=== PATIENT | male | born 1970 | race Two or more races ===

== ENCOUNTER 2022-10-05 17:41 | Emergency (ER) | payer MEDICAID ==
[~2022-10-05] VITALS: Ht 160 cm; Wt 72.2 kg
[2022-10-05 19:37] VITALS: BP 113/72
[2022-10-05] MEDS ORDERED: IBUP800T26 PO (22:41)
[2022-10-05] MEDS ORDERED: PROM1SOL4 PO (22:41)
[2022-10-05] MEDS ORDERED: IBUPROFEN 800 MG TAB PO ONE (22:45)
== END 2022-10-05 22:48 | disposition home or self-care (01) ==
LOC: ER 17:41
DX: U07.1 COVID-19 (principal); E11.9 Type 2 diabetes mellitus without complications; K21.9 Gastro-esophageal reflux disease without esophagitis; E78.5 Hyperlipidemia, unspecified
CPT/HCPCS: 36415; 71046; 87426; 87804

== ENCOUNTER 2022-10-09 20:05 | Emergency (ER) | payer MEDICAID ==
[~2022-10-09] VITALS: Ht 165.1 cm; Wt 80.0 kg
[~2022-10-09 20:05] MED LIST: IBUP800T26 PO; PROM1SOL4 PO
[2022-10-09 22:17] LABS: Basophils # (auto) 0 10 ^3/uL (0-0.2); Basophils % (auto) 0.7 % (0.0-2.0); Eosinophils # (auto) 0.3 10 ^3/uL (0-0.8); Eosinophils % (auto) 6.6 % (0.0-7.0); Hematocrit 44.3 % (41.0-53.0); Hemoglobin 14.9 g/dL (13.5-17.5); Lymphocytes # (auto) 2.3 10 ^3/uL (0.4-5.4); Lymphocytes % (auto) 44.2 % (10.0-50.0); Mean Corpuscular Hemoglobin 33.7 pg (28.0-32.0); Mean Corpuscular Hgb Conc. 33.6 g/dL (32.0-36.0); Mean Corpuscular Volume 100.2 fL (80.0-100.0); Monocytes # (auto) 0.7 10 ^3/uL (0-1.3); Monocytes % (auto) 13.3 % (0.0-12.0); Neutrophils # (auto) 1.8 10 ^3/uL (1.6-8.6); Neutrophils % (auto) 35.2 % (37.0-80.0); Nucleated Red Blood Cells % 0.4 %; Red Blood Cells 4.42 10^6/uL (4.5-5.90); Red Cell Distribution Width 13.8 % (11.8-14.3); White Blood Cell 5.2 10^3/uL (4.4-10.8)
[2022-10-09 22:30] LABS: INR 0.94 (0.9-1.15); Partial Thromboplastin Time 28.8 sec (24.6-33.4)
[2022-10-09 22:33] LABS: Albumin 3.6 g/dL (3.4-5.0); BUN/Creatinine Ratio 18.4 (10.0-20.0); Calcium 8.6 mg/dL (8.5-10.1); Potassium 3.6 mmol/L (3.5-5.1)
[2022-10-09 22:35] LABS: Bilirubin, Total 0.1 mg/dL (0.2-1.0); Total Protein 7.9 g/dL (6.4-8.2)
[2022-10-09] MEDS ORDERED: KETOROLAC TROMETH 60MG/2ML VIAL IM ONE (22:45)
[2022-10-09] MEDS ORDERED: NAP500T PO (22:55)
[2022-10-09 23:21] VITALS: BP 118/74
== END 2022-10-09 23:24 | disposition home or self-care (01) ==
LOC: ER 20:05
DX: U07.1 COVID-19 (principal); E11.9 Type 2 diabetes mellitus without complications; K21.9 Gastro-esophageal reflux disease without esophagitis; E78.5 Hyperlipidemia, unspecified; I20.9 Angina pectoris, unspecified
CPT/HCPCS: 36415; 71045; 80053; 83880; 84484; 85025; 85610; 85730; 87426; 93005; 96372; 99285; J1885

== ENCOUNTER 2023-02-01 16:59 | Emergency (ER) | payer MEDICAID ==
[~2023-02-01] VITALS: Ht 167.6 cm; Wt 70.4 kg
[~2023-02-01 16:59] MED LIST changes: +IBUP-1455 PO; -IBUP800T26 PO; +NAP500T PO
[2023-02-01] MEDS ORDERED: ALBUAER3 IN (19:07)
[2023-02-01] MEDS ORDERED: PRED20TA2 PO (19:07)
[2023-02-01] MEDS ORDERED: AUG875T PO (19:07)
[2023-02-01] MEDS ORDERED: BENZ200C64 PO (19:07)
[2023-02-01] MEDS ORDERED: ALBUTEROL SULF 2.5 MG/0.5ML(0.5%) NEB SOLN NEB ONE (19:15)
[2023-02-01] MEDS ORDERED: DexAMETHasone SOD PHOS 10MG/1ML VIAL INJ IM ONE (19:15)
[2023-02-01] MEDS ORDERED: IPRATROPIUM BROM 0.5 MG/2.5ML INH SOL NEB ONE (19:15)
[2023-02-01 20:26] VITALS: BP 106/81; PULSE 78; RESP 17; TEMP 98.6; O2SAT 96
== END 2023-02-01 20:41 | disposition home or self-care (01) ==
LOC: ER 16:59
DX: J20.9 Acute bronchitis, unspecified (principal); J02.9 Acute pharyngitis, unspecified; E78.5 Hyperlipidemia, unspecified; K21.9 Gastro-esophageal reflux disease without esophagitis; E11.9 Type 2 diabetes mellitus without complications; R06.02 Shortness of breath
CPT/HCPCS: 71045; 94640; 96372; 99283; J1100; J7644

== ENCOUNTER 2023-02-06 01:17 | Emergency (ER) | payer MEDICAID ==
[~2023-02-06] VITALS: Ht 167.6 cm; Wt 160.0 kg
[~2023-02-06 01:17] MED LIST changes: +ALBUAER3 IN; +AUG875T PO; +BENZ200C64 PO
[2023-02-06 02:18] LABS: Basophils # (auto) 0 10 ^3/uL (0-0.2); Basophils % (auto) 0.1 % (0.0-2.0); Eosinophils # (auto) 0 10 ^3/uL (0-0.8); Eosinophils % (auto) 0.2 % (0.0-7.0); Hemoglobin 14.8 g/dL (13.5-17.5); Monocytes # (auto) 0.9 10 ^3/uL (0-1.3); Monocytes % (auto) 8.9 % (0.0-12.0); Neutrophils # (auto) 7.4 10 ^3/uL (1.6-8.6)
[2023-02-06 02:20] LABS: Hematocrit 44.7 % (41.0-53.0); Lymphocytes # (auto) 1.5 10 ^3/uL (0.4-5.4); Lymphocytes % (auto) 15.7 % (10.0-50.0); Mean Corpuscular Hemoglobin 34.1 pg (28.0-32.0); Mean Corpuscular Hgb Conc. 33.1 g/dL (32.0-36.0); Mean Corpuscular Volume 103.2 fL (80.0-100.0); Neutrophils % (auto) 75.1 % (37.0-80.0); Red Blood Cells 4.33 10^6/uL (4.5-5.90); Red Cell Distribution Width 13.7 % (11.8-14.3); White Blood Cell 9.8 10^3/uL (4.4-10.8)
[2023-02-06 03:29] LABS: Alanine Aminotransferase 41 U/L (7-40); Albumin 4.3 g/dL (3.2-4.8); Alkaline Phosphatase 106 U/L (46-116); Anion Gap 9.4 (5-15); Aspartate Aminotransferase 24 U/L (13-40); BUN/Creatinine Ratio 21.7 (10.0-20.0); Blood Urea Nitrogen 20 mg/dL (9-23); Calcium 8.7 mg/dL (8.7-10.4); Carbon Dioxide 18.6 mmol/L (20-30); Chloride 113 mmol/L (98-107); Glucose 123 mg/dL (74-106); Magnesium 2.1 mg/dL (1.6-2.6); Potassium 3.4 mmol/L (3.5-5.1); Sodium 141 mmol/L (136-145)
[2023-02-06 03:30] LABS: Bilirubin, Total 0.4 mg/dL (0.2-1.0); Total Protein 6.9 g/dL (5.7-8.2)
[2023-02-06] MEDS ORDERED: IPRATROPIUM BROM 0.5 MG/2.5ML INH SOL NEB ONE (07:15)
[2023-02-06] MEDS ORDERED: ALBUTEROL SULF 2.5 MG/0.5ML(0.5%) NEB SOLN NEB ONE (07:15)
[2023-02-06] MEDS ORDERED: DexAMETHasone SOD PHOS 10MG/1ML VIAL INJ IV ONE (07:15)
[2023-02-06] MEDS ORDERED: DexAMETHasone SOD PHOS 10MG/1ML VIAL INJ IM ONE (07:45)
[2023-02-06] MEDS ORDERED: PRED10TA PO (07:53)
[2023-02-06 08:39] LABS: Urine Bacteria NONE SEEN /hpf (None Seen); Urine Blood Negative /uL (Negative); Urine Clarity Clear (Clear); Urine Mucus FEW (None Seen); Urine Protein, UAD Negative (Negative); Urine Specific Gravity 1.029 (1.001-1.035); Urine Urobilinogen Normal (Negative); Urine WBC <1 /hpf (0 - 3)
[2023-02-06 08:42] LABS: Urine Color Straw (Yellow)
[2023-02-06 11:50] VITALS: BP 135/81; PULSE 61; RESP 17; TEMP 97.9; O2SAT 81
== END 2023-02-06 11:55 | disposition home or self-care (01) ==
LOC: ER 01:19
DX: J20.9 Acute bronchitis, unspecified (principal); E78.5 Hyperlipidemia, unspecified; K21.9 Gastro-esophageal reflux disease without esophagitis; E11.9 Type 2 diabetes mellitus without complications
CPT/HCPCS: 36415; 71045; 71275; 80053; 81001; 83735; 83880; 84484; 85025; 94640; 96372; 99285; J1100; J7644; Q9967

== ENCOUNTER 2023-03-08 18:10 | Emergency (ER) | payer MEDICAID ==
[~2023-03-08] VITALS: Ht 170.2 cm; Wt 72.8 kg
[~2023-03-08 18:10] MED LIST changes: +PRED10TA PO
[2023-03-08 19:18] LABS: Urine Bacteria NONE SEEN /hpf (None Seen); Urine Blood Negative /uL (Negative); Urine Clarity Clear (Clear); Urine Color Colorless (Yellow); Urine Protein, UAD Negative (Negative); Urine Specific Gravity 1.012 (1.001-1.035); Urine Urobilinogen Normal (Negative); Urine WBC <1 /hpf (0 - 3)
[2023-03-08 20:41] VITALS: BP 104/74; PULSE 80; RESP 18; TEMP 98.6; O2SAT 98
[2023-03-08 22:08] LABS: Basophils # (auto) 0 10 ^3/uL (0-0.2); Basophils % (auto) 0.7 % (0.0-2.0); Eosinophils # (auto) 0.1 10 ^3/uL (0-0.8); Hematocrit 44.4 % (41.0-53.0); Hemoglobin 15.1 g/dL (13.5-17.5); Lymphocytes # (auto) 2.6 10 ^3/uL (0.4-5.4); Mean Corpuscular Hemoglobin 34.8 pg (28.0-32.0); Mean Corpuscular Hgb Conc. 34.1 g/dL (32.0-36.0); Mean Corpuscular Volume 102.1 fL (80.0-100.0); Monocytes # (auto) 0.9 10 ^3/uL (0-1.3); Monocytes % (auto) 11.8 % (0.0-12.0); Neutrophils # (auto) 3.8 10 ^3/uL (1.6-8.6); Neutrophils % (auto) 50.5 % (37.0-80.0); Nucleated Red Blood Cells % 0.1 %; Red Blood Cells 4.35 10^6/uL (4.5-5.90); Red Cell Distribution Width 13.8 % (11.8-14.3); White Blood Cell 7.5 10^3/uL (4.4-10.8)
[2023-03-08 22:21] LABS: Alanine Aminotransferase 32 U/L (7-40); Albumin 4.7 g/dL (3.2-4.8); Alkaline Phosphatase 110 U/L (46-116); Anion Gap 7 (5-15); Aspartate Aminotransferase 29 U/L (13-40); BUN/Creatinine Ratio 13.2 (10.0-20.0); Blood Urea Nitrogen 12 mg/dL (9-23); Calcium 9.1 mg/dL (8.7-10.4); Carbon Dioxide 26 mmol/L (20-30); Chloride 107 mmol/L (98-107); Glucose 98 mg/dL (74-106); Potassium 3.7 mmol/L (3.5-5.1); Sodium 140 mmol/L (136-145)
[2023-03-08 22:22] LABS: Bilirubin, Total 0.4 mg/dL (0.2-1.0); Total Protein 7.4 g/dL (5.7-8.2)
[2023-03-08] MEDS ORDERED: CEPH500T PO (23:34)
[2023-03-08] MEDS ORDERED: AZITTAB PO (23:37)
== END 2023-03-08 23:34 | disposition home or self-care (01) ==
LOC: ER 18:10
DX: N39.0 Urinary tract infection, site not specified (principal); J06.9 Acute upper respiratory infection, unspecified; E11.9 Type 2 diabetes mellitus without complications; K21.9 Gastro-esophageal reflux disease without esophagitis; E78.5 Hyperlipidemia, unspecified; Z79.2 Long term (current) use of antibiotics; Z79.1 Long term (current) use of non-steroidal anti-inflammatories (NSAID); Z79.899 Other long term (current) drug therapy
CPT/HCPCS: 36415; 74176; 80053; 81001; 85025

== ENCOUNTER 2023-04-23 15:34 | Emergency (ER) | payer MEDICAID ==
[~2023-04-23] VITALS: Ht 167.6 cm; Wt 75.5 kg
[~2023-04-23 15:34] MED LIST changes: +AZITTAB PO; +CEPH500T PO
[2023-04-23 16:29] LABS: Basophils # (auto) 0 10 ^3/uL (0-0.2); Basophils % (auto) 0.6 % (0.0-2.0); Eosinophils # (auto) 0.3 10 ^3/uL (0-0.8); Mean Corpuscular Hgb Conc. 34.2 g/dL (32.0-36.0); Nucleated Red Blood Cells % 0.1 %; Red Cell Distribution Width 13.5 % (11.8-14.3)
[2023-04-23 16:30] LABS: Eosinophils % (auto) 3.5 % (0.0-7.0); Hematocrit 43.8 % (41.0-53.0); Lymphocytes # (auto) 2.3 10 ^3/uL (0.4-5.4); Mean Corpuscular Hemoglobin 34.9 pg (28.0-32.0); Mean Corpuscular Volume 102.2 fL (80.0-100.0); Monocytes # (auto) 0.8 10 ^3/uL (0-1.3); Monocytes % (auto) 10.7 % (0.0-12.0); Neutrophils # (auto) 4.4 10 ^3/uL (1.6-8.6); Neutrophils % (auto) 56.2 % (37.0-80.0); Red Blood Cells 4.29 10^6/uL (4.5-5.90); White Blood Cell 7.9 10^3/uL (4.4-10.8)
[2023-04-23 16:45] LABS: Alanine Aminotransferase 30 U/L (7-40); Albumin 4.5 g/dL (3.2-4.8); Alkaline Phosphatase 110 U/L (46-116); Anion Gap 6 (5-15); Aspartate Aminotransferase 27 U/L (13-40); BUN/Creatinine Ratio 12.1 (10.0-20.0); Bilirubin, Total 0.3 mg/dL (0.2-1.0); Blood Urea Nitrogen 11 mg/dL (9-23); Calcium 9.3 mg/dL (8.7-10.4); Carbon Dioxide 25 mmol/L (20-30); Chloride 110 mmol/L (98-107); Glucose 93 mg/dL (74-106); Lipase 49 U/L (12-53); Sodium 141 mmol/L (136-145); Total Protein 6.9 g/dL (5.7-8.2)
[2023-04-23 18:14] VITALS: BP 127/80; PULSE 86; RESP 18; TEMP 98.2; O2SAT 99
[2023-04-23 18:38] LABS: Urine Bacteria FEW /hpf (None Seen); Urine Blood Negative /uL (Negative); Urine Clarity Clear (Clear); Urine Color Yellow (Yellow); Urine Hyaline Cast FEW /lpf (0 - 2); Urine Protein, UAD Negative (Negative); Urine Specific Gravity 1.021 (1.001-1.035); Urine Urobilinogen Normal (Negative); Urine WBC <1 /hpf (0 - 3); Urine pH 5.5 (5.0-8.0)
== END 2023-04-23 18:15 | disposition home or self-care (01) ==
LOC: ER 15:34
DX: R10.84 Generalized abdominal pain (principal); R11.2 Nausea with vomiting, unspecified; R19.7 Diarrhea, unspecified; E11.9 Type 2 diabetes mellitus without complications; K21.9 Gastro-esophageal reflux disease without esophagitis; E78.5 Hyperlipidemia, unspecified; Z79.899 Other long term (current) drug therapy
CPT/HCPCS: 36415; 74176; 80053; 81001; 83690; 83735; 84484; 85025; 93005

== ENCOUNTER 2023-05-10 17:20 | Emergency (ER) | payer MEDICAID ==
[~2023-05-10] VITALS: Ht 170.2 cm; Wt 77.1 kg
[2023-05-10 17:27] VITALS: BP 114/73; RESP 16; O2SAT 97
[2023-05-10 17:37] VITALS: PULSE 89
[2023-05-10 18:44] LABS: Basophils # (auto) 0.1 10 ^3/uL (0-0.2); Basophils % (auto) 0.6 % (0.0-2.0); Eosinophils # (auto) 0.3 10 ^3/uL (0-0.8); Eosinophils % (auto) 2.9 % (0.0-7.0); Hematocrit 42.7 % (41.0-53.0); Hemoglobin 14.5 g/dL (13.5-17.5); Lymphocytes # (auto) 2.9 10 ^3/uL (0.4-5.4); Lymphocytes % (auto) 33.3 % (10.0-50.0); Mean Corpuscular Hemoglobin 34.7 pg (28.0-32.0); Mean Corpuscular Volume 102.2 fL (80.0-100.0); Monocytes # (auto) 0.8 10 ^3/uL (0-1.3); Monocytes % (auto) 9.2 % (0.0-12.0); Neutrophils # (auto) 4.8 10 ^3/uL (1.6-8.6); Nucleated Red Blood Cells % 0.1 %; Red Blood Cells 4.18 10^6/uL (4.5-5.90); Red Cell Distribution Width 13.4 % (11.8-14.3); White Blood Cell 8.8 10^3/uL (4.4-10.8)
[2023-05-10 19:00] LABS: Alanine Aminotransferase 40 U/L (7-40); Albumin 4.4 g/dL (3.2-4.8); Alkaline Phosphatase 111 U/L (46-116); Amylase 59 U/L (30-118); Anion Gap 6 (5-15); Aspartate Aminotransferase 29 U/L (13-40); BUN/Creatinine Ratio 16.7 (10.0-20.0); Blood Urea Nitrogen 16 mg/dL (9-23); Calcium 8.9 mg/dL (8.7-10.4); Carbon Dioxide 26 mmol/L (20-30); Chloride 107 mmol/L (98-107); Glucose 103 mg/dL (74-106); Lipase 44 U/L (12-53); Magnesium 2.1 mg/dL (1.6-2.6); Potassium 4.4 mmol/L (3.5-5.1); Sodium 139 mmol/L (136-145)
[2023-05-10 19:01] LABS: Bilirubin, Total 0.3 mg/dL (0.2-1.0); Total Protein 6.8 g/dL (5.7-8.2)
[2023-05-10] MEDS ORDERED: GOLYTELY 4L KIT PO ONE (19:30)
== END 2023-05-11 00:58 | disposition left against medical advice (07) ==
LOC: ER 17:20
DX: K59.00 Constipation, unspecified (principal); E11.9 Type 2 diabetes mellitus without complications; K21.9 Gastro-esophageal reflux disease without esophagitis; E78.5 Hyperlipidemia, unspecified
CPT/HCPCS: 36415; 74176; 80053; 82150; 83605; 83690; 83735; 84484; 85025; 93005

== ENCOUNTER 2023-12-30 10:34 | Emergency (ER) | payer MEDICAID ==
[~2023-12-30] VITALS: Ht 167.6 cm; Wt 73.5 kg
[2023-12-30 11:15] VITALS: BP 127/75; PULSE 62; RESP 20; TEMP 99; O2SAT 96
[2023-12-30] MEDS: IBUPROFEN 800 MG TAB PO ONE (11:23)
[2023-12-30] MEDS: cefTRIAXone SOD 1,000 MG VL IM ONE (11:26)
[2023-12-30] MEDS ORDERED: CEPH500C PO (11:42)
[2023-12-30] MEDS ORDERED: IBUP-1454 PO (11:42)
== END 2023-12-30 11:55 | disposition home or self-care (01) ==
LOC: ER 10:34
DX: J03.90 Acute tonsillitis, unspecified (principal); I25.2 Old myocardial infarction; E78.5 Hyperlipidemia, unspecified; K21.9 Gastro-esophageal reflux disease without esophagitis; E11.9 Type 2 diabetes mellitus without complications; I25.10 Atherosclerotic heart disease of native coronary artery without angina pectoris; Z79.899 Other long term (current) drug therapy
CPT/HCPCS: 71045; 96372; 99283; J0696

== ENCOUNTER 2024-03-14 16:35 | Inpatient (IN) | payer MEDICAID ==
[~2024-03-14] VITALS: Ht 167.6 cm; Wt 74.1 kg
[~2024-03-14 16:35] MED LIST changes: +CEPH500C PO; +IBUP-1454 PO
[2024-03-14 17:27] LABS: Basophils # (auto) 0 10 ^3/uL (0-0.2); Eosinophils # (auto) 0.2 10 ^3/uL (0-0.8); Hemoglobin 14.8 g/dL (13.5-17.5); Monocytes # (auto) 1.1 10 ^3/uL (0-1.3); Neutrophils # (auto) 5.1 10 ^3/uL (1.6-8.6); White Blood Cell 7.2 10^3/uL (4.4-10.8)
[2024-03-14 17:29] LABS: Basophils % (auto) 0.6 % (0.0-2.0); Eosinophils % (auto) 3.3 % (0.0-7.0); Hematocrit 42.5 % (41.0-53.0); Lymphocytes # (auto) 0.7 10 ^3/uL (0.4-5.4); Lymphocytes % (auto) 10.2 % (10.0-50.0); Mean Corpuscular Hemoglobin 35.7 pg (28.0-32.0); Mean Corpuscular Hgb Conc. 34.9 g/dL (32.0-36.0); Mean Corpuscular Volume 102.3 fL (80.0-100.0); Monocytes % (auto) 15.5 % (0.0-12.0); Neutrophils % (auto) 70.4 % (37.0-80.0); Nucleated Red Blood Cells % 0.2 %; Platelet Count (auto) 215 10^3/uL (140-450); Red Blood Cells 4.15 10^6/uL (4.5-5.90); Red Cell Distribution Width 13.7 % (11.8-14.3)
[2024-03-14 17:41] LABS: Partial Thromboplastin Time 28.1 SEC (24.5-34.5); Prothrombin Time 10.6 sec (9.3-11.8)
[2024-03-14 17:45] LABS: Alanine Aminotransferase 37 U/L (7-40); Albumin 4.4 g/dL (3.2-4.8); Alkaline Phosphatase 125 U/L (46-116); Anion Gap 8 (5-15); Aspartate Aminotransferase 26 U/L (13-40); BUN/Creatinine Ratio 16.9 (10.0-20.0); Bilirubin, Total 0.3 mg/dL (0.2-1.0); Blood Urea Nitrogen 14 mg/dL (9-23); Calcium 9.8 mg/dL (8.7-10.4); Carbon Dioxide 24 mmol/L (20-31); Chloride 109 mmol/L (98-107); Glucose 99 mg/dL (74-106); Potassium 4.2 mmol/L (3.5-5.1); Sodium 141 mmol/L (136-145)
[2024-03-14] MEDS ORDERED: NITROGLYCERIN 0.4 MG SL TAB SL PRN (23:45)
[2024-03-14] MEDS ORDERED: hydrALAZINE HCL 20 MG/ML VL IV PRN (23:45)
[2024-03-15] VITALS (7 sets, daily range): BP systolic 100–115; BP diastolic 72–80; PULSE 95–108; RESP 18–20; TEMP 97.8–98.2; O2SAT 96–99
[2024-03-15 01:44] LABS: COVID19 ANTIGEN SOFIA FIA NEGATIVE (NEGATIVE)
[2024-03-15 01:45] LABS: Rapid Influenza B Negative (Negative)
[2024-03-15 01:47] LABS: Rapid Influenza A Positive (Negative)
[2024-03-15] MEDS: OSELTAMIVIR 75 MG CAP PO ONE (02:34)
[2024-03-15] MEDS ORDERED: LACTATED RINGER'S 1,000 ML IV SCH (06:15)
[2024-03-15] MEDS: cefTRIAXone 1GM/50ML D5W 50 ML IV ONE (06:34)
[2024-03-15] MEDS: SODIUM CHLORIDE 0.9% 500 ML IV ONE (06:34)
[2024-03-15] MEDS: AZITHROMYCIN 500MG/ 250ML 250 ML IV ONE (07:49)
[2024-03-15 09:29] LABS: Hemoglobin 14.6 g/dL (13.5-17.5); White Blood Cell 5.8 10^3/uL (4.4-10.8)
[2024-03-15 09:31] LABS: Mean Corpuscular Hemoglobin 34.9 pg (28.0-32.0); Mean Corpuscular Volume 102.7 fL (80.0-100.0); Platelet Count (auto) 184 10^3/uL (140-450); Red Blood Cells 4.19 10^6/uL (4.5-5.90)
[2024-03-15 09:34] LABS: Basophils % (manual) 0 (0.0-2.0); Blast Cells 0; Metamyelocytes % 0; Myelocytes % 0; Promyelocytes % 0; Reactive Lymphocytes 0
[2024-03-15] MEDS: ACETAMINOPHEN 325 MG TAB PO ONE (09:37)
[2024-03-15 09:39] LABS: Alanine Aminotransferase 35 U/L (7-40); Albumin 4.2 g/dL (3.2-4.8); Alkaline Phosphatase 98 U/L (46-116); Anion Gap 7 (5-15); Aspartate Aminotransferase 22 U/L (13-40); BUN/Creatinine Ratio 9.1 (10.0-20.0); Bilirubin, Total 0.4 mg/dL (0.2-1.0); Blood Urea Nitrogen 8 mg/dL (9-23); Calcium 8.8 mg/dL (8.7-10.4); Carbon Dioxide 25 mmol/L (20-31); Chloride 108 mmol/L (98-107); Glucose 113 mg/dL (74-106); Potassium 3.7 mmol/L (3.5-5.1); Sodium 140 mmol/L (136-145); Total Protein 6.9 g/dL (5.7-8.2)
[2024-03-15 09:54] LABS: Band Neutrophils % (manual) 4; Lymphocytes % (manual) 12 (10.0-50.0)
[2024-03-15 09:55] LABS: Eosinophils % (manual) 2 (0-7); Macrocytosis Slight; Monocytes % (manual) 20 (0-12); Platelet Estimate Adequate
[2024-03-15] MEDS: PANTOPRAZOLE 40 MG/10 ML VIAL INJ IV SCH (10:04)
[2024-03-15] MEDS: OSELTAMIVIR 75 MG CAP PO SCH (10:04)
[2024-03-15 11:08] LABS: Free T3 2.61 pg/mL (2.3-4.2); Free T4 (Free Thyroxine) 0.94 ng/dL (0.89-1.76)
[2024-03-15] MEDS: ERGOCALCIFEROL 50,000 UNIT(1.25MG) CAP PO SCH (13:11)
[2024-03-15 17:14] LABS: Urine Bacteria None Seen /hpf (None Seen); Urine WBC None Seen /hpf (0 - 3)
[2024-03-15 17:23] LABS: Urine Blood Negative /uL (Negative); Urine Clarity Clear (Clear); Urine Color Light-Yellow (Yellow); Urine Mucus FEW (None Seen); Urine Protein, UAD Negative (Negative); Urine Specific Gravity 1.016 (1.001-1.035); Urine Urobilinogen Normal (Negative)
[2024-03-15 17:39] LABS: Amphetamine Screen, Urine Neg (NEGATIVE); Barbiturate Scree,Urine Neg (NEGATIVE); Benzodiazephine Screen, Urine Neg (NEGATIVE); Cocaine Screen, Urine Neg (NEGATIVE); Opiate Scree,Urine Neg (NEGATIVE)
[2024-03-15 17:40] LABS: Cannabinoid Screen, Urine Neg (NEGATIVE); Phencyclidine Screen, Urine Neg (NEGATIVE)
[2024-03-15] MEDS: MORPHINE SULFATE INJ 2 MG/ml SYRG IV PRN (23:43)
[2024-03-16] VITALS (10 sets, daily range): BP systolic 110–118; BP diastolic 69–79; PULSE 71–100; RESP 17–20; TEMP 98–99.5; O2SAT 93–99
[2024-03-16] MEDS ORDERED: DARU1TAB3 PO (00:12)
[2024-03-16] MEDS ORDERED: PANT40T PO (00:12)
[2024-03-16 06:36] LABS: Hematocrit 46.2 % (41.0-53.0); Hemoglobin 15.8 g/dL (13.5-17.5); Mean Corpuscular Hemoglobin 35.2 pg (28.0-32.0); Mean Corpuscular Hgb Conc. 34.2 g/dL (32.0-36.0); Mean Corpuscular Volume 103.1 fL (80.0-100.0); Platelet Count (auto) 188 10^3/uL (140-450); Red Blood Cells 4.48 10^6/uL (4.5-5.90); White Blood Cell 6.4 10^3/uL (4.4-10.8)
[2024-03-16 06:41] LABS: Band Neutrophils % (manual) 0; Basophils % (manual) 0 (0.0-2.0); Blast Cells 0; Eosinophils % (manual) 0 (0-7); Metamyelocytes % 0; Myelocytes % 0; Promyelocytes % 0; Reactive Lymphocytes 0
[2024-03-16 06:45] LABS: Chloride 107 mmol/L (98-107); Potassium 3.8 mmol/L (3.5-5.1); Sodium 137 mmol/L (136-145)
[2024-03-16 06:46] LABS: Anion Gap 6 (5-15); Calcium 9.1 mg/dL (8.7-10.4); Carbon Dioxide 24 mmol/L (20-31)
[2024-03-16 06:51] LABS: BUN/Creatinine Ratio 12.4 (10.0-20.0); Blood Urea Nitrogen 12 mg/dL (9-23); Glucose 107 mg/dL (74-106)
[2024-03-16 08:20] LABS: Lymphocytes % (manual) 23 (10.0-50.0); Monocytes % (manual) 20 (0-12)
[2024-03-16 08:21] LABS: Platelet Estimate Adequate
[2024-03-16] MEDS: ACETAMINOPHEN 325 MG TAB PO PRN (10:22)
[2024-03-16] MEDS: ALBUTEROL SULF 2.5 MG/0.5ML(0.5%) NEB SOLN NEB PRN (15:29)
[2024-03-16] MEDS: IPRATROPIUM BROM 0.5 MG/2.5ML INH SOL NEB PRN (15:29)
[2024-03-17] VITALS (7 sets, daily range): BP systolic 92–117; BP diastolic 60–74; PULSE 64–87; RESP 18–20; TEMP 97.9–98.8; O2SAT 95–99
[2024-03-17 06:56] LABS: Hematocrit 49.6 % (41.0-53.0); Mean Corpuscular Hemoglobin 35.5 pg (28.0-32.0); Mean Corpuscular Hgb Conc. 34.3 g/dL (32.0-36.0); Mean Corpuscular Volume 103.8 fL (80.0-100.0); Platelet Count (auto) 190 10^3/uL (140-450); Red Blood Cells 4.78 10^6/uL (4.5-5.90); Red Cell Distribution Width 14.2 % (11.8-14.3)
[2024-03-17 07:00] LABS: Band Neutrophils % (manual) 0; Basophils % (manual) 0 (0.0-2.0); Blast Cells 0; Metamyelocytes % 0; Myelocytes % 0; Promyelocytes % 0; Reactive Lymphocytes 0
[2024-03-17 07:03] LABS: Chloride 105 mmol/L (98-107); Potassium 4.1 mmol/L (3.5-5.1); Sodium 138 mmol/L (136-145)
[2024-03-17 07:04] LABS: Anion Gap 7 (5-15); Calcium 9.6 mg/dL (8.7-10.4); Carbon Dioxide 26 mmol/L (20-31)
[2024-03-17 07:09] LABS: BUN/Creatinine Ratio 11.3 (10.0-20.0); Blood Urea Nitrogen 12 mg/dL (9-23); Glucose 103 mg/dL (74-106)
[2024-03-17] MEDS ORDERED: TAMIFLU PO (10:29)
[2024-03-17] MEDS ORDERED: ERGO1CAP23 PO (10:29)
[2024-03-17] MEDS ORDERED: ALBUAER3 IN (10:29)
[2024-03-17] MEDS ORDERED: ACET-1882 PO (10:29)
[2024-03-17 10:32] LABS: Eosinophils % (manual) 1 (0-7); Lymphocytes % (manual) 52 (10.0-50.0); Monocytes % (manual) 10 (0-12); Platelet Estimate Adequate
== END 2024-03-17 14:10 | disposition home or self-care (01) | DRG 720 ==
LOC: ER 16:41 → TELE 23:53 → TELE-WESTW 03-15 23:05
PROVIDERS: ADMIT Internal Medicine; ATTEND Internal Medicine
DX: A41.89 Other specified sepsis (principal); J96.01 Acute respiratory failure with hypoxia; K76.0 Fatty (change of) liver, not elsewhere classified; J10.1 Influenza due to other identified influenza virus with other respiratory manifestations; E11.9 Type 2 diabetes mellitus without complications; Z20.822 Contact with and (suspected) exposure to COVID-19; K21.9 Gastro-esophageal reflux disease without esophagitis; K29.70 Gastritis, unspecified, without bleeding; E55.9 Vitamin D deficiency, unspecified; J44.9 Chronic obstructive pulmonary disease, unspecified; E78.5 Hyperlipidemia, unspecified; I25.10 Atherosclerotic heart disease of native coronary artery without angina pectoris; Z79.899 Other long term (current) drug therapy; Z87.11 Personal history of peptic ulcer disease; Z79.4 Long term (current) use of insulin
CPT/HCPCS: 36415; 71045; 74176; 76705; 80048; 80053; 80307; 81001; 82306; 82607; 83036; 83880; 84439; 84443; 84481; 84484; 85007; 85025; 85027; 85379; 85610; 85730; 87081; 87426; 87804; 93005; 94640; G0378; J2470

== ENCOUNTER 2024-05-13 16:29 | Emergency (ER) | payer MEDICAID ==
[~2024-05-13] VITALS: Ht 167.6 cm; Wt 75.4 kg
[~2024-05-13 16:29] MED LIST changes: +ACET-1882 PO; -AUG875T PO; -AZITTAB PO; -BENZ200C64 PO; -CEPH500C PO; -CEPH500T PO; +DARU1TAB3 PO; +ERGO1CAP23 PO; -IBUP-1454 PO; -IBUP-1455 PO; -NAP500T PO; +PANT40T PO; -PRED10TA PO; -PROM1SOL4 PO; +TAMIFLU PO
[2024-05-13 17:19] LABS: Urine Bacteria None Seen /hpf (None Seen)
[2024-05-13 17:34] LABS: Urine Amorphous Crystal FEW /hpf (None Seen); Urine Blood Negative /uL (Negative); Urine Clarity Clear (Clear); Urine Color Light-Yellow (Yellow); Urine Protein, UAD Negative (Negative); Urine Specific Gravity 1.014 (1.001-1.035); Urine Urobilinogen Normal (Negative); Urine WBC 1 /hpf (0 - 3); Urine pH 7.5 (5.0-9.0)
--- NOTE | 2024-05-13 19:14 | ED.PDOC ---
General HPI Comments 53 year old male presents to ER with urinary complaint x 1 day. Patient reports he has been experiencing a burning sensation to shaft of his penis along with body aches and dysuria x 1 day. States that his symptoms started 4 days after his condom broke while he was having sexual intercourse with his female neighbor. He reports 9/10 pain to mid shaft of penis and 9/10 burning pain with urination, denying any other pain. Denies skin changes, fever, night sweats, fatigue, weight changes, joint pain, n/v, abdominal/pelvic pain, back/flank pain, penile discharge, further changes in urination or any further symptoms/complaints Chief Complaint: Penile Problem Time Seen by MD: 18:06 Primary Care Provider: UNKNOWN Reviewed notes: Nurses Notes, Medications, Allergies Allergies: Coded Allergies: NO KNOWN ALLERGIES (Unverified , 09/21/22) Home Meds Active Scripts Acetaminophen (Acetaminophen) 500 Mg Tab, 500 MG PO Q4HP, #30 TAB 0 Refills Prov:MARYLIN AREVALO 05/13/24 Albuterol Sulfate (VENTOLIN MDI) 90 Mcg Ih, 90 MCG IN Q4HP PRN for 30 Days, #1 INH Prov:ANTONIO CASANOVA RESIDENT 03/17/24 Oseltamivir Phosphate (Tamiflu) 75 Mg Cap, 75 MG PO Q12HR for 3 Days, #6 CAP Prov:ANTONIO CASANOVA 03/17/24 Ergocalciferol (VITAMIN D 55995 UNIT) 50,000 [place], [address] UNIT PO Q7D for 90 Days, #12 CAP Prov:ANTONIO CASANOVA RESIDENT 03/17/24 Acetaminophen (Acetaminophen) 325 Mg Tab, 650 MG PO Q6HP PRN for 5 Days, #40 TAB Prov:ANTONIO CASANOVA 03/17/24 Reported Medications Pantoprazole Sodium Sesquihydr (Pantoprazole Sodium) 40 Mg Tab, 1 TAB PO DAILY 03/16/24 Vlrfbjkwm-Thbiooismw-Satmngwmw (Symtuza [id number] mg) 1 Tab Tab, 1 TAB PO DAILY 03/16/24 Information Source: Patient Mode of Arrival: Ambulatory Past Medical History PAST MEDICAL HISTORY: Angina, CAD, DM, GERD, High Lipids, NC Surgical History: Denies all surgeries Family History Family History: Unknown Social History Smoker: Non-Smoker Alcohol: Denies ETOH Use Drugs: Denies Drug Use Lives In: Home Constitutional: denies: chills, diaphoresis, fatigue, fever, malaise, sweats, weakness, others EENTM: denies: blurred vision, double vision, ear bleeding, ear discharge, ear drainage, ear pain, ear ringing, eye pain, eye redness, hearing loss, mouth pain, mouth swelling, nasal discharge, nose bleeding, nose congestion, nose pain, photophobia, tearing, throat pain, throat swelling, voice changes, others Respiratory: denies: cough, hemoptysis, orthopnea, SOB at rest, shortness of breath, SOB with excertion, stridor, wheezing, others Cardiovascular: denies: chest pain, dizzy spells, diaphoresis, Dyspnea on exertion, edema, irregular heart beat, left arm pain, lightheadedness, pal pitations, PND, syncope, others Gastrointestinal: denies: abdomen distended, abdominal pain, blood streaked bowels, constipated, diarrhea, dysphagia, difficulty swallowing, hematemesis, melena, nausea, poor appetite, poor fluid intake, rectal bleeding, rectal pain, vomiting, others Genitourinary: reports: others (As stated in HPI) Neurological: denies: dizziness, fainting, headache, left sided numbness, left sided weakness, numbness, paresthesia, pre-existing deficit, right sided numbness, right sided weakness, seizure, speech problems, tingling, tremors, weakness, others Musculoskeletal: denies: back pain, gout, joint pain, joint swelling, muscle pain, muscle stiffness, neck pain, others Integumetry: denies: bruises, change in color, change in hair/nails, dryness, laceration, lesions, lumps, rash, wounds, others Allergic/Immunocompromised: denies: Difficulty Healing, Frequent Infections, Hives, Itching, others Hematologic/Lymphatic: denies: anemia, blood clots, easy bleeding, easy bruising, swollen glands, others Endocrine: denies: excessive hunger, excessive sweating, excessive thirst, excessive urination, flushing, intolerance to cold, intolerance to heat, unexplained weight gain, unexplained weight loss, others Psychiatric: denies: anxiety, bipolar disorder, depression, hopeless, panic disorder, schizophrenia, sleepless, suicidal, others Physical Exam General Appearance: No Apparent Distress HEENT: PERRL/EOMI Neck: Full Range of Motion, Non-Tender, Normal Respiratory: Chest Non-Tender, Lungs Clear, No Accessory Muscle Use, No Respiratory Distress, Normal Breath Sounds Cardiovascular: No Murmur, No Gallop, Regular Rate/Rhythm Breast Exam: Deferred Gastrointestinal: Non Tender, No Pulsatile Mass, Soft Genitalia: Other (Patient uncircumcised, no rash/skin changes/penile discharge appreciated. Remainder of genitalia examination-unremarkable) Pelvic: Deferred Rectal: Deferred Extremities: Normal capillary refill, Normal range of motion Neurologic: Alert, business objects analyst II-XII nml as Tested, No Motor Deficits, Normal Affect, Normal Mood, No Sensory Deficits Cerebellar Function: Normal Reflexes: Normal Skin: Dry, Normal Color, Warm Lymphatic: No Adenopathy Was a procedure done? Was a procedure done?: No Sedation Sedation?: No Differential Diagnosis Kidney stone (Female): N/A Penile/Scrotal: STD Urinary Problem (Male): Urinary Retention, Urolithiasis, UTI X-Ray, Labs, Meds, VS Vital Signs Date Time Temp Pulse Resp B/P (MAP) Pulse Ox O2 Delivery O2 Flow Rate FiO2 05/13/24 19:33 96 Room Air 0 05/13/24 17:00 98.9 111 18 128/72 (90) 96 Lab Test 05/13/24 17:17 Range/Units Urine Color Light-yellow Yellow Urine Clarity Clear Clear Urine pH 7.5 5.0-9.0 Urine Specific Wendell 1.014 1.001-1.035 Urine Protein Negative Negative Urine Ketones Negative Negative Urine Blood Negative Negative /uL Urine Nitrite Negative Negative Urine Bilirubin Negative Negative Urine Urobilinogen Normal Negative mg/dL Urine Leukocyte Esterase Negative Negative /uL Urine RBC 1 0 - 3 /hpf Urine WBC 1 0 - 3 /hpf Urine Squamous Epithelial Cells None seen <5 /hpf Urine Amorphous Crystals Few None Seen /hpf Urine Bacteria None seen None Seen /hpf Urine Glucose Normal Normal mg/dL Current Medications Medications (Trade) Dose Ordered Sig/Marly Route Start Time Stop Time Status Last Admin Ceftriaxone Sodium (Rocephin) 1,000 mg ONCE ONCE IM 05/13/24 19:00 05/13/24 19:01 DC 05/13/24 19:28 Azithromycin (Zithromax Tablet) 1,000 mg ONCE ONCE PO 05/13/24 19:00 05/13/24 19:01 DC 05/13/24 19:28 Urinalysis reviewed without any significant abnormalities Rocephin 1 g IM ordered Azithromycin 1 g p.o. ordered Toradol 60 mg IM ordered RPR ordered Gonorrhea/chlamydia amplification test ordered Safe sex practices discussed and advised Advised to drink plenty of fluids Patient provided information with regards to local public Health Department and advised to follow up upon discharge for further STD testing Patient was also encouraged to advise his sexual partner to follow up for STD testing Advised to refrain from sexual intercourse until following up with [facility] for further STD testing Advised to follow up with PCP in 1-2 days Patient verbalized understanding and agreeable with current plan of care Advised to return to ER immediately if symptoms worsen Time of 1ST Reevaluation: 19:12 Reevaluation 1ST: N/A Patient Education/Counseling: Diagnosis, Treatment, Prognosis, Need For Follow Up Family Education/Counseling: No Family Present Departure 1 Departure Time of Disposition: 19:32 Impression: Primary Impression: Dysuria Additional Impression: Exposure to STD Disposition: 01 HOME / SELF CARE / HOMELESS Condition: Stable e-Prescriptions Acetaminophen (Acetaminophen) 500 Mg Tab 500 MG PO Q4HP, #30 TAB 0 Refills Prov: MARYLIN AREVALO 05/13/24 Discharged With: Self Critical Care Note Critical Care Time?: No Stability Stability form required: No Heart Score Heart Score: Heart Score Response (Comments) Value History N/A 0 EKG N/A 0 Age N/A 0 Risk Factors N/A 0 Troponin N/A 0 Total 0 MARYLIN AREVALO May 13, 2024 19:14
[2024-05-13] MEDS: AZITHROMYCIN 250 MG TAB PO ONE (19:28)
[2024-05-13] MEDS: cefTRIAXone SOD 1,000 MG VL IM ONE (19:28)
[2024-05-13] MEDS ORDERED: ACET500T58 PO (19:44)
[2024-05-13] MEDS: KETOROLAC TROMETH 60MG/2ML VIAL IM ONE (20:22)
[2024-05-13 20:55] VITALS: BP 107/69; PULSE 92; RESP 18; TEMP 98.2; O2SAT 96
[2024-05-15 07:07] LABS: RPR Non Reactive (Non Reactive)
[2024-05-15 18:06] LABS: Chlamydia Trachomatis, NAA Negative (Negative); Neisseria gonorrhoeae, NAA Negative (Negative)
== END 2024-05-13 21:41 | disposition home or self-care (01) ==
LOC: ER 16:29
DX: R30.0 Dysuria (principal); M79.18 Myalgia, other site; E11.9 Type 2 diabetes mellitus without complications; E78.5 Hyperlipidemia, unspecified; I25.10 Atherosclerotic heart disease of native coronary artery without angina pectoris; K21.9 Gastro-esophageal reflux disease without esophagitis; Z20.2 Contact with and (suspected) exposure to infections with a predominantly sexual mode of transmission; Z79.899 Other long term (current) drug therapy
CPT/HCPCS: 81001; 86592; 87491; 87591; 96372; 99284; J0696; J1885

== ENCOUNTER 2024-06-02 13:40 | Inpatient (IN) | payer MEDICAID ==
[~2024-06-02] VITALS: Ht 165.1 cm; Wt 76.1 kg
[~2024-06-02 13:40] MED LIST changes: +ACET500T58 PO
--- NOTE | 2024-06-02 14:18 | ED.PDOC ---
GI ASSESSMENT HPI Comments 53 y.o male with PMH of HIV positive, PreDM, HTN, PUD, presents to the ED for a chief of right sided abdominal pain x 3 weeks associated with spontaneous onset of bilateral flank pain radiating to his back, headache and nausea x 2 weeks. Patient describes abdominal pain as sharp, constant, and has no modifying factors. Flank and back pain described as an aching sensation that is also constant but patient is more concerned of his abdominal pain which he rates a 9/10 on the pain scale. Patient denies any vomiting, fever, chills, diarrhea. Chief Complaint: Abdominal Pain Time Seen by MD: 14:00 Primary Care Provider: UNKNOWN Reviewed Notes: Nurses Notes, Medications, Allergies Allergies: Coded Allergies: NO KNOWN ALLERGIES (Unverified , 09/21/22) Home Meds Active Scripts Acetaminophen (Acetaminophen) 500 Mg Tab, 500 MG PO Q4HP, #30 TAB 0 Refills Prov:MARYLIN AREVALO 05/13/24 Albuterol Sulfate (VENTOLIN MDI) 90 Mcg Ih, 90 MCG IN Q4HP PRN for 30 Days, #1 INH Prov:ANTONIO CASANOVA RESIDENT 03/17/24 Oseltamivir Phosphate (Tamiflu) 75 Mg Cap, 75 MG PO Q12HR for 3 Days, #6 CAP Prov:ANTONIO CASANOVA RESIDENT 03/17/24 Ergocalciferol (VITAMIN D 86242 UNIT) 50,000 [place], [address] UNIT PO Q7D for 90 Days, #12 CAP Prov:ANTONIO CASANOVA RESIDENT 03/17/24 Acetaminophen (Acetaminophen) 325 Mg Tab, 650 MG PO Q6HP PRN for 5 Days, #40 TAB Prov:ANTONIO CASANOVA RESIDENT 03/17/24 Reported Medications Pantoprazole Sodium Sesquihydr (Pantoprazole Sodium) 40 Mg Tab, 1 TAB PO DAILY 03/16/24 Nrecatepu-Pwqtirzkbc-Lcsdyghhp (Symtuza [id number] mg) 1 Tab Tab, 1 TAB PO DAILY 03/16/24 Information Source: Patient Mode of Arrival: Ambulatory Timing: Weeks (3) Duration: Since onset Quality: Sharp Vomitus: None Stool: Normal Severity: Moderate Recent: None Recent Hx of: None Pain Location: RUQ, RLQ Modifying Factors: Nothing Associated sign and symptoms: Nausea, Abdominal Pain Past Medical History PAST MEDICAL HISTORY: DM (pre ), HIV, HTN, PUD Surgical History (Other): perforated ulcer Family History Family History: Family hx of Cancer Social History Smoker: Non-Smoker Alcohol: Denies ETOH Use Drugs: Denies Drug Use Lives In: Home Constitutional: denies: chills, diaphoresis, fatigue, fever, malaise, sweats, weakness, others EENTM: denies: blurred vision, double vision, ear bleeding, ear discharge, ear drainage, ear pain, ear ringing, eye pain, eye redness, hearing loss, mouth pain, mouth swelling, nasal discharge, nose bleeding, nose congestion, nose pain, photophobia, tearing, throat pain, throat swelling, voice changes, others Respiratory: denies: cough, hemoptysis, orthopnea, SOB at rest, shortness of breath, SOB with excertion, stridor, wheezing, others Cardiovascular: denies: chest pain, dizzy spells, diaphoresis, Dyspnea on exertion, edema, irregular heart beat, left arm pain, lightheadedness, palpitati ons, PND, syncope, others Gastrointestinal: reports: abdominal pain; denies: abdomen distended, blood streaked bowels, constipated, diarrhea, dysphagia, difficulty swallowing, hematemesis, melena, nausea, poor appetite, poor fluid intake, rectal bleeding, rectal pain, vomiting, others Genitourinary: reports: flank pain; denies: burning, dysuria, frequency, hematuria, incontinence, penile discharge, penile sore, pain, testicle pain, testicle swelling, urgency, others Neurological: denies: dizziness, fainting, headache, left sided numbness, left sided weakness, numbness, paresthesia, pre-existing deficit, right sided numbness, right sided weakness, seizure, speech problems, tingling, tremors, weakness, others Musculoskeletal: reports: back pain; denies: gout, joint pain, joint swelling, muscle pain, muscle stiffness, neck pain, others Integumetry: denies: bruises, change in color, change in hair/nails, dryness, laceration, lesions, lumps, rash, wounds, others Allergic/Immunocompromised: denies: Difficulty Healing, Frequent Infections, Hives, Itching, others Hematologic/Lymphatic: denies: anemia, blood clots, easy bleeding, easy bruising, swollen glands, others Psychiatric: denies: anxiety, bipolar disorder, depression, hopeless, panic disorder, schizophrenia, sleepless, suicidal, others Physical Exam General Appearance: Moderate Distress HEENT: Normal ENT Inspection, Pharynx Normal, TMs Normal Neck: Full Range of Motion, Non-Tender, Normal, Normal Inspection Respiratory: Chest Non-Tender, Lungs Clear, No Accessory Muscle Use, No Respiratory Distress, Normal Breath Sounds Cardiovascular: No Edema, No JVD, No Murmur, No Gallop, Normal Peripheral Pulses, Regular Rate/Rhythm Breast Exam: Deferred Gastrointestinal: No Organomegaly, No Pulsatile Mass, Normal Bowel Sounds, RLQ, RUQ, Soft, Tenderness Genitalia: Deferred Pelvic: Deferred Rectal: Deferred Extremities: No calf tenderness, Normal capillary refill, Normal inspection, Normal range of motion, Non-tender, No pedal edema Musculoskeletal : Apperance: Normal Neurologic: Alert, business associate II-XII nml as Tested, No Motor Deficits, Normal Affect, Normal Mood, No Sensory Deficits Cerebellar Function: Normal Reflexes: Normal Skin: Dry, Normal Color, Warm Lymphatic: No Adenopathy Was a procedure done? Was a procedure done?: No GI differential Dx Differential Diagnosis: Esophagitis, Gastroenteritis, Pancreatitis, Electrolyte Imbalance, Viral X-Ray, Labs, Meds, VS Vital Signs Date Time Temp Pulse Resp B/P (MAP) Pulse Ox O2 Delivery O2 Flow Rate FiO2 06/02/24 15:08 93 18 97 Room Air* 0 21 06/02/24 15:07 98.4 93 18 111/70 (84) 97 98.4 06/02/24 14:58 93 18 111/70 06/02/24 13:51 98.6 96 18 121/62 (81) 96 Lab Test 06/02/24 15:42 06/02/24 15:14 06/02/24 14:12 Range/Units White Blood Count 8.7 4.4-10.8 10^3/uL Red Blood Count 4.02 L 4.5-5.90 10^6/uL Hemoglobin 14.3 13.5-17.5 g/dL Hematocrit 41.9 41.0-53.0 % Mean Corpuscular Volume 104.3 H 80.0-100.0 fL Mean Corpuscular Hemoglobin 35.7 H 28.0-32.0 pg Mean Corpuscular Hemoglobin Concent 34.2 32.0-36.0 g/dL Red Cell Distribution Width 13.8 11.8-14.3 % Platelet Count 230 140-450 10^3/uL Mean Platelet Volume 8.9 6.9-10.8 fL Neutrophils (%) (Auto) 55.6 37.0-80.0 % Lymphocytes (%) (Auto) 29.7 10.0-50.0 % Monocytes (%) (Auto) 10.7 0.0-12.0 % Eosinophils (%) (Auto) 3.3 0.0-7.0 % Basophils (%) (Auto) 0.7 0.0-2.0 % Neutrophils # (Auto) 4.9 1.6-8.6 10 ^3/uL Lymphocytes # (Auto) 2.6 0.4-5.4 10 ^3/uL Monocytes # (Auto) 0.9 0-1.3 10 ^3/uL Eosinophils # (Auto) 0.3 0-0.8 10 ^3/uL Basophils # (Auto) 0.1 0-0.2 10 ^3/uL Nucleated Red Blood Cells 0.1 % Urine Color Light-yellow Yellow Urine Clarity Clear Clear Urine pH 6.5 5.0-9.0 Urine Specific [place] 1.014 1.001-1.035 Urine Protein Negative Negative Urine Ketones Negative Negative Urine Blood Negative Negative /uL Urine Nitrite Negative Negative Urine Bilirubin Negative Negative Urine Urobilinogen Normal Negative mg/dL Urine Leukocyte Esterase Negative Negative /uL Urine RBC 1 0 - 3 /hpf Urine WBC <1 0 - 3 /hpf Urine Squamous Epithelial Cells None seen <5 /hpf Urine Bacteria None seen None Seen /hpf Urine Glucose Normal Normal mg/dL Sodium Level 141 136-145 mmol/L Potassium Level 4.0 3.5-5.1 mmol/L Chloride Level 108 H 98-107 mmol/L Carbon Dioxide Level 27 20-31 mmol/L Anion Gap 6 5-15 Blood Urea Nitrogen 13 9-23 mg/dL Creatinine 1.12 0.700-1.30 mg/dL Glomerular Filtration Rate Calc 79 >90 mL/min BUN/Creatinine Ratio 11.6 10.0-20.0 Serum Glucose 96 74-106 mg/dL Calcium Level 9.8 8.7-10.4 mg/dL Total Bilirubin 0.5 0.2-1.0 mg/dL Aspartate Amino Transferase (AST) 21 13-40 U/L Alanine Aminotransferase (ALT) 24 7-40 U/L Alkaline Phosphatase 94 46-116 U/L Total Protein 7.2 5.7-8.2 g/dL Albumin 4.5 3.2-4.8 g/dL Lipase 42 12-53 U/L Current Medications Medications (Trade) Dose Ordered Sig/Marly Route Start Time Stop Time Status Last Admin Ondansetron HCl (Zofran) 4 mg ONCE ONCE IV 06/02/24 14:15 06/02/24 14:16 DC 06/02/24 14:57 Morphine Sulfate 4 mg ONCE ONCE IV 06/02/24 14:15 06/02/24 14:16 DC 06/02/24 14:58 Sodium Chloride 500 ml @ 500 mls/hr Q1H ONCE IVB 06/02/24 14:15 06/02/24 15:14 DC 06/02/24 14:53 The CBC is within normal limits The urine tests is negative The patient's chemistry panel is within normal limits The patient was given morphine for the pain and Zofran for the nausea The patient was bolused with normal saline at 500 cc The patient is being admitted to the hospitalist with a diagnosis of intractable abdominal pain The CT scan shows no sign of any abnormalities. The patient was still having persistent abdominal pain Images Reviewed?: Images reviewed and evaluated by me Time of 1ST Reevaluation: 14:09 Reevaluation 1ST: Unchanged Patient Education/Counseling: Diagnosis, Treatment, Prognosis Family Education/Counseling: No Family Present Departure 1 Departure Time of Disposition: 18:56 Impression: Primary Impression: Intractable abdominal pain Additional Impression: Abdominal pain of unknown cause Disposition: ADMITTED INPATIENT Admit to: Med Surg Condition: Fair Critical Care Note Critical Care Time?: No Stability Stability form required: Yes Unstable for transfer: ED Physician Assesment (Clinical assesment) I personally scribed for KALE MARY MD ([email or web address]) on 06/02/24 at 14:18. Electronically submitted by Chelo Gould ([facility]). KALE MARY MD Jun 02, 2024 14:18
--- NOTE | 2024-06-02 14:34 | DVH ---
Exam: CT CT AB PEL WO CON-NO ORAL OR IV History: pain Comparison Study: CT scan of the abdomen pelvis dated 03/15/2024 Technique: Multidetector spiral CT of the abdomen and pelvis was performed from lung bases to pubic s ymphysis. Imaging was performed without intravenous contrast. Coronal and sagittal multiplanar refor mats were obtained from the axial data set by the technologist. Radiation Dose : 1. Abdomen/Pelvis: CTDIvol 7.6 mGy, DLP 422.3 mGy*cm. Findings: Evaluation of vasculature and solid organs is limited due to lack of intravenous contrast use. Lung Bases: Lung bases are clear. Visualized portions of the heart and pericardium are unremarkable. Liver: The liver is normal in size. No focal lesions. Gallbladder and Biliary Tree: The gallbladder is contracted. No intrahepatic or extrahepatic biliary ductal dilatation. Spleen: Unremarkable Pancreas: The pancreas is grossly unremarkable. Adrenal Glands: Unremarkable Kidneys: Punctate nonobstructive right nephrolithiasis. No hydronephrosis. GI tract: The stomach is grossly normal in appearance. No evidence of small bowel wall thickening or abnormal dilatation to suggest bowel obstruction. The colon is unremarkable. The appendix is visual ized and is normal in caliber. There is a 4 mm appendicolith. Peritoneum/mesentery/retroperitoneum. No evidence of free intraperitoneal air. No ascites. No evidenc e of suspicious lymphadenopathy. Abdominal Wall: Unremarkable. Vasculature: The visualized abdominal aorta is normal in size and caliber. Evaluation of abdominal a nd pelvic vessels is limited due to lack of intravenous contrast. Urinary Bladder: Grossly unremarkable for degree of distention. Pelvic Organs: Unremarkable Musculoskeletal: No aggressive focal bony lesions, acute fractures or dislocation. IMPRESSION: 1. No acute abdominal or pelvic findings.
[2024-06-02 14:53] LABS: Alanine Aminotransferase 24 U/L (7-40); Albumin 4.5 g/dL (3.2-4.8); Alkaline Phosphatase 94 U/L (46-116); Anion Gap 6 (5-15); Aspartate Aminotransferase 21 U/L (13-40); BUN/Creatinine Ratio 11.6 (10.0-20.0); Bilirubin, Total 0.5 mg/dL (0.2-1.0); Blood Urea Nitrogen 13 mg/dL (9-23); Calcium 9.8 mg/dL (8.7-10.4); Carbon Dioxide 27 mmol/L (20-31); Glucose 96 mg/dL (74-106); Sodium 141 mmol/L (136-145); Total Protein 7.2 g/dL (5.7-8.2)
[2024-06-02] MEDS: SODIUM CHLORIDE 0.9% 500 ML IVB ONE (14:53)
[2024-06-02 14:56] LABS: Chloride 108 mmol/L (98-107)
[2024-06-02] MEDS: ONDANSETRON HCL 4 MG/2 ML VIAL IV ONE (14:57)
[2024-06-02] MEDS: MORPHINE SULFATE 4 MG/ML SYR/VIAL IV ONE (14:58)
[2024-06-02 15:07] LABS: Lipase 42 U/L (12-53)
[2024-06-02 15:08] VITALS: PULSE 93; RESP 18; O2SAT 97
[2024-06-02 15:16] LABS: Urine Bacteria None Seen /hpf (None Seen)
[2024-06-02 15:29] LABS: Urine Blood Negative /uL (Negative); Urine Clarity Clear (Clear); Urine Color Light-Yellow (Yellow); Urine Protein, UAD Negative (Negative); Urine Specific Gravity 1.014 (1.001-1.035); Urine Squamous Epithelial Cell None Seen /hpf (<5); Urine Urobilinogen Normal (Negative); Urine WBC <1 /hpf (0 - 3); Urine pH 6.5 (5.0-9.0)
[2024-06-02 16:20] LABS: Eosinophils # (auto) 0.3 10 ^3/uL (0-0.8); Lymphocytes # (auto) 2.6 10 ^3/uL (0.4-5.4)
[2024-06-02 16:21] LABS: Basophils # (auto) 0.1 10 ^3/uL (0-0.2); Basophils % (auto) 0.7 % (0.0-2.0); Eosinophils % (auto) 3.3 % (0.0-7.0); Hematocrit 41.9 % (41.0-53.0); Hemoglobin 14.3 g/dL (13.5-17.5); Lymphocytes % (auto) 29.7 % (10.0-50.0); Mean Corpuscular Hemoglobin 35.7 pg (28.0-32.0); Mean Corpuscular Hgb Conc. 34.2 g/dL (32.0-36.0); Mean Corpuscular Volume 104.3 fL (80.0-100.0); Monocytes # (auto) 0.9 10 ^3/uL (0-1.3); Monocytes % (auto) 10.7 % (0.0-12.0); Neutrophils # (auto) 4.9 10 ^3/uL (1.6-8.6); Neutrophils % (auto) 55.6 % (37.0-80.0); Nucleated Red Blood Cells % 0.1 %; Platelet Count (auto) 230 10^3/uL (140-450); Red Blood Cells 4.02 10^6/uL (4.5-5.90); Red Cell Distribution Width 13.8 % (11.8-14.3); White Blood Cell 8.7 10^3/uL (4.4-10.8)
[2024-06-02] MEDS: ONDANSETRON HCL 4 MG/2 ML VIAL IV PRN (22:52)
[2024-06-02] MEDS: FAMOTIDINE (10MG/ML) 2ML VL IV ONE (22:52)
[2024-06-02] MEDS: MORPHINE SULFATE INJ 2 MG/ml SYRG IV PRN (22:53)
--- NOTE | 2024-06-02 23:55 | DVH ---
US KIDNEY HISTORY: kidney stones COMPARISON: None TECHNIQUE: Transverse and longitudinal grayscale and color Doppler images were obtained of the kidney s and bladder. FINDINGS: Right kidney: Size: 10.1 cm Cortical thickness: Normal Echogenicity: Normal Stones: None Masses: None Hydronephrosis: None Ureters: Not well visualized. Other: None Left kidney: Size: 11.8 cm Cortical thickness: Normal Echogenicity: Normal Stones: None Masses: None Hydronephrosis: None Ureters: Not well visualized. Other: None Bladder: Prevoid urinary bladder volume of 700 mL. Other: None. IMPRESSION: No sonographic evidence of acute renal abnormalities. Distended urinary bladder. No postvoid images were available.
--- NOTE | 2024-06-03 00:10 | DVHHPRES ---
History of Present Illness Resident Creating Document: JHJAMILAHVERNON RESIDENT History of Present Illness Patient is a 53 year old male with a past medical history are as described below came to ED with the chief complaint of intermittent intermittent right and left flank for the past 3 weeks. patient reported that since the last 3 weeks he has been having episodes of right and left flank pain, the patient described it as "my liver and kidnes hurt". Since yesterday the patient reports cirrhosis right flank pain has got worse and the pain is constant with intermittent sharp episodes during which the patient was burning pain sensation and is face gets red. Patient denies dysuria, hematuria, no history of kidney stones, no history of gallstones. Patient also has intermittent heartburn and reflux but denied nausea, vomiting, diarrhea, hematochezia, and other acute symptoms. Past medical history: HTN, gastric or intestinal ulcer, COPD, GERD, HIV Past surgical history: Exploratory laparotomy likely for perforated peptic ulcer Social history: Lives at home, denies smoking, alcohol and other drug abuse Home medications: aspirin, enalapril 10 mg, Symtuza 1 tablet daily Review of Systems Review of Systems At the time of examination patient reports headache which is [id number] in severity and diffuse. Complains of intermittent pain in the right flank which radiates to his back. Denies nausea, vomiting, diarrhea, dysuria Allergies: Coded Allergies: NO KNOWN ALLERGIES (Unverified , 09/21/22) Medications Current Medications Medications Dose Ordered Sig/Marly Route Start Time Stop Time Status Last Admin Dose Admin Ondansetron HCl 4 mg Q4HPRN PRN IV 06/02/24 22:15 06/02/24 22:52 4 MG Famotidine 20 mg DAILY IV 06/03/24 10:00 Morphine Sulfate 2 mg Q4HPRN PRN IV 06/02/24 22:15 06/02/24 22:53 2 MG Acetaminophen 650 mg Q4HP PRN PO 06/02/24 22:15 Patient Own Medication 1 DAILY PO 06/03/24 10:00 UNV Enalapril Maleate 10 mg DAILY PO 06/03/24 10:00 Exam Vital Signs Vital Signs Date Time Temp Pulse Resp B/P (MAP) Pulse Ox O2 Delivery O2 Flow Rate FiO2 06/02/24 23:30 84 19 110/60 06/02/24 22:54 97.9 96 97.9 06/02/24 15:08 Room Air* 0 21 Exam Physical Examination Constitutional: Patient was alert and to time, place and person and does not appear to be in any acute distress Gen - no pallor, no icterus, no cyanosis, no clubbing, no LAD, no edema . Skin - Patients skin is warm and dry. HEENT - normocephalic, atraumatic, dry mucous membranes. Neck - full ROM, no LAD Pulmonary - B/L vesicular breath sounds. no crackles , no wheezing cardiovascular - normal S1,S2 heard. no murmurs heard. GI - soft abdomen without tenderness to palpation . no hepatospleenomegaly. Bowel sounds normoactive Neurological - Bilateral upper extremity strength 5/5, bilateral lower extremity strength 5/5, no facial droop, normal speech, no tremor, no sensory deficiets. Labs/Xrays Labs Test 06/02/24 22:34 06/02/24 15:42 06/02/24 15:14 06/02/24 14:12 Range/Units Lipase 40 12-53 U/L White Blood Count 8.7 4.4-10.8 10^3/uL Red Blood Count 4.02 L 4.5-5.90 10^6/uL Hemoglobin 14.3 13.5-17.5 g/dL Hematocrit 41.9 41.0-53.0 % Mean Corpuscular Volume 104.3 H 80.0-100.0 fL Mean Corpuscular Hemoglobin 35.7 H 28.0-32.0 pg Mean Corpuscular Hemoglobin Concent 34.2 32.0-36.0 g/dL Red Cell Distribution Width 13.8 11.8-14.3 % Platelet Count 230 140-450 10^3/uL Mean Platelet Volume 8.9 6.9-10.8 fL Neutrophils (%) (Auto) 55.6 37.0-80.0 % Lymphocytes (%) (Auto) 29.7 10.0-50.0 % Monocytes (%) (Auto) 10.7 0.0-12.0 % Eosinophils (%) (Auto) 3.3 0.0-7.0 % Basophils (%) (Auto) 0.7 0.0-2.0 % Neutrophils # (Auto) 4.9 1.6-8.6 10 ^3/uL Lymphocytes # (Auto) 2.6 0.4-5.4 10 ^3/uL Monocytes # (Auto) 0.9 0-1.3 10 ^3/uL Eosinophils # (Auto) 0.3 0-0.8 10 ^3/uL Basophils # (Auto) 0.1 0-0.2 10 ^3/uL Nucleated Red Blood Cells 0.1 % Urine Color Light-yellow Yellow Urine Clarity Clear Clear Urine pH 6.5 5.0-9.0 Urine Specific [place] 1.014 1.001-1.035 Urine Protein Negative Negative Urine Ketones Negative Negative Urine Blood Negative Negative /uL Urine Nitrite Negative Negative Urine Bilirubin Negative Negative Urine Urobilinogen Normal Negative mg/dL Urine Leukocyte Esterase Negative Negative /uL Urine RBC 1 0 - 3 /hpf Urine WBC <1 0 - 3 /hpf Urine Squamous Epithelial Cells None seen <5 /hpf Urine Bacteria None seen None Seen /hpf Urine Glucose Normal Normal mg/dL Sodium Level 141 136-145 mmol/L Potassium Level 4.0 3.5-5.1 mmol/L Chloride Level 108 H 98-107 mmol/L Carbon Dioxide Level 27 20-31 mmol/L Anion Gap 6 5-15 Blood Urea Nitrogen 13 9-23 mg/dL Creatinine 1.12 0.700-1.30 mg/dL Glomerular Filtration Rate Calc 79 >90 mL/min BUN/Creatinine Ratio 11.6 10.0-20.0 Serum Glucose 96 74-106 mg/dL Calcium Level 9.8 8.7-10.4 mg/dL Total Bilirubin 0.5 0.2-1.0 mg/dL Aspartate Amino Transferase (AST) 21 13-40 U/L Alanine Aminotransferase (ALT) 24 7-40 U/L Alkaline Phosphatase 94 46-116 U/L Total Protein 7.2 5.7-8.2 g/dL Albumin 4.5 3.2-4.8 g/dL Assessment/Plan Assessment/Plan Acute abdominal pain Nephrolithiasis ?Right ureteric stone - CT abdomen pelvis without contrast shows Punctate nonobstructive right nephrolithiasis - Renal ultrasound shows No sonographic evidence of acute renal abnormalities. Distended urinary bladder - urinalysis shows no UTI - Lipase WNL - on IV fluids - Zofran p.r.n. for nausea, vomiting - famotidine 20 mg IV qd on full liquid diet - acetaminophen and morphine for pain control - on full liquid diet HIV positive - continues on Symtuza 1 tab daily H/o hypertension - continued on enalapril at low dose 5 mg Goals of care discussed patient for over 21 minutes. Full code Plan discussed with Dr. Woods Plan discussed with: Patient My Orders Orders - VERNON CASTAÑEDA Procedure Category Date Status Time Admit ADMIT 06/02/24 Transmitted 22:02 Full Liq Diet DIET 06/03/24 Transmitted Breakfast Ondansetron Hcl PHA 06/02/24 In Process (Zofran) 22:15 Famotidine Injection PHA 06/03/24 In Process (Pepcid Injection) 10:00 Morphine Sulfate PHA 06/02/24 In Process Injection 22:15 Acetaminophen Tablet PHA 06/02/24 In Process (Tylenol Tablet) 22:15 Patients Own PHA 06/03/24 Pending Medication 10:00 Enalapril Tablet PHA 06/03/24 In Process (Vasotec Tablet) 10:00 Complete Blood Count LAB 06/03/24 Logged 04:00 Vitamin B12 LAB 06/02/24 In Process 22:02 Folate (Folic Acid) LAB 06/02/24 In Process 22:02 Basic Metabolic Panel LAB 06/03/24 Logged 04:00 Kidney US 06/02/24 Resulted 22:02 Code Status CODE 06/02/24 Transmitted 22:12 Date of Service: Jun 02, 2024 Billing Provider: BENITO WOODS MD Common Visit Codes: [id number] INP/OBS CARE (HIGH) VERNON CASTAÑEDA RESIDENT Jun 03, 2024 00:10 BENITO WOODS MD Jun 03, 2024 20:12
[2024-06-03 00:35] VITALS: PULSE 57; RESP 18; O2SAT 100
[2024-06-03] MEDS: ACETAMINOPHEN 325 MG TAB PO PRN (04:43)
[2024-06-03 06:48] LABS: Anion Gap 8 (5-15); Calcium 9.4 mg/dL (8.7-10.4); Carbon Dioxide 26 mmol/L (20-31); Chloride 106 mmol/L (98-107); Potassium 3.8 mmol/L (3.5-5.1); Sodium 140 mmol/L (136-145)
[2024-06-03 06:54] LABS: BUN/Creatinine Ratio 11.9 (10.0-20.0); Blood Urea Nitrogen 10 mg/dL (9-23); Glucose 96 mg/dL (74-106)
[2024-06-03 07:29] LABS: Basophils # (auto) 0 10 ^3/uL (0-0.2); Basophils % (auto) 0.5 % (0.0-2.0); Eosinophils # (auto) 0.3 10 ^3/uL (0-0.8); Eosinophils % (auto) 4.1 % (0.0-7.0); Hematocrit 41.2 % (41.0-53.0); Hemoglobin 13.8 g/dL (13.5-17.5); Lymphocytes # (auto) 2.4 10 ^3/uL (0.4-5.4); Mean Corpuscular Hemoglobin 34.8 pg (28.0-32.0); Mean Corpuscular Hgb Conc. 33.6 g/dL (32.0-36.0); Mean Corpuscular Volume 103.7 fL (80.0-100.0); Monocytes # (auto) 0.7 10 ^3/uL (0-1.3); Monocytes % (auto) 9.9 % (0.0-12.0); Neutrophils # (auto) 3.5 10 ^3/uL (1.6-8.6); Neutrophils % (auto) 50.5 % (37.0-80.0); Nucleated Red Blood Cells % 0.1 %; Platelet Count (auto) 211 10^3/uL (140-450); Red Blood Cells 3.97 10^6/uL (4.5-5.90); Red Cell Distribution Width 13.7 % (11.8-14.3)
[2024-06-03] MEDS: ENALAPRIL MALEATE 10 MG TAB PO SCH (08:47)
[2024-06-03 08:57] LABS: Rapid Influenza A Negative (Negative); Rapid Influenza B Negative (Negative)
[2024-06-03 09:00] VITALS: BP 96/62; PULSE 64; RESP 18; TEMP 97.7; O2SAT 95
[2024-06-03 09:03] LABS: COVID19 ANTIGEN SOFIA FIA NEGATIVE (NEGATIVE)
[2024-06-03] MEDS: SYMTUZA PO SCH (09:41)
[2024-06-03] MEDS ORDERED: ENALAPRIL MALEATE 10 MG TAB PO SCH (10:00)
[2024-06-03] MEDS: FAMOTIDINE (10MG/ML) 2ML VL IV SCH (10:59)
[2024-06-03 11:20] LABS: Folate (Folic Acid) 18.28 ng/mL (>5.38)
[2024-06-03] MEDS ORDERED: ENAL5TAB22 PO (18:04)
[2024-06-03] MEDS ORDERED: ASPI1TAB20 PO (18:05)
[2024-06-03] MEDS ORDERED: CARV6.2551 PO (18:08)
[2024-06-03 18:20] VITALS: BP 118/71; PULSE 90; RESP 21; TEMP 97.5; O2SAT 95
[2024-06-03] MEDS ORDERED: CARI250T PO (18:39)
--- NOTE | 2024-06-03 18:42 | DVHDS2 ---
Discharge Summary Date of Admission Jun 02, 2024 at 22:02 Date of Discharge: Jun 03, 2024 Admitting Diagnosis Acute abdominal pain Labs/Diagnostic Data: Laboratory Results Test 06/03/24 10:45 06/03/24 08:05 06/03/24 05:16 06/02/24 22:34 Lactic Acid Level 1.5 mmol/L (0.4-2.0) Influenza Type A Antigen Negative (Negative) Influenza Type B Antigen Negative (Negative) SARS-CoV-2 Antigen (Rapid) Negative (NEGATIVE) White Blood Count 7.0 10^3/uL (4.4-10.8) Red Blood Count 3.97 10^6/uL (4.5-5.90) Hemoglobin 13.8 g/dL (13.5-17.5) Hematocrit 41.2 % (41.0-53.0) Mean Corpuscular Volume 103.7 fL (80.0-100.0) Mean Corpuscular Hemoglobin 34.8 pg (28.0-32.0) Mean Corpuscular Hemoglobin Concent 33.6 g/dL (32.0-36.0) Red Cell Distribution Width 13.7 % (11.8-14.3) Platelet Count 211 10^3/uL (140-450) Mean Platelet Volume 9.4 fL (6.9-10.8) Neutrophils (%) (Auto) 50.5 % (37.0-80.0) Lymphocytes (%) (Auto) 35.0 % (10.0-50.0) Monocytes (%) (Auto) 9.9 % (0.0-12.0) Eosinophils (%) (Auto) 4.1 % (0.0-7.0) Basophils (%) (Auto) 0.5 % (0.0-2.0) Neutrophils # (Auto) 3.5 10 ^3/uL (1.6-8.6) Lymphocytes # (Auto) 2.4 10 ^3/uL (0.4-5.4) Monocytes # (Auto) 0.7 10 ^3/uL (0-1.3) Eosinophils # (Auto) 0.3 10 ^3/uL (0-0.8) Basophils # (Auto) 0 10 ^3/uL (0-0.2) Nucleated Red Blood Cells 0.1 % Sodium Level 140 mmol/L (136-145) Potassium Level 3.8 mmol/L (3.5-5.1) Chloride Level 106 mmol/L (98-107) Carbon Dioxide Level 26 mmol/L (20-31) Anion Gap 8 (5-15) Blood Urea Nitrogen 10 mg/dL (9-23) Creatinine 0.84 mg/dL (0.700-1.30) Glomerular Filtration Rate Calc 104 mL/min (>90) BUN/Creatinine Ratio 11.9 (10.0-20.0) Serum Glucose 96 mg/dL (74-106) Calcium Level 9.4 mg/dL (8.7-10.4) Lipase 40 U/L (12-53) Test 06/02/24 15:14 06/02/24 14:12 Urine Color Light-yellow (Yellow) Urine Clarity Clear (Clear) Urine pH 6.5 (5.0-9.0) Urine Specific [place] 1.014 (1.001-1.035) Urine Protein Negative (Negative) Urine Ketones Negative (Negative) Urine Blood Negative /uL (Negative) Urine Nitrite Negative (Negative) Urine Bilirubin Negative (Negative) Urine Urobilinogen Normal mg/dL (Negative) Urine Leukocyte Esterase Negative /uL (Negative) Urine RBC 1 /hpf (0 - 3) Urine WBC <1 /hpf (0 - 3) Urine Squamous Epithelial Cells None seen /hpf (<5) Urine Bacteria None seen /hpf (None Seen) Urine Glucose Normal mg/dL (Normal) Total Bilirubin 0.5 mg/dL (0.2-1.0) Aspartate Amino Transferase (AST) 21 U/L (13-40) Alanine Aminotransferase (ALT) 24 U/L (7-40) Alkaline Phosphatase 94 U/L (46-116) Total Protein 7.2 g/dL (5.7-8.2) Albumin 4.5 g/dL (3.2-4.8) Vitamin B12 Level 449 pg/mL (211-911) Folic Acid 18.28 ng/mL (>5.38) Other Laboratory Tests 06/03/24 05:16 Brief Hx & Hospital Course: History of Present Illness Patient is a 53 year old male with a past medical history are as described below came to ED with the chief complaint of intermittent intermittent right and left flank for the past 3 weeks. patient reported that since the last 3 weeks he has been having episodes of right and left flank pain, the patient described it as "my liver and kidnes hurt". Since yesterday the patient reports cirrhosis right flank pain has got worse and the pain is constant with intermittent sharp episodes during which the patient was burning pain sensation and is face gets red. Patient denies dysuria, hematuria, no history of kidney stones, no history of gallstones. Patient also has intermittent heartburn and reflux but denied nausea, vomiting, diarrhea, hematochezia, and other acute symptoms. Course of hospitalization: Patient was CT scan of the abdomen and pelvis which was negative for any acute pathology. Patient had renal ultrasound which was negative for any acute pathology. Patient's labs are essentially unremarkable. Long discussion was made with the patient regarding his symptoms. At this time he will be discharged home with muscle relaxer for possible musculoskeletal injury of his lower back. Patient will follow up with the discharge Clinic in one week. He is to continue all previous home medications. Physical exam General: Alert and Oriented x3. No acute distress. Well-nourished. Eyes: EOMI. Anicteric. HENT: Moist mucous membranes. Lungs: Clear to auscultation bilaterally. No accessory muscle use. Cardiovascular: Regular rate and rhythm. No murmur. No JVD. Abdomen: Soft, non-tender and non-distended. No palpable masses. Extremities: No edema. Non-tender. Skin: No rashes or lesions. Warm. Neurologic: No focal neurological deficits. CN II-XII grossly intact, but not individually tested. Psychiatric: Cooperative. Appropriate mood and affect. Total time spent with patient discussing and formulating plan of care: 35 minutes. This medical document was created using an electronic medical record system with [employer] dictation system. Although this document has been carefully reviewed, there may still be some phonetic and typographical errors. These areas are purely typographical due to imperfections of the software programs, and do not reflect any compromise in the patient's medical care. Condition at Discharge: Fair Final Diagnosis/Problems List Back pain Secondary Diagnosis: Peptic ulcer disease COPD HIV Discharge Disposition: Home Discharge Instruct/Medications Diet: Regular Activity: No Restrictions, As Tolerated Follow Up/Referral: Discharge Clinic in one week Medications: Soma 250 mg q.12 hours as needed for back pain 36 Discharge Statement: "Patient was advised to return to the ER or call 911 if any headaches, dizziness, shortness of breath, chest pain, abdominal pain, bleeding, fevers, or worsening of medical condition. Patient was counseled about treatment plan, medications, possible side effects, patientverbalized understanding. All questions were answered to the best of my ability. This discharge took greater then 30 minutes in planning, reviewing documentation, counseling the patient, and discussing with other team members." ASSESSMENT ASSESSMENT Assessment Back pain Date of Service: Jun 03, 2024 Billing Provider: JESSICA GARCIA NP Common Visit Codes: [id number] INP/OBS CARE(HIGH) JESSICA GARCIA NP Jun 03, 2024 18:42
[2024-06-03 19:40] VITALS: BP 118/71; PULSE 90; RESP 21; TEMP 97.5; O2SAT 95
== END 2024-06-03 19:58 | disposition home or self-care (01) | DRG 347 ==
LOC: ER 13:41 → OVERFLOW 22:02
PROVIDERS: ATTEND Nurse Practitioner Acute Care
DX: S39.82XA Other specified injuries of lower back, initial encounter (principal); K74.60 Unspecified cirrhosis of liver; I10 Essential (primary) hypertension; K27.9 Peptic ulcer, site unspecified, unspecified as acute or chronic, without hemorrhage or perforation; J44.9 Chronic obstructive pulmonary disease, unspecified; K21.9 Gastro-esophageal reflux disease without esophagitis; N20.0 Calculus of kidney; Z79.899 Other long term (current) drug therapy
CPT/HCPCS: 36415; 74176; 76775; 80048; 80053; 81001; 82607; 82746; 83605; 83690; 85025; 87426; 87804; G0378; J2405; J3490

== ENCOUNTER 2024-08-02 09:18 | Inpatient (IN) | payer MEDICAID ==
[~2024-08-02] VITALS: Ht 167.6 cm; Wt 76.7 kg
[~2024-08-02 09:18] MED LIST changes: +ASPI1TAB20 PO; +CARI250T PO; +CARV6.2551 PO; +ENAL5TAB22 PO
[2024-08-02 10:02] LABS: Urine Bacteria None Seen /hpf (None Seen)
[2024-08-02 10:25] LABS: Urine Blood Negative /uL (Negative); Urine Clarity Clear (Clear); Urine Color Light-Yellow (Yellow); Urine Protein, UAD Negative (Negative); Urine Specific Gravity 1.022 (1.001-1.035); Urine Squamous Epithelial Cell None Seen /hpf (<5); Urine Urobilinogen Normal (Negative); Urine WBC < 1 /HPF (0-3)
[2024-08-02 10:30] LABS: Basophils # (auto) 0.1 10 ^3/uL (0-0.2); Eosinophils # (auto) 0.3 10 ^3/uL (0-0.8); Lymphocytes # (auto) 2.8 10 ^3/uL (0.4-5.4)
[2024-08-02 10:33] LABS: Basophils % (auto) 0.6 % (0.0-2.0); Eosinophils % (auto) 3.9 % (0.0-7.0); Hematocrit 46.3 % (41.0-53.0); Hemoglobin 15.5 g/dL (13.5-17.5); Lymphocytes % (auto) 31.6 % (10.0-50.0); Mean Corpuscular Hemoglobin 34.7 pg (28.0-32.0); Mean Corpuscular Hgb Conc. 33.5 g/dL (32.0-36.0); Mean Corpuscular Volume 103.4 fL (80.0-100.0); Monocytes # (auto) 0.9 10 ^3/uL (0-1.3); Monocytes % (auto) 9.8 % (0.0-12.0); Neutrophils # (auto) 4.7 10 ^3/uL (1.6-8.6); Neutrophils % (auto) 54.1 % (37.0-80.0); Nucleated Red Blood Cells % 0.1 %; Platelet Count (auto) 145 10^3/uL (140-450); Red Blood Cells 4.48 10^6/uL (4.5-5.90); Red Cell Distribution Width 13.6 % (11.8-14.3); White Blood Cell 8.8 10^3/uL (4.4-10.8)
[2024-08-02 10:49] LABS: Potassium 3.9 mmol/L (3.5-5.1); Sodium 140 mmol/L (136-145)
[2024-08-02 10:50] LABS: Anion Gap 5 (5-15); Calcium 9.4 mg/dL (8.7-10.4); Carbon Dioxide 25 mmol/L (20-31)
[2024-08-02 10:53] LABS: Chloride 110 mmol/L (98-107)
[2024-08-02 10:55] LABS: Blood Urea Nitrogen 14 mg/dL (9-23); Glucose 100 mg/dL (74-106)
--- NOTE | 2024-08-02 11:19 | ED.PDOC ---
General HPI Comments 53 year old male presents to the ED with chief complaint of suprapubic/groin pain. Patient reports that he has had a small pin point skin jocelyn directly above his penis for the past few years, however, in the last week that small pin point jocelyn became swollen and has started to have associated pain that radiates throughout the suprapubic region. Patient relays that he also has had mild dysuria due to the pain of the mass. Patient states he is worried for cancer as a friend of his of something very similar to what he is experiencing. Patient notes he is HIV positive and takes all of his medication. Patient denies any N/V/D, hematuria, dizziness, chills, or any other symptoms. Chief Complaint: Pelvic Pain Time Seen by MD: 11:13 Primary Care Provider: UNKNOWN Reviewed notes: Nurses Notes, Medications, Allergies Allergies: Coded Allergies: NO KNOWN ALLERGIES (Unverified , 09/21/22) Home Meds Active Scripts Carisoprodol (Soma) 250 Mg Tab, 250 MG PO Q12HP PRN for 7 Days, #14 TAB Prov:JESSICA GARCIA GARAGEMAN 06/03/24 Acetaminophen (Acetaminophen) 500 Mg Tab, 500 MG PO Q4HP, #30 TAB 0 Refills Prov:MARYLIN AREVALO 05/13/24 Albuterol Sulfate (VENTOLIN MDI) 90 Mcg Ih, 90 MCG IN Q4HP PRN for 30 Days, #1 INH Prov:ANTONIO CASANOVA RESIDENT 03/17/24 Oseltamivir Phosphate (Tamiflu) 75 Mg Cap, 75 MG PO Q12HR for 3 Days, #6 CAP Prov:ANTONIO CASANOVA RESIDENT 03/17/24 Ergocalciferol (VITAMIN D 93863 UNIT) 50,000 [place], [address] UNIT PO Q7D for 90 Days, #12 CAP Prov:ANTONIO CASANOVA RESIDENT 03/17/24 Acetaminophen (Acetaminophen) 325 Mg Tab, 650 MG PO Q6HP PRN for 5 Days, #40 TAB Prov:ANTONIO CASANOVA RESIDENT 03/17/24 Reported Medications Carvedilol (Carvedilol) 6.25 Mg Tab, 1 TAB PO DAILY, #180 TAB 1 Refill 06/03/24 Aspirin (Aspir-81) 81 Mg Tab, 1 TAB PO DAILY, #30 TAB 5 Refills 06/03/24 Enalapril Maleate (Enalapril Maleate) 5 Mg Tab, 2 TAB PO DAILY, #30 TAB 5 Refills 06/03/24 Pantoprazole Sodium Sesquihydr (Pantoprazole Sodium) 40 Mg Tab, 1 TAB PO DAILY 03/16/24 Qazgeoxch-Fabbeajggd-Bgddcdcxl (Symtuza [id number] mg) 1 Tab Tab, 1 TAB PO DAILY 03/16/24 Information Source: Patient Mode of Arrival: Ambulatory Severity: Moderate Timing: Weeks Duration: Since onset Prehospital treatment: None Onset: Spontaneous Symptoms: Dysuria History of: None Penile discharge: None Modifying factors: None associated signs and symptoms: Abdominal Pain Past Medical History PAST MEDICAL HISTORY: DM, HIV, HTN, PUD Surgical History: Denies all surgeries Family History Family History: Family hx of Cancer Social History Smoker: Non-Smoker Alcohol: Denies ETOH Use Drugs: Denies Drug Use Lives In: Home Constitutional: denies: chills, diaphoresis, fatigue, fever, malaise, sweats, weakness, others EENTM: denies: blurred vision, double vision, ear bleeding, ear discharge, ear drainage, ear pain, ear ringing, eye pain, eye redness, hearing loss, mouth pain, mouth swelling, nasal discharge, nose bleeding, nose congestion, nose pain, photophobia, tearing, throat pain, throat swelling, voice changes, others Respiratory: denies: cough, hemoptysis, orthopnea, SOB at rest, shortness of breath, SOB with excertion, stridor, wheezing, others Cardiovascular: denies: chest pain, dizzy spells, diaphoresis, Dyspnea on exertion, edema, irregular heart beat, left arm pain, lightheadedness, palpitations, PND, syncope, others Gastrointestinal: reports: abdominal pain; denies: abdomen distended, blood streaked bowels, constipated, diarrhea, dysphagia, difficulty swallowing, hematemesis, melena, nausea, poor appetite, poor fluid intake, rectal bleeding, rectal pain, vomiting, others Genitourinary: reports: dysuria, pain; denies: burning, flank pain, frequency, hematuria, incontinence, penile discharge, penile sore, testicle pain, testicle swelling, urgency, others Neurological: denies: dizziness, fainting, headache, left sided numbness, left sided weakness, numbness, paresthesia, pre-existing deficit, right sided numbness, right sided weakness, seizure, speech problems, tingling, tremors, weakness, others Musculoskeletal: denies: back pain, gout, joint pain, joint swelling, muscle pain, muscle stiffness, neck pain, others Integumetry: denies: bruises, change in color, change in hair/nails, dryness, laceration, lesions, lumps, rash, wounds, others Allergic/Immunocompromised: denies: Difficulty Healing, Frequent Infections, Hives, Itching, others Hematologic/Lymphatic: denies: anemia, blood clots, easy bleeding, easy bruising, swollen glands, others Endocrine: denies: excessive hunger, excessive sweating, excessive thirst, excessive urination, flushing, intolerance to cold, intolerance to heat, unexplained weight gain, unexplained weight loss, others Psychiatric: denies: anxiety, bipolar disorder, depression, hopeless, panic disorder, schizophrenia, sleepless, suicidal, others All Other Systems: Reviewed and Negative Physical Exam General Appearance: No Apparent Distress, Normal HEENT: Normal ENT Inspection, Pharynx Normal, TMs Normal Neck: Full Range of Motion, Non-Tender, Normal, Normal Inspection Respiratory: Chest Non-Tender, Lungs Clear, No Accessory Muscle Use, No Respiratory Distress, Normal Breath Sounds Cardiovascular: No Edema, No JVD, No Murmur, No Gallop, Normal Peripheral Pulses, Regular Rate/Rhythm Breast Exam: Deferred Gastrointestinal: No Organomegaly, Non Tender, No Pulsatile Mass, Normal Bowel Sounds, Soft Genitalia: Other (Small tender pustule at the base of the penis.) Pelvic: Deferred Rectal: Deferred Extremities: No calf tenderness, Normal capillary refill, Normal inspection, Normal range of motion, Non-tender, No pedal edema Musculoskeletal : Apperance: Normal Neurologic: Alert, retail wireless sales representative II-XII nml as Tested, No Motor Deficits, Normal Affect, Normal Mood, No Sensory Deficits Cerebellar Function: Normal Reflexes: Normal Skin: Dry, Normal Color, Warm Lymphatic: No Adenopathy Was a procedure done? Was a procedure done?: No Differential Diagnosis Kidney stone (Female): N/A Kidney stone (Male): N/A Penile/Scrotal: Prostatitis, STD, UTI, Urolithiasis, Urinary Retention Urinary Problem (Male): Bladder Outlet, Prostatitis, Urethritis, UTI Urinary Problem (Female): N/A X-Ray, Labs, Meds, VS Vital Signs Date Time Temp Pulse Resp B/P (MAP) Pulse Ox O2 Delivery O2 Flow Rate FiO2 08/02/24 13:02 74 18 95 Room Air 08/02/24 13:02 98.2 74 18 112/82 (92) 95 98.2 08/02/24 09:18 99.0 87 16 114/84 (94) 96 08/02/24 09:18 Room Air* 0 21 Lab Test 08/02/24 10:05 08/02/24 09:28 Range/Units White Blood Count 8.8 4.4-10.8 10^3/uL Red Blood Count 4.48 L 4.5-5.90 10^6/uL Hemoglobin 15.5 13.5-17.5 g/dL Hematocrit 46.3 41.0-53.0 % Mean Corpuscular Volume 103.4 H 80.0-100.0 fL Mean Corpuscular Hemoglobin 34.7 H 28.0-32.0 pg Mean Corpuscular Hemoglobin Concent 33.5 32.0-36.0 g/dL Red Cell Distribution Width 13.6 11.8-14.3 % Platelet Count 145 140-450 10^3/uL Mean Platelet Volume 10.0 6.9-10.8 fL Neutrophils (%) (Auto) 54.1 37.0-80.0 % Lymphocytes (%) (Auto) 31.6 10.0-50.0 % Monocytes (%) (Auto) 9.8 0.0-12.0 % Eosinophils (%) (Auto) 3.9 0.0-7.0 % Basophils (%) (Auto) 0.6 0.0-2.0 % Neutrophils # (Auto) 4.7 1.6-8.6 10 ^3/uL Lymphocytes # (Auto) 2.8 0.4-5.4 10 ^3/uL Monocytes # (Auto) 0.9 0-1.3 10 ^3/uL Eosinophils # (Auto) 0.3 0-0.8 10 ^3/uL Basophils # (Auto) 0.1 0-0.2 10 ^3/uL Nucleated Red Blood Cells 0.1 % Sodium Level 140 136-145 mmol/L Potassium Level 3.9 3.5-5.1 mmol/L Chloride Level 110 H 98-107 mmol/L Carbon Dioxide Level 25 20-31 mmol/L Anion Gap 5 5-15 Blood Urea Nitrogen 14 9-23 mg/dL Creatinine 1.08 0.700-1.30 mg/dL Glomerular Filtration Rate Calc 82 >90 mL/min BUN/Creatinine Ratio 13.0 10.0-20.0 Serum Glucose 100 74-106 mg/dL Calcium Level 9.4 8.7-10.4 mg/dL Urine Color Light-yellow Yellow Urine Clarity Clear Clear Urine pH 7.0 5.0-9.0 Urine Specific [place] 1.022 1.001-1.035 Urine Protein Negative Negative Urine Ketones Negative Negative Urine Blood Negative Negative /uL Urine Nitrite Negative Negative Urine Bilirubin Negative Negative Urine Urobilinogen Normal Negative mg/dL Urine Leukocyte Esterase Negative Negative /uL Urine RBC 1 0 - 3 /hpf Urine Microscopic WBC < 1 0-3 /HPF Urine Squamous Epithelial Cells None seen <5 /hpf Urine Bacteria None seen None Seen /hpf Urine Glucose Normal Normal mg/dL Chlamydia trachomatis (GREG) Pending Neisseria gonorrhoeae (GREG) Pending CT Abd/Pel: FINDINGS: Theliver, gallbladder, pancreas, kidneys, adrenal glands, and spleen appear within normal limits. There is no evidence of abdominal lymphadenopathy. There is no free fluid or free air. The stomach grossly appears unremarkable. The small and large bowel loops demonstrate normal caliber and appear within normal limits. A normal appearing appendix is seen in the right lower quadrant abdomen. . The abdominal aorta and IVC appear within normal limits. The bladder appears within normal limits the degree of distention. Pelvic organs is unremarkable. There is no evidence of a pelvic mass or lymphadenopathy. There is no free fluid collection. Lung bases are clear. There is no acute osseous abnormality. IMPRESSION: 1. There is no acute process in the abdomen and pelvis.. Images Reviewed?: Images reviewed and evaluated by me Time of 1ST Reevaluation: 12:13 Reevaluation 1ST: Unchanged Patient Education/Counseling: Diagnosis, Treatment Family Education/Counseling: No Family Present Additional Information Previous visit documents reviewed: The following tests were ordered, and results were reviewed by me: Additional Information was gathered from interviewing the following independent historians: I reviewed and agreed with the following test results read by other providers: I discussed treatment and results with medical personnel and: patient Departure 1 Departure Time of Disposition: 14:22 (Patient presented with abdominal pain that was concerning for possible appendicits, gastritis, cholecystitis, colitis, gastroenteritis, sbo, or orther possible surgical emergency. Data: 1. I ordered and reviewed the result of at least 3 labs including a CBC, BMP, and Urinalysis. 2. I independently interpreted the following tests: CT Abdoment and Pelvis is concerning for benign abdomen .Risk:This patient has a high risk of morbidity due to further diagnostic testing or treatment and may suffer from an acute abdominal process disorder. Workup reveals strange lower abdominal pain that is intractable associated with penile mass and patient should be admitted for further workup. and possible expert urology consultation. ) Impression: Primary Impression: Lower abdominal pain Additional Impression: Penile abnormality Disposition: ADMITTED INPATIENT Admit to: Med Surg Condition: Serious Critical Care Note Critical Care Time?: No Stability Stability form required: No Heart Score Heart Score: Heart Score Response (Comments) Value History N/A 0 EKG N/A 0 Age N/A 0 Risk Factors N/A 0 Troponin N/A 0 Total 0 I personally scribed for ROGER HOFFMAN MD ([email or web address]) on 08/02/24 at 11:19. Electronically submitted by Sae Menendez ([email or web address]). I personally scribed for ROGER HOFFMAN MD ([email or web address]) on 08/02/24 at 14:02. Electronically submitted by Sae Menendez ([email or web address]). ROGER HOFFMAN MD Aug 02, 2024 11:19
[2024-08-02] MEDS: IOHEXOL 300 MG/ML 100ML BOTTLE IJ ONE (13:23)
--- NOTE | 2024-08-02 13:50 | DVH ---
Exam: CT CT AB PEL WITH IV CON ONLY History: lower abdominal pain TECHNIQUE: A digital director of housing and energy services image was obtained. During the uneventful, intravenous administration of c ontrast material, multislice data acquisition was obtained through the abdomen and pelvis. The data s et was subsequently reconstructed into axial images. Images were reviewed on a work station using a c ombination of axial and multiplanar using a variety of window levels and settings. 100 cc of Omnipaqu e 300 contrast was injected intravenously. All CT scans at this medical facility are performed using dose modulation techniques as appropriate t o a performed exam including the following:Automated exposure control was utilized; adjustment of the MA and/or KV according to patient size; and use of iterative reconstruction technique. Radiation Dose Information: CT Dose: CTDI volume is 11 mGy. Dose-length product is 652 mGy*cm Comparison: None FINDINGS: Theliver, gallbladder, pancreas, kidneys, adrenal glands, and spleen appear within normal limits. There is no evidence of abdominal lymphadenopathy. There is no free fluid or free air. The stomach grossly appears unremarkable. The small and large bowel loops demonstrate normal caliber and appear within normal limits. A normal appearing appendix is seen in the right lower quadrant abdo men. . The abdominal aorta and IVC appear within normal limits. The bladder appears within normal limits the degree of distention. Pelvic organs is unremarkable. Th ere is no evidence of a pelvic mass or lymphadenopathy. There is no free fluid collection. Lung bases are clear. There is no acute osseous abnormality. IMPRESSION: 1. There is no acute process in the abdomen and pelvis.. HS:Y
[2024-08-02] MEDS ORDERED: DEXTROSE (50%) 50ML SYRG IV PRN (20:30)
[2024-08-02] MEDS ORDERED: HYDROcodone-ACET 5/325MG TAB PO PRN (20:30)
[2024-08-02] MEDS ORDERED: ACETAMINOPHEN 500 MG TAB or CAP PO PRN (20:30)
[2024-08-02] MEDS ORDERED: DOCUSATE SOD 100 MG CAP PO PRN (20:30)
[2024-08-02] MEDS ORDERED: ONDANSETRON HCL 4 MG/2 ML VIAL IV PRN (20:30)
[2024-08-02] MEDS ORDERED: hydrALAZINE HCL 20 MG/ML VL IV PRN (20:30)
--- NOTE | 2024-08-02 20:57 | DVHHP2 ---
History of Present Illness Reason for Visit: Lower abdominal pain History of Present Illness The patient is a 53-year-old male with past medical history of HIV, DM, PUD, and hypertension who presented to [facility] ED with complaint of suprapubic pain. Patient reports that he has had a small pin point skin jocelyn di rectly above his penis for the past few years, however, in the last week that small pin point jocelyn became swollen and has started to have associated pain that radiates throughout the suprapubic region, dysuria due to the pain of the mass. Patient was seen and evaluated in the ED, laboratory data shows WBC 8.8, platelets 145, sodium 140, potassium 3.9, BUN 14, creatinine 1.08, GFR 82, glucose 100. Abdomen/pelvis CT showed no acute process. On my assessment, patient denies chest pain, no headache, no dizziness, shortness of breaths, no abdominal pain, no nausea, no vomiting, no fever, no chills. Patient was admitted for further evaluation and medical management. Past Medical History DM, HIV, HTN, PUD Past Surgical History Denies all surgeries Family History Reviewed, noncontributory to the management of this case. Past Social History The patient lives at home, denies smoking, alcohol or illicit drugs abuse. Review of Systems Constitutional: No: Fever, Chills, Sweats, Weakness, Malaise, Other Eyes: No: Pain, Vision change, Conjunctivae inflammation, Eyelid inflammation, Other, Redness ENT: No: Ear pain, Ear discharge, Nose pain, Nose discharge, Nose congestion, Mouth pain, Mouth swelling, Throat pain, Throat swelling, Other Respiratory: No: Cough, Dry, Shortness of breath, SOB with excertion, Wheezing, Hemoptysis, Pleuritic Pain, Sputum, Wheezing, Other Cardiovascular: No: Chest Pain, Palpitations, Orthopnea, Paroxysmal Noc. Dyspnea, Edema, Lt Headedness, Other Gastrointestinal: Abdominal Pain; No: Nausea, Vomiting, Diarrhea, Constipation, Melena, Hematochezia, Other Genitourinary: Dysuria; No Frequency, No Incontinence, No Hematuria, No Retent ion, No Other Musculoskeletal: No: other, neck pain, shoulder pain, arm pain, back pain, hand pain, leg pain, foot pain Skin: No: Rash, Lesions, Jaundice, Bruising, Other Neurological: No: Weakness, Numbness, Incoordination, Change in speech, Confusion, Seizures, Other Allergies: Coded Allergies: NO KNOWN ALLERGIES (Unverified , 09/21/22) Medications Current Medications Medications Dose Ordered Sig/Marly Route Start Time Stop Time Status Last Admin Dose Admin Pantoprazole Sodium 40 mg DAILY IV 08/03/24 10:00 Patient Own Medication 1 tab DAILY PO 08/03/24 10:00 Hydralazine HCl 10 mg Q6HP PRN IV 08/02/24 20:30 Diagnostic Test (Pha) 1 strip ACHS 08/02/24 22:00 Insulin Human Regular ACHS SC 08/02/24 22:00 Dextrose 50 ml UD PRN IV 08/02/24 20:30 Sodium Chloride 10 ml Q8HR IV 08/02/24 22:00 Acetaminophen/ Hydrocodone Bitart 1 tab Q4HP PRN PO 08/02/24 20:30 Ondansetron HCl 4 mg Q4HP PRN IV 08/02/24 20:30 Docusate Sodium 100 mg BIDPRN PRN PO 08/02/24 20:30 Acetaminophen 500 mg Q6HP PRN PO 08/02/24 20:30 Exam Vital Signs Vital Signs Date Time Temp Pulse Resp B/P (MAP) Pulse Ox O2 Delivery O2 Flow Rate FiO2 08/02/24 19:58 98.1 86 17 111/76 (88) 96 98.1 08/02/24 13:02 Room Air 08/02/24 09:18 0 21 General Appearance: Alert, Oriented X3, Cooperative, No acute distress HEENT: Atraumatic, PERRLA, EOMI, Mucous membr. moist/pink Respiratory: Clear to auscultation, Normal air movement Cardiovascular: Regular rate, Normal S1, Normal S2, No murmurs Abdominal: Normal bowel sounds, Soft, No hepatospenomegaly, No masses, Other (Reports tenderness) Extremities: No clubbing, No cyanosis, No edema, Normal pulses, No tenderness/swelling Skin: No rashes, No breakdown, No significant lesion Neuro: Normal gait, Normal speech, Strength at 5/5 X4 ext, Normal tone, Sensation intact, Cranial nerves 3-12 NL, Reflexes 2+ Psych/Mental Status: Mental status NL, Mood NL Labs/Xrays Labs Test 08/02/24 10:05 08/02/24 09:28 Range/Units White Blood Count 8.8 4.4-10.8 10^3/uL Red Blood Count 4.48 L 4.5-5.90 10^6/uL Hemoglobin 15.5 13.5-17.5 g/dL Hematocrit 46.3 41.0-53.0 % Mean Corpuscular Volume 103.4 H 80.0-100.0 fL Mean Corpuscular Hemoglobin 34.7 H 28.0-32.0 pg Mean Corpuscular Hemoglobin Concent 33.5 32.0-36.0 g/dL Red Cell Distribution Width 13.6 11.8-14.3 % Platelet Count 145 140-450 10^3/uL Mean Platelet Volume 10.0 6.9-10.8 fL Neutrophils (%) (Auto) 54.1 37.0-80.0 % Lymphocytes (%) (Auto) 31.6 10.0-50.0 % Monocytes (%) (Auto) 9.8 0.0-12.0 % Eosinophils (%) (Auto) 3.9 0.0-7.0 % Basophils (%) (Auto) 0.6 0.0-2.0 % Neutrophils # (Auto) 4.7 1.6-8.6 10 ^3/uL Lymphocytes # (Auto) 2.8 0.4-5.4 10 ^3/uL Monocytes # (Auto) 0.9 0-1.3 10 ^3/uL Eosinophils # (Auto) 0.3 0-0.8 10 ^3/uL Basophils # (Auto) 0.1 0-0.2 10 ^3/uL Nucleated Red Blood Cells 0.1 % Sodium Level 140 136-145 mmol/L Potassium Level 3.9 3.5-5.1 mmol/L Chloride Level 110 H 98-107 mmol/L Carbon Dioxide Level 25 20-31 mmol/L Anion Gap 5 5-15 Blood Urea Nitrogen 14 9-23 mg/dL Creatinine 1.08 0.700-1.30 mg/dL Glomerular Filtration Rate Calc 82 >90 mL/min BUN/Creatinine Ratio 13.0 10.0-20.0 Serum Glucose 100 74-106 mg/dL Calcium Level 9.4 8.7-10.4 mg/dL Urine Color Light-yellow Yellow Urine Clarity Clear Clear Urine pH 7.0 5.0-9.0 Urine Specific [place] 1.022 1.001-1.035 Urine Protein Negative Negative Urine Ketones Negative Negative Urine Blood Negative Negative /uL Urine Nitrite Negative Negative Urine Bilirubin Negative Negative Urine Urobilinogen Normal Negative mg/dL Urine Leukocyte Esterase Negative Negative /uL Urine RBC 1 0 - 3 /hpf Urine Microscopic WBC < 1 0-3 /HPF Urine Squamous Epithelial Cells None seen <5 /hpf Urine Bacteria None seen None Seen /hpf Urine Glucose Normal Normal mg/dL PATIENT: KAREN MENA AACCT: [id number] UNIT: [id number] : 1970 LOC: ER ROOM / BED: / AGE / SEX: 53 / M ADM STATUS: REG ER SERVICE [id number] ORDERING PHYSICIAN: ROGER HOFFMAN MD PROCEDURE(s): ABPLIV - CT AB PEL WITH IV CON ONLY REASON: lower abdominal pain ORDER NUMBER(s): [id number], ACCESSION NUMBER(s): [id number] Exam: CT CT AB PEL WITH IV CON ONLY History: lower abdominal pain TECHNIQUE: A digital afloat cryptologic manager image was obtained. During the uneventful, intravenous administration of contrast material, multislice data acquisition was obtained through the abdomen and pelvis. The data set was subsequently reconstructed into axial images. Images were reviewed on a work station using a combination of axial and multiplanar using a variety of window levels and settings. 100 cc of Omnipaque 300 contrast was injected intravenously. All CT scans at this medical facility are performed using dose modulation techniques as appropriate to a performed exam including the following:Automated exposure control was utilized; adjustment of the MA and/or KV according to patient size; and use of iterative reconstruction technique. Radiation Dose Information: CT Dose: CTDI volume is 11 mGy. Dose-length product is 652 mGy*cm Comparison: None FINDINGS: The liver, gallbladder, pancreas, kidneys, adrenal glands, and spleen appear within normal limits. There is no evidence of abdominal lymphadenopathy. There is no free fluid or free air. The stomach grossly appears unremarkable. The small and large bowel loops demonstrate normal caliber and appear within normal limits. A normal appearing appendix is seen in the right lower quadrant abdomen. The abdominal aorta and IVC appear within normal limits. The bladder appears within normal limits the degree of distention. Pelvic organs is unremarkable. There is no evidence of a pelvic mass or lymphadenopathy. There is no free fluid collection. Lung bases are clear. There is no acute osseous abnormality. IMPRESSION: 1. There is no acute process in the abdomen and pelvis. Assessment/Plan Assessment/Plan Lower abdominal pain Penile abnormality Plan 1. Admit to med surge unit 2. Breathing treatment 3. Pain control management 4. Management of fluids and electrolytes 5. Consultation for Urology/hospitalist 6. Diagnostic tests abdomen/pelvis CT 7. DVT prophylaxis-on SCDs 8. Repeat labs CBC, CMP in a.m. 9. Continue with current medical management 10. Treatment plan discussed with patient and RN. Patient verbalized understanding. Plan discussed with: Patient, Other (RN) My Orders Orders - HENRY GIORDANO DNP Procedure Category Date Status Time Consistent DIET 08/03/24 Transmitted Carb(Ccho)Diabetes Breakfast Pantoprazole PHA 08/03/24 In Process (Protonix) 10:00 (NF) PHA 08/03/24 In Process Oxftbsjiw-[id number]-Bvdsadkqg 10:00 Hydralazine Injection PHA 08/02/24 In Process (Apresoline Inject 20:30 Glucose Blood PHA 08/02/24 In Process (Accu-Chek Comfort 22:00 Insulin R (Human) PHA 08/02/24 In Process (Insulin R) 22:00 Dextrose 50% Syringe PHA 08/02/24 In Process 20:30 Allergies KATE 08/02/24 In Process 20:19 Code Status CODE 08/02/24 Transmitted 20:19 Sodium Chloride Lock PHA 08/02/24 In Process (Saline Lock Ns) 22:00 Oxygen Per Hour RT 08/02/24 Transmitted 20:19 Hydrocodone-Acet PHA 08/02/24 In Process 5/325mg Tab ([place] 20:30 Ondansetron Hcl PHA 08/02/24 In Process (Zofran) 20:30 Docusate Sodium PHA 08/02/24 In Process Capsule (Colace 20:30 Complete Blood Count LAB 08/03/24 Verified 04:00 Comprehensive LAB 08/03/24 Verified Metabolic Panel 04:00 Condition: Serious KATE 08/02/24 In Process 20:19 Bedrest With Bathroom KATE 08/02/24 In Process Privileg 20:19 Sequential KATE 08/02/24 In Process Compression Device Acetaminophen Tab Or PHA 08/02/24 In Process Cap (Tylenol Tablet 20:30 Problem List: (1) Lower abdominal pain (2) Penile abnormality Date of Service: Aug 02, 2024 Billing Provider: HENRY GIORDANO DNP Common Visit Codes: [id number] INP/OBS CARE (HIGH) HENRY GIORDANO DNP Aug 02, 2024 20:57
[2024-08-02] MEDS ORDERED: MORPHINE SULFATE INJ 2 MG/ml SYRG IV PRN (21:00)
[2024-08-02] MEDS ORDERED: NITROGLYCERIN 0.4 MG SL TAB SL PRN (21:00)
[2024-08-02] MEDS: SODIUM CHLOR 0.9% PF (SALINE LOCK) 10ML VIAL/SYR IV SCH (22:41)
[2024-08-02] MEDS: ACCU-CHEK COMFORT CURVE STRIP VI SCH (22:46)
[2024-08-02] MEDS: InsuLIN REG 1unit/0.01ml Soln (100units/ml) SC SCH (22:59)
[2024-08-03] VITALS (7 sets, daily range): BP systolic 100–119; BP diastolic 57–91; PULSE 72–89; RESP 16–19; TEMP 97.4–98.4; O2SAT 95–99
[2024-08-03 07:27] LABS: Alanine Aminotransferase 21 U/L (7-40); Albumin 4.5 g/dL (3.2-4.8); Alkaline Phosphatase 86 U/L (46-116); Anion Gap 9 (5-15); BUN/Creatinine Ratio 21.5 (10.0-20.0); Bilirubin, Total 0.6 mg/dL (0.2-1.0); Blood Urea Nitrogen 20 mg/dL (9-23); Calcium 9.5 mg/dL (8.7-10.4); Carbon Dioxide 23 mmol/L (20-31); Glucose 96 mg/dL (74-106); Potassium 4.1 mmol/L (3.5-5.1); Sodium 141 mmol/L (136-145); Total Protein 7.1 g/dL (5.7-8.2)
[2024-08-03 07:31] LABS: Aspartate Aminotransferase 11 U/L (13-40); Chloride 109 mmol/L (98-107)
[2024-08-03 07:44] LABS: Basophils # (auto) 0 10 ^3/uL (0-0.2); Eosinophils # (auto) 0.3 10 ^3/uL (0-0.8); Hemoglobin 15.3 g/dL (13.5-17.5)
[2024-08-03 07:46] LABS: Basophils % (auto) 0.6 % (0.0-2.0); Eosinophils % (auto) 3.8 % (0.0-7.0); Hematocrit 44.2 % (41.0-53.0); Lymphocytes # (auto) 2.7 10 ^3/uL (0.4-5.4); Lymphocytes % (auto) 31.4 % (10.0-50.0); Mean Corpuscular Hemoglobin 35.9 pg (28.0-32.0); Mean Corpuscular Hgb Conc. 34.6 g/dL (32.0-36.0); Mean Corpuscular Volume 103.9 fL (80.0-100.0); Monocytes # (auto) 0.7 10 ^3/uL (0-1.3); Monocytes % (auto) 8.7 % (0.0-12.0); Neutrophils # (auto) 4.7 10 ^3/uL (1.6-8.6); Neutrophils % (auto) 55.5 % (37.0-80.0); Nucleated Red Blood Cells % 0.1 %; Platelet Count (auto) 220 10^3/uL (140-450); Red Blood Cells 4.26 10^6/uL (4.5-5.90); Red Cell Distribution Width 13.8 % (11.8-14.3); White Blood Cell 8.4 10^3/uL (4.4-10.8)
[2024-08-03] MEDS: COBICISTAT PO SCH (10:00)
[2024-08-03] MEDS: DARUNAVIR PO SCH (10:00)
[2024-08-03] MEDS: TENOFOVIR ALAFENAMIDE PO SCH (10:00)
[2024-08-03] MEDS: EMTRICITABINE PO SCH (10:00)
[2024-08-03] MEDS: PANTOPRAZOLE 40 MG/10 ML VIAL INJ IV SCH (10:51)
--- NOTE | 2024-08-03 13:27 | DVHPN2 ---
Eyes: No Pain, No Vision change, No Conjunctivae inflammation, No Eyelid inflammation, No Other, No Redness ENT: No Ear pain, No Ear discharge, No Nose pain, No Nose discharge, No Nose congestion, No Mouth pain, No Mouth swelling, No Throat pain, No Throat swelling, No Other Cardiovascular: No Chest Pain, No Palpitations, No Orthopnea, No Paroxysmal Noc. Dyspnea, No Edema, No Lt Headedness, No Other Respiratory: No Cough, No Dry, No Shortness of breath, No SOB with excertion, No Wheezing, No Hemoptysis, No Pleuritic Pain, No Sputum, No Other Gastrointestinal: No Nausea, No Vomiting; Abdominal Pain; No Diarrhea, No Constipation, No Melena, No Hematochezia, No Other Genitourinary: Dysuria; No Frequency, No Incontinence, No Hematuria, No Retention, No Other Musculoskeletal: No other, No neck pain, No shoulder pain, No arm pain, No back pain, No hand pain, No leg pain, No foot pain Skin: No Rash, No Lesions, No Jaundice, No Bruising, No Other Objective Vitals Vital Signs Date Time Temp Pulse Resp B/P (MAP) Pulse Ox O2 Delivery O2 Flow Rate FiO2 08/03/24 08:00 97.4 88 16 111/88 (96) 97 97.4 08/03/24 00:19 Room Air* 0 21 Intake/Output Intake and Output 08/03/24 07:00 Intake Total 0 ml Balance 0 ml Intake Oral 0 ml Medications Current Medications Medications Dose Ordered Sig/Marly Route Start Time Stop Time Status Last Admin Dose Admin Pantoprazole Sodium 40 mg DAILY IV 08/03/24 10:00 08/03/24 10:51 40 MG Patient Own Medication 1 tab DAILY PO 08/03/24 10:00 08/03/24 10:00 1 TAB Hydralazine HCl 10 mg Q6HP PRN IV 08/02/24 20:30 Diagnostic Test (Pha) 1 strip ACHS 08/02/24 22:00 08/03/24 11:30 1 STRIP Insulin Human Regular ACHS SC 08/02/24 22:00 08/02/24 22:59 2 UNITS Dextrose 50 ml UD PRN IV 08/02/24 20:30 Sodium Chloride 10 ml Q8HR IV 08/02/24 22:00 08/03/24 13:14 10 ML Acetaminophen/ Hydrocodone Bitart 1 tab Q4HP PRN PO 08/02/24 20:30 Ondansetron HCl 4 mg Q4HP PRN IV 08/02/24 20:30 Docusate Sodium 100 mg BIDPRN PRN PO 08/02/24 20:30 Acetaminophen 500 mg Q6HP PRN PO 08/02/24 20:30 Laboratory Results Laboratory Tests 08/03/24 06:28 Chemistry Test 08/03/24 06:28 Albumin 4.5 g/dL (3.2-4.8) Calcium Level 9.5 mg/dL (8.7-10.4) Total Protein 7.1 g/dL (5.7-8.2) LFT Test 08/03/24 06:28 Alanine Aminotransferase (ALT) 21 U/L (7-40) Alkaline Phosphatase 86 U/L (46-116) Aspartate Amino Transferase (AST) 11 U/L (13-40) L Total Bilirubin 0.6 mg/dL (0.2-1.0) Urinalysis Test 08/02/24 09:28 Urine Color Light-yellow (Yellow) Urine Clarity Clear (Clear) Urine pH 7.0 (5.0-9.0) Urine Specific [place] 1.022 (1.001-1.035) Urine Protein Negative (Negative) Urine Ketones Negative (Negative) Urine Blood Negative /uL (Negative) Urine Nitrite Negative (Negative) Urine Bilirubin Negative (Negative) Urine Urobilinogen Normal mg/dL (Negative) Urine Leukocyte Esterase Negative /uL (Negative) Urine RBC 1 /hpf (0 - 3) Urine Microscopic WBC < 1 /HPF (0-3) Urine Squamous Epithelial Cells None seen /hpf (<5) Urine Bacteria None seen /hpf (None Seen) Urine Glucose Normal mg/dL (Normal) MADHAV FAIR MD Aug 03, 2024 13:27
[2024-08-03] MEDS ORDERED: DOXY-286 PO (14:17)
--- NOTE | 2024-08-03 14:19 | DVHDS2 ---
Discharge Summary Date of Admission Aug 02, 2024 at 20:56 Date of Discharge: Aug 03, 2024 Admitting Diagnosis Lower abdominal pain Penile abnormality Labs/Diagnostic Data: Laboratory Results Test 08/03/24 06:28 08/03/24 06:09 08/02/24 09:28 White Blood Count 8.4 10^3/uL (4.4-10.8) Red Blood Count 4.26 10^6/uL (4.5-5.90) Hemoglobin 15.3 g/dL (13.5-17.5) Hematocrit 44.2 % (41.0-53.0) Mean Corpuscular Volume 103.9 fL (80.0-100.0) Mean Corpuscular Hemoglobin 35.9 pg (28.0-32.0) Mean Corpuscular Hemoglobin Concent 34.6 g/dL (32.0-36.0) Red Cell Distribution Width 13.8 % (11.8-14.3) Platelet Count 220 10^3/uL (140-450) Mean Platelet Volume 9.3 fL (6.9-10.8) Neutrophils (%) (Auto) 55.5 % (37.0-80.0) Lymphocytes (%) (Auto) 31.4 % (10.0-50.0) Monocytes (%) (Auto) 8.7 % (0.0-12.0) Eosinophils (%) (Auto) 3.8 % (0.0-7.0) Basophils (%) (Auto) 0.6 % (0.0-2.0) Neutrophils # (Auto) 4.7 10 ^3/uL (1.6-8.6) Lymphocytes # (Auto) 2.7 10 ^3/uL (0.4-5.4) Monocytes # (Auto) 0.7 10 ^3/uL (0-1.3) Eosinophils # (Auto) 0.3 10 ^3/uL (0-0.8) Basophils # (Auto) 0 10 ^3/uL (0-0.2) Nucleated Red Blood Cells 0.1 % Sodium Level 141 mmol/L (136-145) Potassium Level 4.1 mmol/L (3.5-5.1) Chloride Level 109 mmol/L (98-107) Carbon Dioxide Level 23 mmol/L (20-31) Anion Gap 9 (5-15) Blood Urea Nitrogen 20 mg/dL (9-23) Creatinine 0.93 mg/dL (0.700-1.30) Glomerular Filtration Rate Calc 98 mL/min (>90) BUN/Creatinine Ratio 21.5 (10.0-20.0) Serum Glucose 96 mg/dL (74-106) Calcium Level 9.5 mg/dL (8.7-10.4) Total Bilirubin 0.6 mg/dL (0.2-1.0) Aspartate Amino Transferase (AST) 11 U/L (13-40) Alanine Aminotransferase (ALT) 21 U/L (7-40) Alkaline Phosphatase 86 U/L (46-116) Total Protein 7.1 g/dL (5.7-8.2) Albumin 4.5 g/dL (3.2-4.8) POC Glucose 100 mg/dl (70-106) Urine Color Light-yellow (Yellow) Urine Clarity Clear (Clear) Urine pH 7.0 (5.0-9.0) Urine Specific [place] 1.022 (1.001-1.035) Urine Protein Negative (Negative) Urine Ketones Negative (Negative) Urine Blood Negative /uL (Negative) Urine Nitrite Negative (Negative) Urine Bilirubin Negative (Negative) Urine Urobilinogen Normal mg/dL (Negative) Urine Leukocyte Esterase Negative /uL (Negative) Urine RBC 1 /hpf (0 - 3) Urine Microscopic WBC < 1 /HPF (0-3) Urine Squamous Epithelial Cells None seen /hpf (<5) Urine Bacteria None seen /hpf (None Seen) Urine Glucose Normal mg/dL (Normal) Other Laboratory Tests 08/03/24 06:28 Brief Hx & Hospital Course: This is a 53-year-old male with past medical history of HIV, DM, PUD, and hypertension who presented to [facility] ED with complaint of suprapubic pain. Patient reports that he has had a small pin point skin jocelyn directly above his penis for the past few years, however, in the last week that small pin point jocelyn became swollen and has started to have associated pain that radiates throughout the suprapubic region, dysuria due to the pain of the mass. Abdomen/pelvis CT showed no acute process. Chlamydia and gonorrhea was checked and is negative. Today the patient said his abdominal pain resolved. He will see his primary care physician regarding to the jocelyn in his penis. I am going to discharge him home. Advised him to follow up with primary care physician 1-2 weeks. Activity as tolerated. Diet per home diet. Physical exam: HEENT: Normocephalic atraumatic pupils equal react to light and accommodation. Extraocular muscles intact, conjunctiva pink, oropharynx moist, no thrush, no exudate. Lymphatic: No lymphadenopathy Cardiovascular exam: S1, S2 was heard. No murmurs, rubs, gallops Lung: Clear on auscultation bilaterally, no wheeze, rale, rhonchi. GI: Abdominal soft, nondistended, nontenderness, positive bowel sounds. Extremity: No crepitus, cyanosis, edema. Pedal pulses present bilateral. Full range of motion. Skin: Normal turgor, no rash. Psych: Alert, oriented x3. Neurology: No focal deficits, cranial nerve II to XII grossly intact. This medical document was created using an electronic medical record system with Indexing direct computerized dictation system. Although this document has been carefully reviewed, there may still be some phonetic and typographical errors. These areas are purely typographical due to imperfections of the software programs, and do not reflect any compromise in the patient's medical care. Condition at Discharge: Stable Final Diagnosis/Problems List Lower abdominal pain resolved Penile abnormality, chlamydia and gonorrhea ruled out Discharge Disposition: Home Discharge Instruct/Medications Diet: Regular Activity: No Restrictions, As Tolerated Follow Up/Referral: PCP 1-2 WEEKS Medications: DOXYCYCLINE 100MG BID X 7 DAYS Discharge Statement: "Patient was advised to return to the ER or call 911 if any headaches, dizziness, shortness of breath, chest pain, abdominal pain, bleeding, fevers, or worsening of medical condition. Patient was counseled about treatment plan, medications, possible side effects, patientverbalized understanding. All questions were answered to the best of my ability. This discharge took greater then 30 minutes in planning, reviewing documentation, counseling the patient, and discussing with other team members." ASSESSMENT ASSESSMENT Assessment ABDOMINAL PAIN Date of Service: Aug 03, 2024 Billing Provider: MADHAV FAIR MD Common Visit Codes: [id number]/OBS DISCH DAY >30min MADHAV FAIR MD Aug 03, 2024 14:18
[2024-08-03 19:06] LABS: Chlamydia Trachomatis, NAA Negative (Negative); Neisseria gonorrhoeae, NAA Negative (Negative)
== END 2024-08-03 17:00 | disposition home or self-care (01) | DRG 861 ==
LOC: ER 09:18 → OVERFLOW 20:56 → WEST WING 20:57
PROVIDERS: ADMIT Nurse Practitioner Family; ATTEND Nurse Practitioner Family
DX: Z76.5 Malingerer [conscious simulation] (principal); I10 Essential (primary) hypertension; Q55.69 Other congenital malformation of penis; Z79.899 Other long term (current) drug therapy; Z87.11 Personal history of peptic ulcer disease; Z79.82 Long term (current) use of aspirin
CPT/HCPCS: 36415; 74177; 80048; 80053; 81001; 82962; 85025; G0378; J1815; J2470

== ENCOUNTER 2025-03-03 16:46 | Inpatient (IN) | payer MEDICAID ==
[~2025-03-03] VITALS: Ht 167.6 cm; Wt 78.7 kg
[~2025-03-03 16:46] MED LIST changes: +DOXY-286 PO
--- NOTE | 2025-03-03 17:51 | ED.PDOC ---
HPI Comments This is a 54 year old male presenting to the ED with chief complaint of chest pain. Patient reports that he has been experiencing constant left sided sharp and throbbing chest pain with associated mild SOB for the past 3 days. Patient relays that his pain is intermittent in intensity, but is constantly there. Patient states that he previously had an WI before, but no stent was placed. Patient denies any N/V, dizziness, headache, or syncope. Chief Complaint: Chest Pain Time Seen by MD: 17:37 Primary Care Provider: UNKNOWN Reviewed Notes: Nurses Notes, Medications, Allergies Allergies: Coded Allergies: NO KNOWN ALLERGIES (Unverified , 09/21/22) Home Meds Active Scripts Doxycycline Hyclate (DOXYCYCLINE HYCLATE) 100 Mg Tab, 1 TAB PO BID, #14 TAB Prov:MADHAV FAIR MD 08/03/24 Carisoprodol (Soma) 250 Mg Tab, 250 MG PO Q12HP PRN for 7 Days, #14 TAB Prov:JESSICA GARCIA PAPER CUP MACHINE TENDER 06/03/24 Acetaminophen (Acetaminophen) 500 Mg Tab, 500 MG PO Q4HP, #30 TAB 0 Refills Prov:MARYLIN AREVALO 05/13/24 Albuterol Sulfate (VENTOLIN MDI) 90 Mcg Ih, 90 MCG IN Q4HP PRN for 30 Days, #1 INH Prov:ANTONIO CASANOVA RESIDENT 03/17/24 Oseltamivir Phosphate (Tamiflu) 75 Mg Cap, 75 MG PO Q12HR for 3 Days, #6 CAP Prov:ANTONIO CASANOVA 03/17/24 Ergocalciferol (VITAMIN D 92655 UNIT) 50,000 [place], [address] UNIT PO Q7D for 90 Days, #12 CAP Prov:ANTONIO CASANOVA RESIDENT 03/17/24 Acetaminophen (Acetaminophen) 325 Mg Tab, 650 MG PO Q6HP PRN for 5 Days, #40 TAB Prov:ANTONIO CASANOVA RESIDENT 03/17/24 Reported Medications Carvedilol (Carvedilol) 6.25 Mg Tab, 1 TAB PO DAILY, #180 TAB 1 Refill 06/03/24 Aspirin (Aspir-81) 81 Mg Tab, 1 TAB PO DAILY, #30 TAB 5 Refills 06/03/24 Enalapril Maleate (Enalapril Maleate) 5 Mg Tab, 2 TAB PO DAILY, #30 TAB 5 Refills 06/03/24 Pantoprazole Sodium Sesquihydr (Pantoprazole Sodium) 40 Mg Tab, 1 TAB PO DAILY 03/16/24 Hxoaqcrbm-Lpgpgmiuyl-Bbbokfzxn (Symtuza [phone] mg) 1 Tab Tab, 1 TAB PO DAILY 03/16/24 Information Source: Patient Mode of Arrival: Ambulatory Severity: Moderate Timing: Days Duration: Since onset Prehospital treatment: None Location: Chest (L) Radiation: No Radiation Quality: Sharp, Other (Throbbing) Onset: At Rest Cardiac Risk Factors: Hyperlipidemia, HTN PE Risk Factors: None History of: Similar pain in past, WI Associated Signs and Symptoms: SOB Past Medical History PAST MEDICAL HISTORY: DM, HIV, HTN, WI, PUD Surgical History: Denies all surgeries Family History Family History: Reviewed,noncontributory to illness, Family hx of Cancer Social History Smoker: Non-Smoker Alcohol: Denies ETOH Use Drugs: Denies Drug Use Lives In: Home Constitutional: denies: chills, diaphoresis, fatigue, fever, malaise, sweats, weakness, others EENTM: denies: blurred vision, double vision, ear bleeding, ear discharge, ear drainage, ear pain, ear ringing, eye pain, eye redness, hearing loss, mouth pain, mouth swelling, nasal discharge, nose bleeding, nose congestion, nose pain, photophobia, tearing, throat pain, throat swelling, voice changes, others Respiratory: reports: shortness of breath; denies: cough, hemoptysis, orthopnea, SOB at rest, SOB with excertion, stridor, wheezing, others Cardiovascular: reports: chest pain; denies: dizzy spells, diaphoresis, Dyspnea on exertion, edema, irregular heart beat, left arm pain, lightheadedness, palpitations, PND, syncope, others Gastrointestinal: denies: abdomen distended, abdominal pain, blood streaked kashmir wels, constipated, diarrhea, dysphagia, difficulty swallowing, hematemesis, melena, nausea, poor appetite, poor fluid intake, rectal bleeding, rectal pain, vomiting, others Genitourinary: denies: burning, dysuria, flank pain, frequency, hematuria, incontinence, penile discharge, penile sore, pain, testicle pain, testicle swelling, urgency, others Neurological: denies: dizziness, fainting, headache, left sided numbness, left sided weakness, numbness, paresthesia, pre-existing deficit, right sided numbness, right sided weakness, seizure, speech problems, tingling, tremors, weakness, others Musculoskeletal: denies: back pain, gout, joint pain, joint swelling, muscle pain, muscle stiffness, neck pain, others Integumetry: denies: bruises, change in color, change in hair/nails, dryness, laceration, lesions, lumps, rash, wounds, others Allergic/Immunocompromised: denies: Difficulty Healing, Frequent Infections, Hives, Itching, others Hematologic/Lymphatic: denies: anemia, blood clots, easy bleeding, easy bruisin g, swollen glands, others Endocrine: denies: excessive hunger, excessive sweating, excessive thirst, excessive urination, flushing, intolerance to cold, intolerance to heat, unexplained weight gain, unexplained weight loss, others Psychiatric: denies: anxiety, bipolar disorder, depression, hopeless, panic disorder, schizophrenia, sleepless, suicidal, others All Other Systems: Reviewed and Negative Physical Exam General Appearance: No Apparent Distress, Normal HEENT: Normal ENT Inspection, Pharynx Normal, TMs Normal Neck: Full Range of Motion, Non-Tender, Normal, Normal Inspection Respiratory: Chest Non-Tender, Lungs Clear, No Accessory Muscle Use, No Respiratory Distress, Normal Breath Sounds Cardiovascular: No Edema, No JVD, No Murmur, No Gallop, Normal Peripheral Pulses, Regular Rate/Rhythm Breast Exam: Deferred Gastrointestinal: No Organomegaly, Non Tender, No Pulsatile Mass, Normal Bowel Sounds, Soft Genitalia: Deferred Pelvic: Deferred Rectal: Deferred Extremities: No calf tenderness, Normal capillary refill, Normal inspection, Normal range of motion, Non-tender, No pedal edema Musculoskeletal : Apperance: Normal Neurologic: Alert, station agent II-XII nml as Tested, No Motor Deficits, Normal Affect, Normal Mood, No Sensory Deficits Cerebellar Function: Normal Reflexes: Normal Skin: Dry, Normal Color, Warm Lymphatic: No Adenopathy Was a procedure done? Was a procedure done?: No CP Differential Dx Differential Diagnosis: WI, Pulmonary Embolus Differential Diagnosis: Angina, Aortic dissection, Chest Wall Pain, Cholelithiasis, Costochondritis, Esophageal reflux/spasm, Gastritis, Myocardial Infarction, Pericarditis, Pneumonia, Pneumothorax, Pulmonary Embolus X-Ray, Labs, Meds, VS Vital Signs Date Time Temp Pulse Resp B/P (MAP) Pulse Ox O2 Delivery O2 Flow Rate FiO2 03/03/25 18:10 62 03/03/25 18:10 97.8 62 18 115/71 (86) 98 97.8 03/03/25 18:00 84 03/03/25 16:51 90 03/03/25 16:48 98.8 94 19 119/79 96 98.8 Lab Test 03/03/25 18:29 03/03/25 17:12 Range/Units Troponin I High Sensitivity < 3 L < 3 L </=54 ng/L White Blood Count 8.8 4.4-10.8 10^3/uL Red Blood Count 4.47 L 4.5-5.90 10^6/uL Hemoglobin 15.6 13.5-17.5 g/dL Hematocrit 45.6 41.0-53.0 % Mean Corpuscular Volume 102.2 H 80.0-100.0 fL Mean Corpuscular Hemoglobin 34.8 H 28.0-32.0 pg Mean Corpuscular Hemoglobin Concent 34.1 32.0-36.0 g/dL Red Cell Distribution Width 13.6 11.8-14.3 % Platelet Count 261 140-450 10^3/uL Mean Platelet Volume 9.1 6.9-10.8 fL Neutrophils (%) (Auto) 55.1 37.0-80.0 % Lymphocytes (%) (Auto) 31.4 10.0-50.0 % Monocytes (%) (Auto) 10.3 0.0-12.0 % Eosinophils (%) (Auto) 2.7 0.0-7.0 % Basophils (%) (Auto) 0.5 0.0-2.0 % Neutrophils # (Auto) 4.9 1.6-8.6 10 ^3/uL Lymphocytes # (Auto) 2.8 0.4-5.4 10 ^3/uL Monocytes # (Auto) 0.9 0-1.3 10 ^3/uL Eosinophils # (Auto) 0.2 0-0.8 10 ^3/uL Basophils # (Auto) 0 0-0.2 10 ^3/uL Nucleated Red Blood Cells 0.1 % Sodium Level 143 136-145 mmol/L Potassium Level 3.9 3.5-5.1 mmol/L Chloride Level 106 98-107 mmol/L Carbon Dioxide Level 25 20-31 mmol/L Anion Gap 12 5-15 Blood Urea Nitrogen 22 9-23 mg/dL Creatinine 1.06 0.700-1.30 mg/dL Glomerular Filtration Rate Calc 83 >90 mL/min BUN/Creatinine Ratio 20.8 H 10.0-20.0 Serum Glucose 96 74-106 mg/dL Calcium Level 9.5 8.7-10.4 mg/dL Current Medications Medications (Trade) Dose Ordered Sig/Marly Route Start Time Stop Time Status Last Admin Aspirin 325 mg ONCE ONCE PO 03/03/25 18:00 03/03/25 18:01 DC 03/03/25 18:08 Time of 1ST Reevaluation: 18:36 Reevaluation 1ST: Unchanged Time of 2ND Reevaluation: 19:47 Reevaluation 2ND: Improved Patient Education/Counseling: Diagnosis, Treatment, Prognosis, Need For Follow Up Family Education/Counseling: No Family Present Additional Information Reviewed patient's previous visit(s): 08/02/24 for abdominal pain, 06/02/24 for abdominal pain, 03/14/24 for chest pain, 09/21/22 for ACS. The following tests were ordered, and results were reviewed by me: Additional information was gathered from interviewing the following independent historian: I reviewed and agreed with the following test results read by other provider: I discussed treatments and results with medical personnel and: PATIENT Comprehensive systems review obtained and negative except for what is stated in the HPI. This is a patient who has a history of previous WI. He states that his symptoms feel similar but worse than the episode when he had the WI. patient is hypertensive with high cholesterol and prediabetic. Has a heart score of five. The workup does not support that he has had infarction however symptoms are consistent with unstable angina. Patient will be admitted for further evaluation and treatment SEPSIS Sepsis Screen Date sepsis recognized/suspect: Mar 03, 2025 Time Sepsis recognized/suspect: 1647 Recent Procedure: No On Antibiotic Therapy: No Respiratory Rate >20: No Heart Rate >90: No Temp<36 C (96.8 F) or >38.3 C: No SBP <90 or MAP <65 mmHG: No New Acute Mental Status Change: No Is the patient on CPAP, BIPAP,: No Physician Orders Electrocardigram (03/03/25 16:53) Troponin-I Hs (03/03/25 19:53) Electrocardigram (03/03/25 17:53) Electrocardigram (03/03/25 19:53) Continuous Ekg Monitoring 08,12,16,20,00,04 (03/03/25 17:51) Chest Xray 1 View (03/03/25 17:51) Vital Signs Date Time Temp Pulse Resp B/P (MAP) Pulse Ox O2 Delivery O2 Flow Rate FiO2 03/03/25 18:10 62 03/03/25 18:10 97.8 62 18 115/71 (86) 98 97.8 03/03/25 18:00 84 03/03/25 16:51 90 03/03/25 16:48 98.8 94 19 119/79 96 98.8 Laboratory Tests Test 03/03/25 17:12 White Blood Count 8.8 10^3/uL (4.4-10.8) Medications Medications Dose Ordered Sig/Marly Route Start Time Stop Time Status Last Admin Dose Admin Aspirin 325 mg ONCE ONCE PO 03/03/25 18:00 03/03/25 18:01 DC 03/03/25 18:08 Departure 1 Departure Time of Disposition: 19:48 Impression: Primary Impression: Unstable angina Disposition: ADMITTED INPATIENT Admit to: Tele Condition: Serious Discharged With: Self Critical Care Note Critical Care Time?: Yes (55 min-critical care time only) Critical care comment: due to concerns for patient's condition deteriorating, the care required my highest level of attention and readiness to intervene. i assessed the patient's condition, ordered the proper tests and treatments, reassessed for response and reviewed the results. i communicated with medical personnel and formulated a plan of care. total critical care time does not include any procedures Stability Stability form required: No Heart Score Heart Score: Heart Score Response (Comments) Value History Moderate Suspicious 1 EKG Normal 0 Age 45-64 1 Risk Factors >3 or Hx ASHD 2 Troponin Normal limit 0 Total 4 I personally scribed for JAVON DENISE MD ([email or web address]) on 03/03/25 at 17:51. Electronically submitted by Sae Menendez ([email or web address]). JAVON DENISE MD Mar 03, 2025 17:51
[2025-03-03 18:29] LABS: Chloride 106 mmol/L (98-107); Potassium 3.9 mmol/L (3.5-5.1); Sodium 143 mmol/L (136-145)
[2025-03-03 18:30] LABS: Anion Gap 12 (5-15); Carbon Dioxide 25 mmol/L (20-31)
[2025-03-03 18:31] LABS: Calcium 9.5 mg/dL (8.7-10.4)
--- NOTE | 2025-03-03 18:31 | DVH ---
CHEST RADIOGRAPH Indication: cp Technique: Single frontal view of the chest was obtained COMPARISON: IH-X-RAY, RIBS RIGHT WITH PA CHEST on DOS: 12/20/24, XY CHEST PORTABLE on DOS: 03/14/24, X Y CHEST XRAY 1 VIEW on DOS: 12/30/23, XY CHEST XRAY 1 VIEW on DOS: 07/29/23, CT CT ANGIO CHEST CONTRAST o n DOS: 02/06/23 FINDINGS: Lungs and pleural spaces are clear. Cardiac silhouette and izzy are within normal limits. Bones and s oft tissues demonstrate no significant abnormality. IMPRESSION: No acute disease.
[2025-03-03 18:35] LABS: BUN/Creatinine Ratio 20.8 (10.0-20.0); Blood Urea Nitrogen 22 mg/dL (9-23); Glucose 96 mg/dL (74-106)
[2025-03-03 18:39] LABS: Hematocrit 45.6 % (41.0-53.0); Hemoglobin 15.6 g/dL (13.5-17.5); Mean Corpuscular Hemoglobin 34.8 pg (28.0-32.0); Mean Corpuscular Volume 102.2 fL (80.0-100.0); Nucleated Red Blood Cells % 0.1 %
[2025-03-03] MEDS ORDERED: ACETAMINOPHEN 325 MG TAB PO PRN (20:45)
--- NOTE | 2025-03-03 20:47 | ECG ---
[facility] Test Date: 2025-03-03 Test Time: 16:51:25 Pat Name: KAREN ALLENODepartment: Room: 0240T Gender: M Referral Rn: [place] : 1970 Requested By: KALE MARY Order Number: [id number] Reading MD: Sandoval Kim Measurements Intervals [place] Rate: 90 P: 68 NV: 178 QRS: 89 QRSD: 76 T: 31 QT: 337 QTc: 413 Interpretive Statements Sinus rhythm ST elev, probable normal early repol pattern Electronically Signed On 03-08-2025 20:27:40 PDT by Sandoval Kim Please click the below link to view image of tracing.
--- NOTE | 2025-03-03 20:56 | DVHHPRES ---
History of Present Illness Resident Creating Document: AFRICA LORENZANA RESIDENT History of Present Illness Mr. Bethea is a 54 year old male with prior medical history of questionable cardiomyopathy, myocardial infarction (he is unsure if he had stents placed), hyperlipidemia, prediabetes, fatty liver, PUD, and HIV, who presents today with chief complaint of chest pain. He reports 3 days of constant pressure-like pain in left pectoral region, 7/10 intensity, non-radiating, in variable functional class, aggravated by laying flat and superficial palpationm and relieved when s itting up, associated with tachycardia and intermittent periods of sharp left pectoral pain described as 10/10 in intensity. Patient report upper respiratory syndromes 1 week ago. He denies nausea, vomiting, diaphoresis, abdominal pain, loss of consciousness, shortness of breath, and other symptoms. Due to persistence of symptoms he sought medical attention in the emergency department. On evaluation in the ED, vitals were stable. Twelve lead EKG shows sinus rhythm with possible early repolarization pattern. Initial labs show CBC and BMP within normal range. Troponins were negative. Chest x-ray shows no acute disease. He was given aspirin and was admitted for further work up and management. Cardiovascular: WI, Other (Cardiomyopathy) GI: Peptic Ulcer disease Hepatobiliary: Other (Hepatic steatosis) Infectious disease: HIV Endocrine: Other (Prediabetes) Past Surgical History: Other (Peptic ulcer repair) Smoke: Quit (States he smoked 1 pack a day for approximately 15-20 years with cessation 6 years ago) ALCOHOL: heavy (Refers he used to drink multiple alcoholic beverages a day and quit approximately 14 years ago) Drugs: Other (Refers previous history of crack use for approximately 8 years with cessation 14 years ago) Domestic Violence: Neg Review of Systems Review of Systems Constitutional: Denies weight loss, fever and chills. HEENT: Denies changes in vision and hearing. Respiratory: Denies shortness of breath and cough Cardiovascular: Refers pressure-like chest pain with intermittent periods of acute sharp pain, Denies palpitations GI: Denies abdominal distention, abdominal pain, diarrhea : Denies dysuria and urinary frequency. Musculoskeletal: Denies symptoms Skin: Denies rash and pruritus. Neurological: denies dizziness headache vision or hearing problems Allergies: Coded Allergies: NO KNOWN ALLERGIES (Unverified , 09/21/22) Exam Vital Signs Vital Signs Date Time Temp Pulse Resp B/P (MAP) Pulse Ox O2 Delivery O2 Flow Rate FiO2 03/03/25 18:10 62 03/03/25 18:10 97.8 18 115/71 (86) 98 97.8 Exam General: The patient alert and oriented in person place and time. Patient following commands HEENT: Normocephalic, atraumatic, normal reactive pupils, EOM intact, pink conjunctiva, pink moist mucous membrane Respiratory/pulmonary: Bilateral chest expansion, no pain on palpation of chest wall, clear lungs bilaterally, vesicular murmurs present in almost all lung knowles, no associated crackles or wheezes. Cardiovascular: Normal RRR, normal S1 and S2, no murmurs Abdomen: Abdomen nondistended, normal bowel sounds, soft, there is no pain to palpation in any of the abdominal quadrants, no palpable masses. Extremities: No deformities, there is no peripheral edema present at the lower extremities, normal pulses Skin: No rashes or pruritus, there is no sacral edema present at this time. Neurological: Intact cranial nerves with no focal neurologic deficits Labs/Xrays Labs Test 03/03/25 18:29 03/03/25 17:12 Range/Units Troponin I High Sensitivity < 3 L </=54 ng/L White Blood Count 8.8 4.4-10.8 10^3/uL Red Blood Count 4.47 L 4.5-5.90 10^6/uL Hemoglobin 15.6 13.5-17.5 g/dL Hematocrit 45.6 41.0-53.0 % Mean Corpuscular Volume 102.2 H 80.0-100.0 fL Mean Corpuscular Hemoglobin 34.8 H 28.0-32.0 pg Mean Corpuscular Hemoglobin Concent 34.1 32.0-36.0 g/dL Red Cell Distribution Width 13.6 11.8-14.3 % Platelet Count 261 140-450 10^3/uL Mean Platelet Volume 9.1 6.9-10.8 fL Neutrophils (%) (Auto) 55.1 37.0-80.0 % Lymphocytes (%) (Auto) 31.4 10.0-50.0 % Monocytes (%) (Auto) 10.3 0.0-12.0 % Eosinophils (%) (Auto) 2.7 0.0-7.0 % Basophils (%) (Auto) 0.5 0.0-2.0 % Neutrophils # (Auto) 4.9 1.6-8.6 10 ^3/uL Lymphocytes # (Auto) 2.8 0.4-5.4 10 ^3/uL Monocytes # (Auto) 0.9 0-1.3 10 ^3/uL Eosinophils # (Auto) 0.2 0-0.8 10 ^3/uL Basophils # (Auto) 0 0-0.2 10 ^3/uL Nucleated Red Blood Cells 0.1 % Sodium Level 143 136-145 mmol/L Potassium Level 3.9 3.5-5.1 mmol/L Chloride Level 106 98-107 mmol/L Carbon Dioxide Level 25 20-31 mmol/L Anion Gap 12 5-15 Blood Urea Nitrogen 22 9-23 mg/dL Creatinine 1.06 0.700-1.30 mg/dL Glomerular Filtration Rate Calc 83 >90 mL/min BUN/Creatinine Ratio 20.8 H 10.0-20.0 Serum Glucose 96 74-106 mg/dL Calcium Level 9.5 8.7-10.4 mg/dL SEPSIS Sepsis Screen Date sepsis recognized/suspect: Mar 03, 2025 Time Sepsis recognized/suspect: 1647 Recent Procedure: No On Antibiotic Therapy: No Respiratory Rate >20: No Heart Rate >90: No Temp<36 C (96.8 F) or >38.3 C: No SBP <90 or MAP <65 mmHG: No New Acute Mental Status Change: No Is the patient on CPAP, BIPAP,: No Physician Orders Troponin-I Hs (03/03/25 19:53) Electrocardigram (03/03/25 17:53) Electrocardigram (03/03/25 19:53) Continuous Ekg Monitoring 08,12,16,20,00,04 (03/03/25 17:51) Chest Xray 1 View (03/03/25 17:51) Magnesium (03/03/25 20:36) B-Type Natriuretic Peptide (03/03/25 20:36) Hepatic Panel (03/03/25 20:36) Cd4/Cd8 Ratio Profile (03/03/25 20:36) Echo 2d Mode Cardiac Dop (03/03/25 20:36) Hemoglobin A1c (03/03/25 20:36) Drug Screen (03/03/25 20:36) Urinalysis (03/03/25 20:36) Phosphorus (03/03/25 20:36) Thyroid Stimulating Hormone (03/03/25 20:36) Vitamin D, 25-Hydroxy (03/03/25 20:36) Vitamin B12 (03/03/25 20:36) Admit (03/03/25 20:36) Allergies (03/03/25 20:36) Code Status (03/03/25 20:36) Acetaminophen Tablet (Tylenol Tablet) (03/03/25 20:45) Enoxaparin Sodium (Lovenox) (03/04/25 10:00) Complete Blood Count (03/04/25 04:00) Cardiac Diet-2gna,Lofat,Lochol (03/04/25 Breakfast) Condition: Stable (03/03/25 20:36) Stat Ekg For Chest Pain (03/03/25 20:36) Notify Md Of Changes From Base (03/03/25 20:36) Support Worker For 24 Hours (03/03/25 20:36) Emergency Dysrhythmia Protocol (03/03/25 20:36) Rhythm Strips Once Every Shift (03/03/25 20:36) Aspirin Tablet (03/04/25 10:00) Ezetimibe (Zetia) (03/03/25 20:45) Patients Own Medication (03/04/25 10:00) Basic Metabolic Panel (03/04/25 04:00) Vital Signs Date Time Temp Pulse Resp B/P (MAP) Pulse Ox O2 Delivery O2 Flow Rate FiO2 03/03/25 18:10 62 03/03/25 18:10 97.8 62 18 115/71 (86) 98 97.8 03/03/25 18:00 84 03/03/25 16:51 90 03/03/25 16:48 98.8 94 19 119/79 96 98.8 Laboratory Tests Test 03/03/25 17:12 White Blood Count 8.8 10^3/uL (4.4-10.8) Medications Medications Dose Ordered Sig/Marly Route Start Time Stop Time Status Last Admin Dose Admin Aspirin 325 mg ONCE ONCE PO 03/03/25 18:00 03/03/25 18:01 DC 03/03/25 18:08 325 MG Assessment/Plan Assessment/Plan Assessment and Plan: Acute Chest Pain, Rule out ACS Probable pericarditis - EKG: Sinus rhythm with possible early repolarization pattern - Troponins negative - Aspirin 325 mg p.o. once - Aspirin 81 mg PO daily - Ezetimibe 10 mg PO daily (patient states he is intolerant to statins) - Acetaminophen 325 mg PO q4 hours PRN - Ibuprofen 600 mg PO tid PRN - Pending echocardiogram Hyperlipidemia - Ezetimibe 10 mg PO daily - Lipid panel pending Cardiomyopathy? - Echocardiogram ordered for evaluation - Cardiac diet History of WI, patient is unsure if stents were placed Prediabetes - HbA1c pending HIV - CD4/CD8 ratio pending - Patient to continue taking Symtuza Diet: Cardiac DVT prophylaxis: Enoxaparin 40 mg SC daily GI prophylaxis: Not indicated Case discussed with Dr. Gtz Goals of care discussed with the patient for over 24 minutes. FULL CODE. Plan discussed with: Patient, Other (Nurses) My Orders Orders - AFRICA LORENZANA RESIDENT Procedure Category Date Status Time Magnesium LAB 03/03/25 Verified 20:36 B-Type Natriuretic LAB 03/03/25 Verified Peptide 20:36 Hepatic Panel LAB 03/03/25 Verified 20:36 Cd4/Cd8 Ratio Profile LAB 03/03/25 Verified 20:36 Echo 2d Mode Cardiac US 03/03/25 Verified DOP 20:36 Hemoglobin A1c LAB 03/03/25 Verified 20:36 Drug Screen LAB 03/03/25 Verified 20:36 Urinalysis LAB 03/03/25 Verified 20:36 Phosphorus LAB 03/03/25 Verified 20:36 Thyroid Stimulating LAB 03/03/25 Verified Hormone 20:36 Vitamin D, 25-Hydroxy LAB 03/03/25 Verified 20:36 Vitamin B12 LAB 03/03/25 Verified 20:36 Admit ADMIT 03/03/25 Verified 20:36 Allergies KATE 03/03/25 Verified 20:36 Code Status CODE 03/03/25 Verified 20:36 Acetaminophen Tablet PHA 03/03/25 Verified (Tylenol Tablet) 20:45 Enoxaparin Sodium PHA 03/04/25 Verified (Lovenox) 10:00 Complete Blood Count LAB 03/04/25 Verified 04:00 Cardiac DIET 03/04/25 Verified Diet-2gna,Lofat,Lochol Breakfast Condition: Stable KATE 03/03/25 Verified 20:36 Stat Ekg For Chest KATE 03/03/25 Verified Pain 20:36 Notify Md Of Changes KATE 03/03/25 Verified From Base 20:36 Support Worker For [facility] 03/03/25 Verified 24 Hours 20:36 Emergency Dysrhythmia [facility] 03/03/25 Verified Protocol 20:36 Rhythm Strips Once [facility] 03/03/25 Verified Every Shift 20:36 Aspirin Tablet [facility] 03/04/25 Verified 10:00 Ezetimibe (Zetia) [facility] 03/03/25 Verified 20:45 Patients Own [facility] 03/04/25 Verified Medication 10:00 Basic Metabolic Panel LAB 03/04/25 Verified 04:00 Date of Service: Mar 03, 2025 Billing Provider: RICHI GTZ MD Common Visit Codes: [id number] INP/OBS CARE (HIGH) Secondary Visit Codes: [id number] CARE PLAN 30 MINUTES AFRICA LORENZANA RESIDENT Mar 03, 2025 20:56 ALEX GRANGER RESIDENT Mar 04, 2025 02:49
[2025-03-03 21:36] LABS: Alanine Aminotransferase 36 U/L (7-40); Albumin 4.7 g/dL (3.2-4.8); Alkaline Phosphatase 100 U/L (46-116); Bilirubin, Total 0.4 mg/dL (0.2-1.0); Magnesium 2.1 mg/dL (1.6-2.6); Total Protein 7.6 g/dL (5.7-8.2)
[2025-03-03 21:38] LABS: Bilirubin, Direct < 0.1 mg/dL (<0.3)
[2025-03-03 23:10] VITALS: BP 120/87; PULSE 85; RESP 16; TEMP 97.4; O2SAT 98
[2025-03-03 23:46] VITALS: BP 120/87; PULSE 85; TEMP 97; O2SAT 98
[2025-03-04] VITALS (10 sets, daily range): BP systolic 101–125; BP diastolic 64–83; PULSE 64–97; RESP 16–19; TEMP 97.5–98.3; O2SAT 94–97
[2025-03-04] MEDS ORDERED: IBUPROFEN 600 MG TAB PO PRN (02:30)
[2025-03-04 05:47] LABS: Hematocrit 44.4 % (41.0-53.0); Hemoglobin 15.3 g/dL (13.5-17.5); Mean Corpuscular Hemoglobin 34.9 pg (28.0-32.0); Mean Corpuscular Volume 101.4 fL (80.0-100.0); Nucleated Red Blood Cells % 0.1 %
[2025-03-04 05:50] LABS: Potassium 3.7 mmol/L (3.5-5.1); Sodium 142 mmol/L (136-145)
[2025-03-04 05:51] LABS: Anion Gap 11 (5-15); Calcium 8.9 mg/dL (8.7-10.4); Carbon Dioxide 24 mmol/L (20-31)
[2025-03-04 05:53] LABS: Chloride 107 mmol/L (98-107)
[2025-03-04 05:56] LABS: BUN/Creatinine Ratio 18.7 (10.0-20.0); Blood Urea Nitrogen 17 mg/dL (9-23); Glucose 94 mg/dL (74-106)
[2025-03-04 05:58] LABS: Cholesterol 205 mg/dL (< 200); HDL Cholesterol 32 mg/dL (40-59); Triglycerides 405 mg/dL (< 150)
[2025-03-04 07:40] LABS: Urine Protein, UAD Negative (Negative)
[2025-03-04 07:52] LABS: Amphetamine Screen, Urine Neg (NEGATIVE); Barbiturate Scree,Urine Neg (NEGATIVE); Benzodiazephine Screen, Urine Neg (NEGATIVE); Cannabinoid Screen, Urine Neg (NEGATIVE); Cocaine Screen, Urine Neg (NEGATIVE); Opiate Scree,Urine Neg (NEGATIVE); Phencyclidine Screen, Urine Neg (NEGATIVE)
[2025-03-04] MEDS: ENOXAPARIN SOD 40 MG/0.4 ML SYRINGE SC SCH (09:47)
[2025-03-04] MEDS: EZETIMIBE 10 MG TAB PO SCH (09:48)
[2025-03-04] MEDS: SYMTUZA PO SCH (09:54)
--- NOTE | 2025-03-04 12:09 | ECG ---
[facility] Test Date: 2025-03-03 Test Time: 18:00:40 Pat Name: KAREN ALLENODepartment: Room: 0240T B Gender: M Management Analyst: SONNY : 1970 Requested By: KALE MARY Order Number: [id number] Reading MD: Sandoval Kim Measurements Intervals [place] Rate: 84 P: 74 NM: 185 QRS: 89 QRSD: 83 T: 21 QT: 351 QTc: 415 Interpretive Statements Sinus rhythm ST elevation, consider lateral injury Electronically Signed On 03-08-2025 20:27:45 PDT by Sandoval Kim Please click the below link to view image of tracing.
--- NOTE | 2025-03-04 16:08 | DVHINCON2 ---
Date Seen: Mar 04, 2025 Referring Physician MD Mally resident Reason for Consultation Chest pain History of Present Illness This is a Emirati-speaking 54-year-old male patient who presents to emergency room with chief complaint of chest pain. Patient reports that the chest pain began three days prior to emergency room arrival. He describes it as unprovoked, intermittent, pressure-like in nature, left-sided and nonradiating. He denies any associated symptoms. Initial twelve electrocardiogram reveals normal sinus rhythm with early repolarization pattern. Serial troponin levels have been negative. Significant past medical history includes questionable coronary artery disease, previous myocardial infarction, hypertension, dyslipidemia, prediabetes, and HIV. The patient reports that approximately 14 years ago in [facility] he was told that he had a heart attack. He is a poor historian and is unsure what kind of workup was done and does not know if he had any stents placed. The patient does not follow up with a brand manager in the outpatient setting. Past Medical History Past medical history reviewed. No other significant than mentioned above. Past Surgical History Exploratory laparotomy secondary to perforated ulcer Family History: Diabetes mellitus G8 MOTHER G8 FATHER FH: heart disease G8 MOTHER G8 FATHER G8 BROTHER Family History Family history reviewed. Social History Admits to previous cocaine use, quit approximately 15 years ago Previous tobacco use, quit six years ago Denies alcohol use Allergies: Coded Allergies: NO KNOWN ALLERGIES (Unverified , 09/21/22) Home Meds Active Scripts Doxycycline Hyclate (DOXYCYCLINE HYCLATE) 100 Mg Tab, 1 TAB PO BID, #14 TAB Prov:MADHAV FAIR MD 08/03/24 Carisoprodol (Soma) 250 Mg Tab, 250 MG PO Q12HP PRN for 7 Days, #14 TAB Prov:JESSICA GARCIA NP 06/03/24 Acetaminophen (Acetaminophen) 500 Mg Tab, 500 MG PO Q4HP, #30 TAB 0 Refills Prov:MARYLIN AREVALO 05/13/24 Albuterol Sulfate (VENTOLIN COR[place]) 90 Mcg Ih, 90 MCG IN Q4HP PRN for 30 Days, #1 INH Prov:ANTONIO CASANOVA RESIDENT 03/17/24 Oseltamivir Phosphate (Tamiflu) 75 Mg Cap, 75 MG PO Q12HR for 3 Days, #6 CAP Prov:ANTONIO CASANOVA RESIDENT 03/17/24 Ergocalciferol (VITAMIN D 11986 UNIT) 50,000 [place], [address] UNIT PO Q7D for 90 Days, #12 CAP Prov:ANTONIO CASANOVA RESIDENT 03/17/24 Acetaminophen (Acetaminophen) 325 Mg Tab, 650 MG PO Q6HP PRN for 5 Days, #40 TAB Prov:ANTONIO CASANOVA RESIDENT 03/17/24 Reported Medications Carvedilol (Carvedilol) 6.25 Mg Tab, 1 TAB PO DAILY, #180 TAB 1 Refill 06/03/24 Aspirin (Aspir-81) 81 Mg Tab, 1 TAB PO DAILY, #30 TAB 5 Refills 06/03/24 Enalapril Maleate (Enalapril Maleate) 5 Mg Tab, 2 TAB PO DAILY, #30 TAB 5 Refills 06/03/24 Pantoprazole Sodium Sesquihydr (Pantoprazole Sodium) 40 Mg Tab, 1 TAB PO DAILY 03/16/24 Elhmlowtu-Bzzhkkxiou-Vorajabmz (Symtuza [id number] mg) 1 Tab Tab, 1 TAB PO DAILY 03/16/24 Home Meds Home medications reviewed. Current Medications Current Medications Medications (Trade) Dose Ordered Sig/Marly Route PRN Reason Start Time Stop Time Status Last Admin Acetaminophen (Tylenol Tablet) 325 mg Q4HP PRN PO MILD PAIN (1-3 PAIN SCALE) 03/03/25 20:45 Enoxaparin Sodium (Lovenox) 40 mg DAILY SC 03/04/25 10:00 03/04/25 09:47 Aspirin 81 mg DAILY PO 03/04/25 10:00 03/04/25 09:47 EZETIMIBE (Zetia) 10 mg DAILY PO 03/04/25 10:00 03/04/25 09:48 Patient Own Medication 1 DAILY PO 03/04/25 10:00 Ibuprofen (Motrin Tablet) 600 mg Q8HP PRN PO MODERATE PAIN (4-6 PAIN SCALE) 03/04/25 02:30 03/04/25 11:01 DC Patient Own Medication 1 tab DAILY PO 03/05/25 10:00 UNV Review of Systems Constitutional: No symptom reported Ears, Nose, & Throat: No symptom reported Eyes: No symptom reported Neurological: No symptoms reported Pulmonary/Respiratory: No symptoms reported Cardiovascular: Chest pain Gastrointestinal: No symptom reported Genitourinary: No symptom reported Musculoskeletal: No symptom reported Skin: No symptom reported Psychiatric: No symptom reported Endocrine: No symptom reported Hematologic/Lymphatic: No symptom reported Vital Signs Vital Signs Date Time Temp Pulse Resp B/P (MAP) Pulse Ox O2 Delivery O2 Flow Rate FiO2 03/04/25 12:38 98.3 79 18 116/82 (93) 95 98.3 03/04/25 07:45 Room Air* 0 21 Physical Exam General Appearance: Cooperative. Well-developed. Well-nourished. No acute distress. Pulmonary/Respiratory: Clear, bilateral breaths sounds. Cardiovascular/Chest: Regular rate and rhythm. Peripheral Pulses: 2+ Radial (R). 2+ Radial (L). 2+ Pedal (R). 2+ Pedal (L) Abdominal Exam: Normal bowel sounds. Ankle Exam: Negative ankle edema Lower extremities: Negative lower extremity edema Neuro/Mental Status: A/OX4, coherent. Thoughts/Psych: Normal thought pattern. Appropriate mood and affect. Good judgment and insight. Appearance: No acute distress. Skin Exam: Normal inspection. Normal color. Warm and dry. Labs/Diagnostic Data Labs Test 03/04/25 06:45 03/04/25 05:29 03/03/25 22:04 03/03/25 21:11 Range/Units Urine Color Light-yellow Yellow Urine Clarity Clear Clear Urine pH 6.0 5.0-9.0 Urine Specific [place] 1.028 1.001-1.035 Urine Protein Negative Negative Urine Ketones Negative Negative Urine Blood Negative Negative /uL Urine Nitrite Negative Negative Urine Bilirubin Negative Negative Urine Urobilinogen Normal Negative mg/dL Urine Leukocyte Esterase Negative Negative /uL Urine RBC 1 0 - 3 /hpf Urine Microscopic WBC 2 0-3 /HPF Urine Squamous Epithelial Cells None seen <5 /hpf Urine Bacteria None seen None Seen /hpf Urine Mucus Few None Seen Urine Glucose Normal Normal mg/dL Urine Opiates Screen Neg NEGATIVE Urine Fentanyl Screen Neg NEGATIVE Urine Barbiturates Screen Neg NEGATIVE Urine Phencyclidine Screen Neg NEGATIVE Urine Amphetamines Screen Neg NEGATIVE Urine Benzodiazepines Screen Neg NEGATIVE Urine Cocaine Screen Neg NEGATIVE Urine Cannabinoids Screen Neg NEGATIVE White Blood Count 7.4 4.4-10.8 10^3/uL Red Blood Count 4.38 L 4.5-5.90 10^6/uL Hemoglobin 15.3 13.5-17.5 g/dL Hematocrit 44.4 41.0-53.0 % Mean Corpuscular Volume 101.4 H 80.0-100.0 fL Mean Corpuscular Hemoglobin 34.9 H 28.0-32.0 pg Mean Corpuscular Hemoglobin Concent 34.4 32.0-36.0 g/dL Red Cell Distribution Width 13.7 11.8-14.3 % Platelet Count 244 140-450 10^3/uL Mean Platelet Volume 8.9 6.9-10.8 fL Neutrophils (%) (Auto) 49.2 37.0-80.0 % Lymphocytes (%) (Auto) 34.1 10.0-50.0 % Monocytes (%) (Auto) 12.7 H 0.0-12.0 % Eosinophils (%) (Auto) 3.4 0.0-7.0 % Basophils (%) (Auto) 0.6 0.0-2.0 % Neutrophils # (Auto) 3.7 1.6-8.6 10 ^3/uL Lymphocytes # (Auto) 2.5 0.4-5.4 10 ^3/uL Monocytes # (Auto) 0.9 0-1.3 10 ^3/uL Eosinophils # (Auto) 0.3 0-0.8 10 ^3/uL Basophils # (Auto) 0 0-0.2 10 ^3/uL Nucleated Red Blood Cells 0.1 % Erythrocyte Sedimentation Rate 6 0-20 mm/hr Sodium Level 142 136-145 mmol/L Potassium Level 3.7 3.5-5.1 mmol/L Chloride Level 107 98-107 mmol/L Carbon Dioxide Level 24 20-31 mmol/L Anion Gap 11 5-15 Blood Urea Nitrogen 17 9-23 mg/dL Creatinine 0.91 0.700-1.30 mg/dL Glomerular Filtration Rate Calc 100 >90 mL/min BUN/Creatinine Ratio 18.7 10.0-20.0 Serum Glucose 94 74-106 mg/dL Calcium Level 8.9 8.7-10.4 mg/dL C-Reactive Protein High Sensitivity 0.15 <1.0 mg/dL Triglycerides Level 405 H < 150 mg/dL Cholesterol Level 205 H < 200 mg/dL LDL Cholesterol < 100 mg/dL HDL Cholesterol 32 L 40-59 mg/dL Troponin I High Sensitivity < 3 L </=54 ng/L Test 03/03/25 17:12 Range/Units Hemoglobin A1c 5.3 <5.7 % A1C Phosphorus Level 4.2 2.4-5.1 mg/dL Magnesium Level 2.1 1.6-2.6 mg/dL Total Bilirubin 0.4 0.2-1.0 mg/dL Direct Bilirubin < 0.1 <0.3 mg/dL Aspartate Amino Transferase (AST) 41 H 13-40 U/L Alanine Aminotransferase (ALT) 36 7-40 U/L Alkaline Phosphatase 100 46-116 U/L B-Type Natriuretic Peptide 3.66 0-100 pg/mL Total Protein 7.6 5.7-8.2 g/dL Albumin 4.7 3.2-4.8 g/dL Vitamin B12 Level 488 211-911 pg/mL Vitamin D 25-Hydroxy 23.0 L 30.0-100 ng/mL Thyroid Stimulating Hormone (TSH) 0.98 0.55-4.78 uIU/mL Assessment Chest pain, rule out coronary ischemia Rule out structural heart disease Questionable history of coronary artery disease History myocardial infarction Hypertension Dyslipidemia HIV History of substance abuse Plan/Recommendation We will continue with the following plan/recommendations (Dr. Loja): * Transthoracic echocardiogram to evaluate cardiac function * Chest pain protocol * HEART score: 4 points (moderate score) * Single antiplatelet therapy and lipid-lowering agent * Close cardiac surveillance * Nuclear stress test Case discussed with , given patient clinical presentation, past medical history, and elevated HEART score, we will recommend for the patient to undergo a nuclear stress test. We will schedule the patient at soonest availability. Thank you for allowing us to care for this patient. Please call with any questions or concerns. Critical care time spent: 44 minutes This medical document was created using an electronic medical record system with voice recognition software and computerized dictation system. Although this document has been carefully reviewed, there might still be some phonetic and typographical errors. Occasional wrong-word or ``sound-alike substitutions may have occurred due to the inherent limitations of voice recognition software. These areas are purely typographical due to imperfections of the software programs and do not reflect any compromise in the patient's medical care. Please read the chart carefully and recognize, using context, where these substitutions have occurred. Plan discussed with: Patient NYHA Physical activity limitations: NA Date of Service: Mar 04, 2025 Billing Provider: BEATRIS FLORES Cardiology Common Codes: 32702-UIRAQAN INP/OBS CARE (High) Cardiology Consultation Codes: [id number] CONSULT <45MIN BEATRIS FLORES Mar 04, 2025 16:08
--- NOTE | 2025-03-04 18:38 | DVHPNRES ---
Progress Note Date Seen: Mar 04, 2025 Resident Creating Document: TYLER KARIMI RESIDENT Medical Necessity Reason Pt with a Central, PICC or Fol: No Subjective Review of Systems History of Present Illness Mr. Bethea is a 54 year old male with prior medical history of questionable cardiomyopathy, myocardial infarction (he is unsure if he had stents placed), hyperlipidemia, prediabetes, fatty liver, PUD, and HIV, who presents today with chief complaint of chest pain. He reports 3 days of constant pressure-like pain in left pectoral region, 7/10 intensity, non-radiating, in variable functional class, aggravated by laying flat and superficial palpationm and relieved when sitting up, associated with tachycardia and intermittent periods of sharp left pectoral pain described as 10/10 in intensity. Patient report upper respiratory syndromes 1 week ago. He denies nausea, vomiting, diaphoresis, abdominal pain, loss of consciousness, shortness of breath, and other symptoms. Due to persistence of symptoms he sought medical attention in the emergency department. On evaluation in the ED, vitals were stable. Twelve lead EKG shows sinus rhythm with possible early repolarization pattern. Initial labs show CBC and BMP within normal range. Troponins were negative. Chest x-ray shows no acute disease. He was given aspirin and was admitted for further work up and management. Cardiovascular: SD, Other (Cardiomyopathy) GI: Peptic Ulcer disease Hepatobiliary: Other (Hepatic steatosis) Infectious disease: HIV Endocrine: Other (Prediabetes) Past Surgical History: Other (Peptic ulcer repair) Smoke: Quit (States he smoked 1 pack a day for approximately 15-20 years with cessation 6 years ago) ALCOHOL: heavy (Refers he used to drink multiple alcoholic beverages a day and quit approximately 14 years ago) Drugs: Other (Refers previous history of crack use for approximately 8 years with cessation 14 years ago) Domestic Violence: Neg The patient was seen and examined at bedside. He reports improvement in his chest pain mild pressure-like symptoms. He does not have shortness of breaths this morning. No new complaints reported. Objective vital signs Vital Sign Date Time Temp Pulse Resp B/P (MAP) Pulse Ox O2 Delivery O2 Flow Rate FiO2 03/04/25 16:43 97.5 85 16 125/83 (97) 96 97.5 03/04/25 07:45 Room Air* 0 21 Total Intake and Output 03/03/25 03/03/25 03/04/25 15:00 23:00 07:00 Intake Total 250 ml Balance 250 ml medications Current Medications Medications Dose Ordered Sig/Marly Route Start Time Stop Time Status Last Admin Dose Admin Acetaminophen 325 mg Q4HP PRN PO 03/03/25 20:45 Enoxaparin Sodium 40 mg DAILY SC 03/04/25 10:00 03/04/25 09:47 40 MG Aspirin 81 mg DAILY PO 03/04/25 10:00 03/04/25 09:47 81 MG EZETIMIBE 10 mg DAILY PO 03/04/25 10:00 03/04/25 09:48 10 MG Patient Own Medication 1 DAILY PO 03/04/25 10:00 Patient Own Medication 1 tab DAILY PO 03/05/25 10:00 UNV Carvedilol 6.25 mg DAILY PO 03/05/25 10:00 Atorvastatin Calcium 80 mg HS PO 03/04/25 22:00 Examination Pt is lying on bed General Appearance: Alert, Oriented X3, Cooperative, Mild distress HEENT: Atraumatic, Mucous membranes moist/pink Chest wall tenderness present. Respiratory: Clear to auscultation, Normal air movement, No added sounds Cardiovascular: Regular rate, Normal S1, Normal S2, No murmurs Abdominal/ : Active bowel sounds, Soft, no distention, no tenderness Extremities: No edema, Normal pulses, No tenderness/swelling Skin: No Significant rash, except past surgical scars Neuro: Normal speech, sensorimotor deficits none Psych/Mental Status: Mental status NL, Mood NL Nurse was there as technician assistant during examination laboratory and microbiology Laboratory Tests 03/04/25 05:29 Test 03/04/25 05:29 Range/Units Serum Glucose 94 74-106 mg/dL Labs and/or images reviewed: Labs reviewed by me, Image(s) reviewed by me Problem List/Assessment/Plan Problem List/Assessment/Plan Acute Chest Pain, Rule out ACS, likely unstable angina Pericarditis, ruled out History of SD - EKG: Sinus rhythm with possible early repolarization pattern - Troponins negative -ESR normal - Aspirin 325 mg p.o. once - Aspirin 81 mg PO daily - Ezetimibe 10 mg PO daily (patient states he is intolerant to statins) - Acetaminophen 325 mg PO q4 hours PRN - Ibuprofen 600 mg PO tid PRN - transthoracic echocardiogram completed, pending results. -BNP normal -cardiology consultation completed: Chest pain protocol HEART score: 4 points (moderate score) Single antiplatelet therapy and lipid-lowering agent Close cardiac surveillance Nuclear stress test will be scheduled with the availability Hyperlipidemia - Ezetimibe 10 mg PO daily - Lipid panel: hyperlipidemia Vitamin-D deficiency Repleting Cardiomyopathy? - Echocardiogram completed, pending results - Cardiac diet Prediabetes - HbA1c 4.3 HIV - CD4/CD8 ratio pending till 03/04/2025 - Patient to continue taking Symtuza GI prophylaxis: Pantoprazole DVT prophylaxis: Lovenox Diet: Cardiac Goals of care discussed with the patient for more than 27 minutes: Full code status Case discussed with , patient and RN Plan discussed with: Patient, Other (RN) My Orders My Orders Orders - TYLER KARIMI RESIDENT Procedure Category Date Status Time * Cardiology Consult CONS 03/04/25 Transmitted 12:57 Date of Service: Mar 04, 2025 Billing Provider: DUSTIN ALCAZAR MD Common Visit Codes: [id number] INP/OBS CARE(HIGH) TYLER KARIMI RESIDENT Mar 04, 2025 18:38 ANTONIO CASANOVA RESIDENT Mar 05, 2025 16:25 DUSTIN ALCAZAR MD Mar 08, 2025 20:41
[2025-03-04] MEDS: ERGOCALCIFEROL 50,000 UNIT(1.25MG) CAP PO SCH (20:01)
[2025-03-04] MEDS: ATORVASTATIN 20 MG TAB PO SCH (21:30)
--- NOTE | 2025-03-04 23:36 | DVHINCON2 ---
Date Seen: Mar 04, 2025 Referring Physician MD Mally resident Reason for Consultation Chest pain History of Present Illness This is a English-speaking 54-year-old male with a PMH of questionable coronary artery disease, previous myocardial infarction, hypertension, dyslipidemia, prediabetes, and HIV who presents to emergency room with a complaint of chest pain. Patient reports that the chest pain began three days prior to emergency room arrival. He describes it as unprovoked, intermittent, pressure-like in nature, left-sided and nonradiating. He denies any associated symptoms. Initial twelve electrocardiogram reveals normal sinus rhythm with early repolarization pattern. Serial troponin levels have been negative. The patient reports that approximately 14 years ago in [facility] he was told that he had a heart attack. He is a poor historian and is unsure what kind of workup was done and does not know if he had any stents placed. 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 Patient was admitted to the hospital. I am asked to consult on this patient. Past Medical History Past medical history reviewed. No other significant than mentioned above. Past Surgical History Exploratory laparotomy secondary to perforated ulcer Family History: Diabetes mellitus G8 MOTHER G8 FATHER FH: heart disease G8 MOTHER G8 FATHER G8 BROTHER Allergies: Coded Allergies: NO KNOWN ALLERGIES (Unverified , 09/21/22) Home Meds Active Scripts Doxycycline Hyclate (DOXYCYCLINE HYCLATE) 100 Mg Tab, 1 TAB PO BID, #14 TAB Prov:MADHAV FAIR MD 08/03/24 Carisoprodol (Soma) 250 Mg Tab, 250 MG PO Q12HP PRN for 7 Days, #14 TAB Prov:JESSICA GARCIA NP 06/03/24 Acetaminophen (Acetaminophen) 500 Mg Tab, 500 MG PO Q4HP, #30 TAB 0 Refills Prov:MARYLIN AREVALO 05/13/24 Albuterol Sulfate (VENTOLIN MDI) 90 Mcg Ih, 90 MCG IN Q4HP PRN for 30 Days, #1 INH Prov:ANTONIO CASANOVA RESIDENT 03/17/24 Oseltamivir Phosphate (Tamiflu) 75 Mg Cap, 75 MG PO Q12HR for 3 Days, #6 CAP Prov:ANTONIO CASANOVA RESIDENT 03/17/24 Ergocalciferol (VITAMIN D 81074 UNIT) 50,000 [place], [address] UNIT PO Q7D for 90 Days, #12 CAP Prov:ANTONIO CASANOVA RESIDENT 03/17/24 Acetaminophen (Acetaminophen) 325 Mg Tab, 650 MG PO Q6HP PRN for 5 Days, #40 TAB Prov:ANTONIO CASANOVA RESIDENT 03/17/24 Reported Medications Carvedilol (Carvedilol) 6.25 Mg Tab, 1 TAB PO DAILY, #180 TAB 1 Refill 06/03/24 Aspirin (Aspir-81) 81 Mg Tab, 1 TAB PO DAILY, #30 TAB 5 Refills 06/03/24 Enalapril Maleate (Enalapril Maleate) 5 Mg Tab, 2 TAB PO DAILY, #30 TAB 5 Refills 06/03/24 Pantoprazole Sodium Sesquihydr (Pantoprazole Sodium) 40 Mg Tab, 1 TAB PO DAILY 03/16/24 Egawijdun-Cbvcgkouqs-Njpnaropl (Symtuza [phone] mg) 1 Tab Tab, 1 TAB PO DAILY 03/16/24 Current Medications Current Medications Medications (Trade) Dose Ordered Sig/Marly Route PRN Reason Start Time Stop Time Status Last Admin Enoxaparin Sodium (Lovenox) 40 mg DAILY SC 03/04/25 10:00 03/04/25 09:47 Aspirin 81 mg DAILY PO 03/04/25 10:00 03/04/25 09:47 EZETIMIBE (Zetia) 10 mg DAILY PO 03/04/25 10:00 03/04/25 09:48 Patient Own Medication 1 DAILY PO 03/04/25 10:00 Ibuprofen (Motrin Tablet) 600 mg Q8HP PRN PO MODERATE PAIN (4-6 PAIN SCALE) 03/04/25 02:30 03/04/25 11:01 DC Patient Own Medication 1 tab DAILY PO 03/05/25 10:00 UNV Carvedilol (Coreg Tablet) 6.25 mg DAILY PO 03/05/25 10:00 Atorvastatin Calcium (Lipitor) 80 mg HS PO 03/04/25 22:00 03/04/25 21:30 Ergocalciferol (Vitamin D 50,000 Unit) 50,000 unit Q7D PO 03/04/25 19:00 03/04/25 20:01 Review of Systems Constitutional: No symptom reported Ears, Nose, & Throat: No symptom reported Eyes: No symptom reported Neurological: No symptoms reported Pulmonary/Respiratory: No symptoms reported Cardiovascular: Chest pain Gastrointestinal: No symptom reported Genitourinary: No symptom reported Musculoskeletal: No symptom reported Skin: No symptom reported Psychiatric: No symptom reported Endocrine: No symptom reported Hematologic/Lymphatic: No symptom reported Vital Signs Vital Signs Date Time Temp Pulse Resp B/P (MAP) Pulse Ox O2 Delivery O2 Flow Rate FiO2 03/04/25 21:00 98.1 89 19 111/72 (85) 94 98.1 03/04/25 20:00 Room Air* 0 21 Physical Exam GENERAL: Alert and oriented x 3. No acute distress. EYES: PERRL, EOMI. Anicteric. HENT: Moist mucous membranes. LUNGS: Clear to auscultation bilaterally. CARDIOVASCULAR: Regular rate and rhythm. ABDOMEN: Soft, non-tender and non-distended. EXTREMITIES: No edema. NEUROLOGIC: No focal neurological deficits. SKIN: Warm, dry. Labs/Diagnostic Data Labs Test 03/04/25 06:45 03/04/25 05:29 03/03/25 22:04 03/03/25 21:11 Range/Units Urine Color Light-yellow Yellow Urine Clarity Clear Clear Urine pH 6.0 5.0-9.0 Urine Specific [place] 1.028 1.001-1.035 Urine Protein Negative Negative Urine Ketones Negative Negative Urine Blood Negative Negative /uL Urine Nitrite Negative Negative Urine Bilirubin Negative Negative Urine Urobilinogen Normal Negative mg/dL Urine Leukocyte Esterase Negative Negative /uL Urine RBC 1 0 - 3 /hpf Urine Microscopic WBC 2 0-3 /HPF Urine Squamous Epithelial Cells None seen <5 /hpf Urine Bacteria None seen None Seen /hpf Urine Mucus Few None Seen Urine Glucose Normal Normal mg/dL Urine Opiates Screen Neg NEGATIVE Urine Fentanyl Screen Neg NEGATIVE Urine Barbiturates Screen Neg NEGATIVE Urine Phencyclidine Screen Neg NEGATIVE Urine Amphetamines Screen Neg NEGATIVE Urine Benzodiazepines Screen Neg NEGATIVE Urine Cocaine Screen Neg NEGATIVE Urine Cannabinoids Screen Neg NEGATIVE White Blood Count 7.4 4.4-10.8 10^3/uL Red Blood Count 4.38 L 4.5-5.90 10^6/uL Hemoglobin 15.3 13.5-17.5 g/dL Hematocrit 44.4 41.0-53.0 % Mean Corpuscular Volume 101.4 H 80.0-100.0 fL Mean Corpuscular Hemoglobin 34.9 H 28.0-32.0 pg Mean Corpuscular Hemoglobin Concent 34.4 32.0-36.0 g/dL Red Cell Distribution Width 13.7 11.8-14.3 % Platelet Count 244 140-450 10^3/uL Mean Platelet Volume 8.9 6.9-10.8 fL Neutrophils (%) (Auto) 49.2 37.0-80.0 % Lymphocytes (%) (Auto) 34.1 10.0-50.0 % Monocytes (%) (Auto) 12.7 H 0.0-12.0 % Eosinophils (%) (Auto) 3.4 0.0-7.0 % Basophils (%) (Auto) 0.6 0.0-2.0 % Neutrophils # (Auto) 3.7 1.6-8.6 10 ^3/uL Lymphocytes # (Auto) 2.5 0.4-5.4 10 ^3/uL Monocytes # (Auto) 0.9 0-1.3 10 ^3/uL Eosinophils # (Auto) 0.3 0-0.8 10 ^3/uL Basophils # (Auto) 0 0-0.2 10 ^3/uL Nucleated Red Blood Cells 0.1 % Erythrocyte Sedimentation Rate 6 0-20 mm/hr Sodium Level 142 136-145 mmol/L Potassium Level 3.7 3.5-5.1 mmol/L Chloride Level 107 98-107 mmol/L Carbon Dioxide Level 24 20-31 mmol/L Anion Gap 11 5-15 Blood Urea Nitrogen 17 9-23 mg/dL Creatinine 0.91 0.700-1.30 mg/dL Glomerular Filtration Rate Calc 100 >90 mL/min BUN/Creatinine Ratio 18.7 10.0-20.0 Serum Glucose 94 74-106 mg/dL Calcium Level 8.9 8.7-10.4 mg/dL C-Reactive Protein High Sensitivity 0.15 <1.0 mg/dL Triglycerides Level 405 H < 150 mg/dL Cholesterol Level 205 H < 200 mg/dL LDL Cholesterol < 100 mg/dL HDL Cholesterol 32 L 40-59 mg/dL Troponin I High Sensitivity < 3 L </=54 ng/L Test 03/03/25 17:12 Range/Units Hemoglobin A1c 5.3 <5.7 % A1C Phosphorus Level 4.2 2.4-5.1 mg/dL Magnesium Level 2.1 1.6-2.6 mg/dL Total Bilirubin 0.4 0.2-1.0 mg/dL Direct Bilirubin < 0.1 <0.3 mg/dL Aspartate Amino Transferase (AST) 41 H 13-40 U/L Alanine Aminotransferase (ALT) 36 7-40 U/L Alkaline Phosphatase 100 46-116 U/L B-Type Natriuretic Peptide 3.66 0-100 pg/mL Total Protein 7.6 5.7-8.2 g/dL Albumin 4.7 3.2-4.8 g/dL Vitamin B12 Level 488 211-911 pg/mL Vitamin D 25-Hydroxy 23.0 L 30.0-100 ng/mL Thyroid Stimulating Hormone (TSH) 0.98 0.55-4.78 uIU/mL Assessment Chest pain, rule out coronary ischemia. Rule out structural heart disease. Questionable history of coronary artery disease. History myocardial infarction. Hypertension. Dyslipidemia. HIV. History of substance abuse. Plan/Recommendation I agree with your ongoing assessment and care of plan. Patient has been seen by Jesika Quiñones NP on my behalf. We have discussed the plan with the patient. Transthoracic echocardiogram to evaluate cardiac function. Chest pain protocol. HEART score: 4 points (moderate score). Single antiplatelet therapy and lipid-lowering agent. Close cardiac surveillance. Nuclear stress test. Additional plan as per the hospital course. Plan discussed with: Patient NYHA Physical activity limitations: NA Date of Service: Mar 04, 2025 Billing Provider: HYUN PARRY MD Cardiology Common Codes: [id number] INP/OBS CARE (High) Cardiology Consultation Codes: [id number] CONSULT <45MIN HYUN PARRY MD Mar 04, 2025 23:36
[2025-03-05] VITALS (8 sets, daily range): BP systolic 106–117; BP diastolic 48–83; PULSE 72–92; RESP 16–18; TEMP 97.4–98.2; O2SAT 95–98
[2025-03-05 06:07] LABS: Hematocrit 47.8 % (37.5-51.0); Hemoglobin 15.9 g/dL (13.0-17.7); MCH 34.6 pg (26.6-33.0); MCHC 33.3 g/dL (31.5-35.7); MCV 104 fL (79-97); RBC 4.60 x10E6/uL (4.14-5.80); RDW 13.6 % (11.6-15.4); WBC 8.8 x10E3/uL (3.4-10.8)
[2025-03-05 06:19] LABS: Hematocrit 46.7 % (41.0-53.0); Hemoglobin 16.1 g/dL (13.5-17.5); Mean Corpuscular Hemoglobin 34.7 pg (28.0-32.0); Mean Corpuscular Volume 100.8 fL (80.0-100.0); Nucleated Red Blood Cells % 0.1 %
[2025-03-05 06:26] LABS: Anion Gap 12 (5-15); Carbon Dioxide 24 mmol/L (20-31); Chloride 105 mmol/L (98-107); Potassium 3.9 mmol/L (3.5-5.1); Sodium 141 mmol/L (136-145)
[2025-03-05 06:27] LABS: Calcium 9.2 mg/dL (8.7-10.4)
[2025-03-05 06:32] LABS: BUN/Creatinine Ratio 16.1 (10.0-20.0); Blood Urea Nitrogen 14 mg/dL (9-23); Glucose 99 mg/dL (74-106)
[2025-03-05] MEDS: REGADENOSON 0.4 MG/5 ML SYRG IV ONE ×2 (09:33→09:44)
[2025-03-05] MEDS ORDERED: PATIENTS OWN MEDICATION (Carvedilol 1 TAB) PO SCH (10:00)
--- NOTE | 2025-03-05 10:22 | DVHSR ---
APPROVED REPORT EXAM: Two-dimensional and M-mode echocardiogram with Doppler and color Doppler. Blood Pressure: 107/72 mmHg INDICATION Eval EF RISK FACTORS Height: 66, Weight: 169 DIMENSIONS LVDd4.5 (3.8-5.7cm)LA (2D)3.7 (1.9-4.0cm)Aortic Root3.7 (2.0-3.7cm) LVDs3.3 (2.5-4.0cm)LA (MM) (1.9-4.0cm)Aortic Cusp Exc1.8 (1.5-2.0cm) EF (%) 52.0 (55-70%)Rt. Atrium3.9 (1.9-4.0cm)Asc. Aorta cm IVSd1.0 (0.7-1.1cm)RV (D) (1.8-2.4cm) PWd1.1 (0.7-1.1cm) Mitral Valve MitralMitral Stenosis E wave0.48m/sMV Mean GR.mmHg A wave0.57m/sMV Peak GR.mmHg E/A ratio0.82D MVAcm2 DECEL [id number] 1/2 Aolo84ml IVRTmsDop MVA3.36cm2 Aortic Valve Aortic ValveAortic Stenosis V10.82m/Loyda Mean GR.4mmHg V21.30m/Loyda Peak GR.7mmHg Pulmonic Valve V20.93m/s Tricuspid Valve TR Velocity1.68m/s [id number] Conclusion MILD LVH AND MILD LV DIASTOLIC DYSFUNCTION LV EF IS 65% NORMAL VALVES NO EFFUSION
[2025-03-05 13:08] LABS: CD4/CD8 Ratio 0.60 (0.92-3.72)
[2025-03-05] MEDS: CARVEDILOL 3.125 MG TAB PO SCH (13:22)
--- NOTE | 2025-03-05 19:23 | DVHPNRES ---
Progress Note Date Seen: Mar 05, 2025 Resident Creating Document: TYLER KARIMI RESIDENT Medical Necessity Reason Pt with a Central, PICC or Fol: No Subjective Review of Systems Mr. Bethea is a 54 year old male with prior medical history of questionable cardiomyopathy, myocardial infarction (he is unsure if he had stents placed), hyperlipidemia, prediabetes, fatty liver, PUD, and HIV, who presents today with chief complaint of chest pain. He reports 3 days of constant pressure-like pain in left pectoral region, 7/10 intensity, non-radiating, in variable functional class, aggravated by laying flat and superficial palpationm and relieved when sitting up, associated with tachycardia and intermittent periods of sharp left pectoral pain described as 10/10 in intensity. Patient report upper respiratory syndromes 1 week ago. He denies nausea, vomiting, diaphoresis, abdominal pain, loss of consciousness, shortness of breath, and other symptoms. Due to persistence of symptoms he sought medical attention in the emergency department. On evaluation in the ED, vitals were stable. Twelve lead EKG shows sinus rhythm with possible early repolarization pattern. Initial labs show CBC and BMP within normal range. Troponins were negative. Chest x-ray shows no acute disease. He was given aspirin and was admitted for further work up and management. Cardiovascular: [place], Other (Cardiomyopathy) GI: Peptic Ulcer disease Hepatobiliary: Other (Hepatic steatosis) Infectious disease: HIV Endocrine: Other (Prediabetes) Past Surgical History: Other (Peptic ulcer repair) Smoke: Quit (States he smoked 1 pack a day for approximately 15-20 years with cessation 6 years ago) ALCOHOL: heavy (Refers he used to drink multiple alcoholic beverages a day and quit approximately 14 years ago) Drugs: Other (Refers previous history of crack use for approximately 8 years with cessation 14 years ago) Domestic Violence: Neg The patient was seen and examined at bedside. He denies any chest pain, shortness of breath, fever, or any other complaints today. He reports improvement in all his symptoms. Objective vital signs Vital Sign Date Time Temp Pulse Resp B/P (MAP) Pulse Ox O2 Delivery O2 Flow Rate FiO2 03/05/25 16:57 98.0 92 18 117/48 (71) 96 98.0 03/05/25 08:00 Room Air* 0 21 Total Intake and Output 03/04/25 03/04/25 03/05/25 15:00 23:00 07:00 Intake Total 550 ml Balance 550 ml medications Current Medications Medications Dose Ordered Sig/Marly Route Start Time Stop Time Status Last Admin Dose Admin Acetaminophen 325 mg Q4HP PRN PO 03/03/25 20:45 Enoxaparin Sodium 40 mg DAILY SC 03/04/25 10:00 03/05/25 13:21 40 MG Aspirin 81 mg DAILY PO 03/04/25 10:00 03/05/25 13:22 81 MG Patient Own Medication 1 DAILY PO 03/04/25 10:00 Patient Own Medication 1 tab DAILY PO 03/05/25 10:00 UNV Carvedilol 6.25 mg DAILY PO 03/05/25 10:00 03/05/25 13:22 6.25 MG Ergocalciferol 50,000 unit Q7D PO 03/04/25 19:00 03/04/25 20:01 50,000 UNIT Atorvastatin Calcium 40 mg HS PO 03/05/25 22:00 Examination Pt is lying on bed General Appearance: Alert, Oriented X3, Cooperative, Mild distress HEENT: Atraumatic, Mucous membranes moist/pink Respiratory: Clear to auscultation, Normal air movement, No added sounds Cardiovascular: Regular rate, Normal S1, Normal S2, No murmurs Abdominal/ : Active bowel sounds, Soft, no distention, no tenderness Extremities: No edema, Normal pulses, No tenderness/swelling Skin: No Significant rash, except past surgical scars Neuro: Normal speech, sensorimotor deficits none Psych/Mental Status: Mental status NL, Mood NL Nurse was there as medical reimbursement manager during examination laboratory and microbiology Laboratory Tests 03/05/25 05:30 Test 03/05/25 05:30 Range/Units Serum Glucose 99 74-106 mg/dL Labs and/or images reviewed: Labs reviewed by me, Image(s) reviewed by me Problem List/Assessment/Plan Problem List/Assessment/Plan Problem List/Assessment/Plan Acute Chest Pain, Rule out ACS, likely unstable angina Pericarditis, ruled out History of [place] Cardiomyopathy? - EKG: Sinus rhythm with possible early repolarization pattern - Troponins negative -ESR normal - Aspirin 325 mg p.o. once - Aspirin 81 mg PO daily -Carvedilol 6.25 - Ezetimibe 10 mg PO daily (patient states he is intolerant to statins) - Acetaminophen 325 mg PO q4 hours PRN - Ibuprofen 600 mg PO tid PRN -BNP normal -cardiology consultation completed: Chest pain protocol HEART score: 4 points (moderate score) Single antiplatelet therapy and lipid-lowering agent Close cardiac surveillance - transthoracic echocardiogram: Mild LVH and mild LV diastolic dysfunction, LV ejection fraction 65%, normal valves, no effusion -stress echocardiogram: Completed, results pending Hyperlipidemia - Ezetimibe 10 mg PO daily - Lipid panel: hyperlipidemia Vitamin-D deficiency Repleting Prediabetes - HbA1c 4.3 HIV - CD4/CD8 ratio pending till 03/04/2025 - Patient to continue taking Symtuza GI prophylaxis: Pantoprazole DVT prophylaxis: Lovenox Diet: Cardiac Goals of care discussed with the patient for more than 27 minutes: Full code status Case discussed with , patient and RN Plan discussed with: Patient, Other (RN) Plan discussed with: Patient, Other (RN) Date of Service: Mar 05, 2025 Billing Provider: DUSTIN ALCAZAR MD Common Visit Codes: [id number] INP/OBS CARE(HIGH) TYLER KARIMI RESIDENT Mar 05, 2025 19:23 DUSTIN ALCAZAR MD Mar 08, 2025 20:41
[2025-03-05] MEDS: ATORVASTATIN 20 MG TAB PO SCH (21:48)
--- NOTE | 2025-03-05 23:16 | DVHPN2 ---
Progress Note - Dictate Date Seen: Mar 05, 2025 Medical Necessity Reason Pt with a Central, PICC or Fol: No Subjective Patient was seen and evaluated in follow up. Patient denies any new complaints. CBC and CMP are WNL. Echocardiogram shows an EF of 65%. Telemetry reviewed. vital signs Vital Sign Date Time Temp Pulse Resp B/P (MAP) Pulse Ox O2 Delivery O2 Flow Rate FiO2 03/05/25 14:22 76 128/68 03/05/25 12:33 97.4 18 97 97.4 03/05/25 08:00 Room Air* 0 21 Total Intake and Output 03/04/25 03/04/25 03/05/25 15:00 23:00 07:00 Intake Total 550 ml Balance 550 ml medications Current Medications Medications Dose Ordered Sig/Marly Route Start Time Stop Time Status Last Admin Dose Admin Acetaminophen 325 mg Q4HP PRN PO 03/03/25 20:45 Enoxaparin Sodium 40 mg DAILY SC 03/04/25 10:00 03/05/25 13:21 40 MG Aspirin 81 mg DAILY PO 03/04/25 10:00 03/05/25 13:22 81 MG Patient Own Medication 1 DAILY PO 03/04/25 10:00 Patient Own Medication 1 tab DAILY PO 03/05/25 10:00 UNV Carvedilol 6.25 mg DAILY PO 03/05/25 10:00 03/05/25 13:22 6.25 MG Ergocalciferol 50,000 unit Q7D PO 03/04/25 19:00 03/04/25 20:01 50,000 UNIT Atorvastatin Calcium 40 mg HS PO 03/05/25 22:00 objective GENERAL: Alert and oriented x 3. No acute distress. EYES: PERRL, EOMI. Anicteric. HENT: Moist mucous membranes. LUNGS: Clear to auscultation bilaterally. CARDIOVASCULAR: Regular rate and rhythm. ABDOMEN: Soft, non-tender and non-distended. EXTREMITIES: No edema. NEUROLOGIC: No focal neurological deficits. SKIN: Warm, dry. laboratory and microbiology Laboratory Tests 03/05/25 05:30 Test 03/05/25 05:30 Range/Units Serum Glucose 99 74-106 mg/dL Problem List Chest pain, rule out coronary ischemia. Rule out structural heart disease. Questionable history of coronary artery disease. History myocardial infarction. Hypertension. Dyslipidemia. HIV. History of substance abuse. Assessment/Plan Continued all current supportive medical care. Aspirin, Lipitor. Coreg. DVT prophylactics. Additional plan as per the hospital course. Plan discussed with: Patient HYUN PARRY MD Mar 05, 2025 14:59
[2025-03-06 01:00] VITALS: BP 104/71; PULSE 82; RESP 16; TEMP 97.6; O2SAT 97
[2025-03-06 05:57] LABS: Hemoglobin 15.6 g/dL (13.5-17.5); Nucleated Red Blood Cells % 0.0 %
[2025-03-06 06:00] LABS: Anion Gap 12 (5-15); Carbon Dioxide 25 mmol/L (20-31); Chloride 105 mmol/L (98-107); Hematocrit 44.4 % (41.0-53.0); Mean Corpuscular Hemoglobin 35.4 pg (28.0-32.0); Mean Corpuscular Volume 100.9 fL (80.0-100.0); Potassium 3.9 mmol/L (3.5-5.1); Sodium 142 mmol/L (136-145)
[2025-03-06 06:01] LABS: Calcium 9.2 mg/dL (8.7-10.4)
[2025-03-06 06:06] LABS: BUN/Creatinine Ratio 12.4 (10.0-20.0); Blood Urea Nitrogen 12 mg/dL (9-23); Glucose 102 mg/dL (74-106)
[2025-03-06 08:00] VITALS: PULSE 68; RESP 18
[2025-03-06 09:00] VITALS: BP 128/78; PULSE 75; RESP 20; TEMP 98.1; O2SAT 93
[2025-03-06] MEDS: PANTOPRAZOLE 40 MG TAB PO SCH (10:00)
[2025-03-06 13:00] VITALS: BP 101/69; PULSE 80; RESP 20; TEMP 97.6; O2SAT 95
[2025-03-06 17:00] VITALS: BP 109/78; PULSE 81; RESP 21; TEMP 98; O2SAT 97
[2025-03-06] MEDS ORDERED: ATOR20TA50 PO (17:13)
[2025-03-06] MEDS ORDERED: ASPI1TAB20 PO (17:13)
--- NOTE | 2025-03-06 19:30 | DVHPNRES ---
Progress Note Date Seen: Mar 06, 2025 Resident Creating Document: TYLER KARIMI RESIDENT Medical Necessity Reason Pt with a Central, PICC or Fol: No Objective vital signs Vital Sign Date Time Temp Pulse Resp B/P (MAP) Pulse Ox O2 Delivery O2 Flow Rate FiO2 03/06/25 17:00 98.0 81 21 109/78 (88) 97 98.0 03/06/25 08:00 Room Air* 0 21 Total Intake and Output 03/05/25 03/05/25 03/06/25 15:00 23:00 07:00 Intake Total 500 ml 1050 ml Balance 500 ml 1050 ml medications Current Medications Medications Dose Ordered Sig/Marly Route Start Time Stop Time Status Last Admin Dose Admin Acetaminophen 325 mg Q4HP PRN PO 03/03/25 20:45 Enoxaparin Sodium 40 mg DAILY SC 03/04/25 10:00 03/06/25 10:34 40 MG Aspirin 81 mg DAILY PO 03/04/25 10:00 03/06/25 10:33 81 MG Patient Own Medication 1 DAILY PO 03/04/25 10:00 Patient Own Medication 1 tab DAILY PO 03/05/25 10:00 UNV Carvedilol 6.25 mg DAILY PO 03/05/25 10:00 03/06/25 10:33 6.25 MG Ergocalciferol 50,000 unit Q7D PO 03/04/25 19:00 03/04/25 20:01 50,000 UNIT Atorvastatin Calcium 40 mg HS PO 03/05/25 22:00 03/05/25 21:48 40 MG Pantoprazole Sodium 40 mg DAILY PO 03/06/25 10:00 laboratory and microbiology Laboratory Tests 03/06/25 05:13 Test 03/06/25 05:13 Range/Units Serum Glucose 102 74-106 mg/dL Problem List/Assessment/Plan Problem List/Assessment/Plan Problem List/Assessment/Plan Acute Chest Pain, Rule out ACS, likely unstable angina Pericarditis, ruled out History of [place] Cardiomyopathy? - EKG: Sinus rhythm with possible early repolarization pattern - Troponins negative -ESR normal - Aspirin 325 mg p.o. once - Aspirin 81 mg PO daily -Carvedilol 6.25 - Ezetimibe 10 mg PO daily (patient states he is intolerant to statins) - Acetaminophen 325 mg PO q4 hours PRN - Ibuprofen 600 mg PO tid PRN -BNP normal -cardiology consultation completed: Chest pain protocol HEART score: 4 points (moderate score) Single antiplatelet therapy and lipid-lowering agent Close cardiac surveillance - transthoracic echocardiogram: Mild LVH and mild LV diastolic dysfunction, LV ejection fraction 65%, normal valves, no effusion -stress echocardiogram: Completed, results pending Hyperlipidemia - Ezetimibe 10 mg PO daily - Lipid panel: hyperlipidemia Vitamin-D deficiency Repleting Prediabetes - HbA1c 4.3 HIV - CD4/CD8 ratio pending till 03/04/2025 - Patient to continue taking Symtuza GI prophylaxis: Pantoprazole DVT prophylaxis: Lovenox Diet: Cardiac Goals of care discussed with the patient for more than 27 minutes: Full code status Case discussed with , patient and RN Plan discussed with: Patient, Other (RN) My Orders My Orders Orders - TYLER KARIMI Procedure Category Date Status Time Schedule For Dc [facility] 03/06/25 In Process Clinic F/U 17:37 TYLER KARIMI Mar 06, 2025 19:30
[2025-03-06 21:00] VITALS: BP 121/79; PULSE 86; RESP 16; TEMP 98; O2SAT 96
--- NOTE | 2025-03-06 23:59 | DVHPN2 ---
Progress Note - Dictate Date Seen: Mar 06, 2025 Medical Necessity Reason Pt with a Central, PICC or Fol: No Subjective Patient was seen and evaluated in follow up. Patient has no new complaints at this time. Patient denies any cardiac symptoms. Patient is cardiac stable for discharge. Telemetry reviewed. vital signs Vital Sign Date Time Temp Pulse Resp B/P (MAP) Pulse Ox O2 Delivery O2 Flow Rate FiO2 03/06/25 13:00 97.6 80 20 101/69 (80) 95 97.6 03/06/25 08:00 Room Air* 0 21 Total Intake and Output 03/05/25 03/05/25 03/06/25 15:00 23:00 07:00 Intake Total 500 ml 1050 ml Balance 500 ml 1050 ml medications Current Medications Medications Dose Ordered Sig/Marly Route Start Time Stop Time Status Last Admin Dose Admin Acetaminophen 325 mg Q4HP PRN PO 03/03/25 20:45 Enoxaparin Sodium 40 mg DAILY SC 03/04/25 10:00 03/06/25 10:34 40 MG Aspirin 81 mg DAILY PO 03/04/25 10:00 03/06/25 10:33 81 MG Patient Own Medication 1 DAILY PO 03/04/25 10:00 Patient Own Medication 1 tab DAILY PO 03/05/25 10:00 UNV Carvedilol 6.25 mg DAILY PO 03/05/25 10:00 03/06/25 10:33 6.25 MG Ergocalciferol 50,000 unit Q7D PO 03/04/25 19:00 03/04/25 20:01 50,000 UNIT Atorvastatin Calcium 40 mg HS PO 03/05/25 22:00 03/05/25 21:48 40 MG Pantoprazole Sodium 40 mg DAILY PO 03/06/25 10:00 objective GENERAL: Alert and oriented x 3. No acute distress. EYES: PERRL, EOMI. Anicteric. HENT: Moist mucous membranes. LUNGS: Clear to auscultation bilaterally. CARDIOVASCULAR: Regular rate and rhythm. ABDOMEN: Soft, non-tender and non-distended. EXTREMITIES: No edema. NEUROLOGIC: No focal neurological deficits. SKIN: Warm, dry. laboratory and microbiology Laboratory Tests 03/06/25 05:13 Test 03/06/25 05:13 Range/Units Serum Glucose 102 74-106 mg/dL Problem List Chest pain, rule out coronary ischemia. Rule out structural heart disease. Questionable history of coronary artery disease. History myocardial infarction. Hypertension. Dyslipidemia. HIV. History of substance abuse. Assessment/Plan Continued all current supportive medical care. Aspirin. Coreg. GI and DVT prophylactics. Tylenol for pain management. Additional plan as per the hospital course. Plan discussed with: Patient HYUN PARRY MD Mar 06, 2025 15:13
--- NOTE | 2025-03-07 14:48 | DVHDSRES ---
Discharge Summary Date of Admission Resident Creating Document: TYLER KARIMI Mar 03, 2025 at 20:36 Date of Discharge: Mar 06, 2025 Admitting Diagnosis ACS Labs/Diagnostic Data: Laboratory Results Test 03/06/25 05:13 03/04/25 06:45 03/04/25 05:29 03/03/25 22:04 White Blood Count 8.2 10^3/uL (4.4-10.8) Red Blood Count 4.40 10^6/uL (4.5-5.90) Hemoglobin 15.6 g/dL (13.5-17.5) Hematocrit 44.4 % (41.0-53.0) Mean Corpuscular Volume 100.9 fL (80.0-100.0) Mean Corpuscular Hemoglobin 35.4 pg (28.0-32.0) Mean Corpuscular Hemoglobin Concent 35.1 g/dL (32.0-36.0) Red Cell Distribution Width 13.7 % (11.8-14.3) Platelet Count 232 10^3/uL (140-450) Mean Platelet Volume 9.2 fL (6.9-10.8) Neutrophils (%) (Auto) 51.3 % (37.0-80.0) Lymphocytes (%) (Auto) 33.1 % (10.0-50.0) Monocytes (%) (Auto) 12.3 % (0.0-12.0) Eosinophils (%) (Auto) 2.9 % (0.0-7.0) Basophils (%) (Auto) 0.4 % (0.0-2.0) Neutrophils # (Auto) 4.2 10 ^3/uL (1.6-8.6) Lymphocytes # (Auto) 2.7 10 ^3/uL (0.4-5.4) Monocytes # (Auto) 1.0 10 ^3/uL (0-1.3) Eosinophils # (Auto) 0.2 10 ^3/uL (0-0.8) Basophils # (Auto) 0 10 ^3/uL (0-0.2) Nucleated Red Blood Cells 0.0 % Sodium Level 142 mmol/L (136-145) Potassium Level 3.9 mmol/L (3.5-5.1) Chloride Level 105 mmol/L (98-107) Carbon Dioxide Level 25 mmol/L (20-31) Anion Gap 12 (5-15) Blood Urea Nitrogen 12 mg/dL (9-23) Creatinine 0.97 mg/dL (0.700-1.30) Glomerular Filtration Rate Calc 93 mL/min (>90) BUN/Creatinine Ratio 12.4 (10.0-20.0) Serum Glucose 102 mg/dL (74-106) Calcium Level 9.2 mg/dL (8.7-10.4) Urine Color Light-yellow (Yellow) Urine Clarity Clear (Clear) Urine pH 6.0 (5.0-9.0) Urine Specific [place] 1.028 (1.001-1.035) Urine Protein Negative (Negative) Urine Ketones Negative (Negative) Urine Blood Negative /uL (Negative) Urine Nitrite Negative (Negative) Urine Bilirubin Negative (Negative) Urine Urobilinogen Normal mg/dL (Negative) Urine Leukocyte Esterase Negative /uL (Negative) Urine RBC 1 /hpf (0 - 3) Urine Microscopic WBC 2 /HPF (0-3) Urine Squamous Epithelial Cells None seen /hpf (<5) Urine Bacteria None seen /hpf (None Seen) Urine Mucus Few (None Seen) Urine Glucose Normal mg/dL (Normal) Urine Opiates Screen Neg (NEGATIVE) Urine Fentanyl Screen Neg (NEGATIVE) Urine Barbiturates Screen Neg (NEGATIVE) Urine Phencyclidine Screen Neg (NEGATIVE) Urine Amphetamines Screen Neg (NEGATIVE) Urine Benzodiazepines Screen Neg (NEGATIVE) Urine Cocaine Screen Neg (NEGATIVE) Urine Cannabinoids Screen Neg (NEGATIVE) Erythrocyte Sedimentation Rate 6 mm/hr (0-20) C-Reactive Protein High Sensitivity 0.15 mg/dL (<1.0) Triglycerides Level 405 mg/dL (< 150) Cholesterol Level 205 mg/dL (< 200) LDL Cholesterol mg/dL (< 100) HDL Cholesterol 32 mg/dL (40-59) Absolute Neutrophils (auto) 4.3 x10E3/uL (1.4-7.0) Absolute Lymphocytes (auto) 3.4 x10E3/uL (0.7-3.1) Absolute Monocytes (auto) 0.9 x10E3/uL (0.1-0.9) Absolute Eosinophils (auto) 0.2 x10E3/uL (0.0-0.4) Absolute Basophils (auto) 0.0 x10E3/uL (0.0-0.2) Immature Granulocytes % 0 % (Not Estab.) Immature Granulocytes # 0 x10E3/uL (0.0-0.1) Immature Blood Cells (.) Hematology Comments (.) Percent CD4 Cells 21.9 % (30.8-58.5) Absolute CD4 Count 745 /uL (359-1519) T-Lymphocyte CD4/CD8 Ratio 0.60 (0.92-3.72) Percent CD8 Cells 36.8 % (12.0-35.5) Absolute CD8 Count 1251 /uL (109-897) Test 03/03/25 21:11 03/03/25 17:12 Troponin I High Sensitivity < 3 ng/L (</=54) Hemoglobin A1c 5.3 % A1C (<5.7) Phosphorus Level 4.2 mg/dL (2.4-5.1) Magnesium Level 2.1 mg/dL (1.6-2.6) Total Bilirubin 0.4 mg/dL (0.2-1.0) Direct Bilirubin < 0.1 mg/dL (<0.3) Aspartate Amino Transferase (AST) 41 U/L (13-40) Alanine Aminotransferase (ALT) 36 U/L (7-40) Alkaline Phosphatase 100 U/L (46-116) B-Type Natriuretic Peptide 3.66 pg/mL (0-100) Total Protein 7.6 g/dL (5.7-8.2) Albumin 4.7 g/dL (3.2-4.8) Vitamin B12 Level 488 pg/mL (211-911) Vitamin D 25-Hydroxy 23.0 ng/mL (30.0-100) Thyroid Stimulating Hormone (TSH) 0.98 uIU/mL (0.55-4.78) Other Laboratory Tests 03/06/25 05:13 Brief Hx & Hospital Course: Mr. Bethea is a 54 year old male with prior medical history of questionable cardiomyopathy, myocardial infarction (he is unsure if he had stents placed), hyperlipidemia, prediabetes, fatty liver, PUD, and HIV, who presents today with chief complaint of chest pain. He reports 3 days of constant pressure-like pain in left pectoral region, 7/10 intensity, non-radiating, in variable functional class, aggravated by laying flat and superficial palpationm and relieved when sitting up, associated with tachycardia and intermittent periods of sharp left pectoral pain described as 10/10 in intensity. Patient report upper respiratory syndromes 1 week ago. He denies nausea, vomiting, diaphoresis, abdominal pain, loss of consciousness, shortness of breath, and other symptoms. Due to persistence of symptoms he sought medical attention in the emergency department. On evaluation in the ED, vitals were stable. Twelve lead EKG shows sinus rhythm with possible early repolarization pattern. Initial labs show CBC and BMP within normal range. Troponins were negative. Chest x-ray shows no acute disease. He was given aspirin and was admitted for further work up and management. Cardiovascular: HI, Other (Cardiomyopathy) GI: Peptic Ulcer disease Hepatobiliary: Other (Hepatic steatosis) Infectious disease: HIV Endocrine: Other (Prediabetes) Past Surgical History: Other (Peptic ulcer repair) Smoke: Quit (States he smoked 1 pack a day for approximately 15-20 years with cessation 6 years ago) ALCOHOL: heavy (Refers he used to drink multiple alcoholic beverages a day and quit approximately 14 years ago) Drugs: Other (Refers previous history of crack use for approximately 8 years with cessation 14 years ago) Domestic Violence: Neg On further evaluation of the patient's chest pain ruled out ACS, EKG showed sinus rhythm with possible early repolarization pattern, 3 times troponin negative. He was given loading dose of aspirin and was started on aspirin maintenance dose. Pericarditis was ruled out by negative EKG and signs symptoms. Because of statin intolerance, we started the patient on ezetimibe. Heart score of 4 points. Cardiology consultation was done. Transthoracic echo revealed mild LVH with ejection fraction 65%. Vitamin-D deficiency was repleted by vitamin-D. S stress echocardiography also revealed no ischemia. Because of the patient's HIV positive status we ordered CD4/CD8 count, which is pending on the day of discharge. On the day of discharge, the patient was hemodynamically stable, verbalized understanding of the discharge plan and agreed to follow up with DC clinic and PCP. Examination Pt is lying on bed General Appearance: Alert, Oriented X3, Cooperative, Mild distress HEENT: Atraumatic, Mucous membranes moist/pink Respiratory: Clear to auscultation, Normal air movement, No added sounds Cardiovascular: Regular rate, Normal S1, Normal S2, No murmurs Abdominal/ : Active bowel sounds, Soft, no distention, no tenderness Extremities: No edema, Normal pulses, No tenderness/swelling Skin: No Significant rash, except past surgical scars Neuro: Normal speech, sensorimotor deficits none Psych/Mental Status: Mental status NL, Mood NL Nurse was there as contact lens fitter during examination Operations or Procedures PATIENT: KAREN MENA ACCT: [id number] UNIT: [id number] : 1970 LOC: [facility] ROOM / BED: [facility]0T / B AGE / SEX: 54 / M ADM STATUS: ADM IN SERVICE 35 ORDERING PHYSICIAN: AFRICA LORENZANA RESIDENT PROCEDURE(s): ECIDC - ECHO 2D MODE CARDIAC DOP REASON: Eval EF ORDER NUMBER(s): [id number], ACCESSION NUMBER(s): [id number] APPROVED REPORT EXAM: Two-dimensional and M-mode echocardiogram with Doppler and color Doppler. Blood Pressure: 107/72 mmHg INDICATION Eval EF RISK FACTORS Height: 66, Weight: 169 DIMENSIONS LVDd 4.5 (3.8-5.7cm) LA (2D) 3.7 (1.9-4.0cm) Aortic Root 3.7 (2.0- 3.7cm) LVDs 3.3 (2.5-4.0cm) LA (MM) (1.9-4.0cm) Aortic Cusp Exc 1.8 (1.5- 2.0cm) EF (%) 52.0 (55-70%) Rt. Atrium 3.9 (1.9-4.0cm) Asc. Aorta cm IVSd 1.0 (0.7-1.1cm) RV (D) (1.8-2.4cm) PWd 1.1 (0.7-1.1cm) Mitral Valve Mitral Mitral Stenosis E wave 0.48m/s MV Mean GR. mmHg A wave 0.57m/s MV Peak GR. mmHg E/A ratio 0.8 2D MVA cm2 DECEL Time 291ms PRESS 1/2 Time 66ms IVRT ms Dop MVA 3.36cm2 Aortic Valve Aortic Valve Aortic Stenosis V1 0.82m/s AO Mean GR. 4mmHg V2 1.30m/s AO Peak GR. 7mmHg Pulmonic Valve V2 0.93m/s Tricuspid Valve TR Velocity 1.68m/s RVSP 15mmHg Conclusion MILD LVH AND MILD LV DIASTOLIC DYSFUNCTION LV EF IS 65% NORMAL VALVES NO EFFUSION Cardiolite stress test: no ischemia Condition at Discharge: Stable Final Diagnosis/Problems List Acute chest pain, likely musculoskeletal, ruled out ACS Unstable angina Pericarditis, ruled out History of HI Cardiomyopathy Hyperlipidemia Vitamin-D deficiency Prediabetes HIV Discharge Disposition: Home Discharge Instruct/Medications Diet: Cardiac 2g Na,low cholest Activity: No Restrictions, As Tolerated Follow Up/Referral: F/up in the discharge clinic in one week Medications: as per JUL Scheduled Acetaminophen (Acetaminophen), 500 MG PO Q4HP Aspirin (Aspir-81), 1 TAB PO DAILY Atorvastatin Calcium (Atorvastatin Calcium), 20 MG PO HS Carvedilol (Carvedilol), 1 TAB PO DAILY, (Reported) Jublsmcni-Lmpexeglsh-Ffvacnhxr (Symtuza [id number] mg), 1 TAB PO DAILY, (Reported) Enalapril Maleate (Enalapril Maleate), 2 TAB PO DAILY, (Reported) Ergocalciferol (Vitamin D 57440 Unit), 50,000 UNIT PO Q7D Pantoprazole Sodium Sesquihydr (Pantoprazole Sodium), 1 TAB PO DAILY, (Reported) Scheduled PRN Acetaminophen (Acetaminophen), 650 MG PO Q6HP PRN Albuterol Sulfate (Ventolin Mdi), 90 MCG IN Q4HP PRN Carisoprodol (Soma), 250 MG PO Q12HP PRN Discontinued Medications Doxycycline Hyclate (Doxycycline Hyclate), 1 TAB PO BID Oseltamivir Phosphate (Tamiflu), 75 MG PO Q12HR Discharge Statement: "Patient was advised to return to the ER or call 911 if any headaches, dizziness, shortness of breath, chest pain, abdominal pain, bleeding, fevers, or worsening of medical condition. Patient was counseled about treatment plan, medications, possible side effects, patientverbalized understanding. All questions were answered to the best of my ability. This discharge took greater then 30 minutes in planning, reviewing documentation, counseling the patient, and discussing with other team members." ASSESSMENT ASSESSMENT Assessment Acute chest pain, likely musculoskeletal, ruled out ACS Date of Service: Mar 06, 2025 Billing Provider: DUSTIN ALCAZAR MD Common Visit Codes: 45376-HID/OBS DISCH DAY >30min SACHI,TYLER RESIDENT Mar 07, 2025 14:48 DUSTIN ALCAZAR MD Mar 08, 2025 20:42
--- NOTE | 2025-03-10 08:54 | DVHSR ---
APPROVED REPORT Exam: Nuclear Stress Test Indication: Chest pain BMI: 0 Stress Test Details Stress Test: Pharmacologic stress testing performed using 0.4 mg of regadenoson per 5 mL given IV ov er 10 seconds. HR Resting HR: 88 bpmMax Heart Rate (APMHR): 166.630174 bpm Max HR Achieved: 126 bpmTarget HR (85% APMHR): 141.034099 bpm % of APMHR: 75.90 Recovery HR: 95 bpm BP Resting BP: 107/77 mmHg Recovery BP: 115/71 mmHg ECG Resting ECG: Sinus Rhythm Clinical Reason for Termination: Completed protocol Nurse Comments Recieved pt. from [facility]. A/Ox4 on RA. Connected to cardiac cath tech, VS stable. Rt IV flushes well. Reviewed POC. Pt. verbalized understanding of procedure including risks and side effects, agrees for stress testing. Lexiscan stress test performed per protocol. [facility] tech administered Cardiolite. Pt. tolerated well . Pt. stable, no change on exam. VS returned to baseline. Transferred to [facility] via wheelchair w/ te ch. Stress ECG Conclusion lvef 47% no severe ischemia noted mild LV dysfunction GI artifact noted NM EXAM: Myocardial Perfusion REST/STRESS Imaging Protocol: Rest Tc-99m/Stress Tc-99m 1 day Resting Data Rest SPECT myocardial perfusion imaging was performed in supine position 60 minutes following the int ravenous injection of 10.5 mCi of Tc-99m Sestamibi. Time of rest injection: 08:37 Date: 03/05/2025 Time of rest imagin:37 Date: 03/05/2025 Pharmacologic Stress Pharmacologic stress test was performed by injecting Regadenoson 0.4 mg IV push followed by the intra venous injection of 29.4 mCi of Tc-99m Sestamibi. Time of stress injection: 09:40 Date: 03/05/2025 Time of stress imagin:40 Date: 03/05/2025 Administration Route: IV Administration Site: Right Arm Gated Stress SPECT was performed 60 minutes after stress injection. The images were gated to evaluate regional wall motion and calculate left ventricular ejection fracti on. Stress only was performed in the Supine position. Nuclear Conclusion Nuclear Findings: negative for ischemia lvef 47% no severe ischemia noted mild LV dysfunction GI artifact noted
== END 2025-03-06 20:25 | disposition home or self-care (01) | DRG 198 ==
LOC: ER 16:50 → OVERFLOW 20:36 → TELE-EAST 03-04 02:07
PROVIDERS: ADMIT Internal Medicine Geriatric Medicine; ATTEND Internal Medicine Geriatric Medicine
DX: I20.0 Unstable angina (principal); I42.9 Cardiomyopathy, unspecified; I10 Essential (primary) hypertension; E78.5 Hyperlipidemia, unspecified; R73.03 Prediabetes; E55.9 Vitamin D deficiency, unspecified; Z79.82 Long term (current) use of aspirin; Z79.899 Other long term (current) drug therapy; I25.2 Old myocardial infarction; Z87.11 Personal history of peptic ulcer disease; Z83.3 Family history of diabetes mellitus
CPT/HCPCS: 36415; 71045; 78452; 80048; 80061; 80076; 80307; 81001; 82306; 82607; 83036; 83735; 83880; 84100; 84443; 84484; 85025; 85652; 86141; 86360; 93005; 93017; 93306; 99291; G0378

== ENCOUNTER 2025-04-10 17:19 | Emergency (ER) | payer MEDICAID ==
[~2025-04-10] VITALS: Ht 167.6 cm; Wt 97.2 kg
[~2025-04-10 17:19] MED LIST changes: +ATOR20TA50 PO; -DOXY-286 PO; -TAMIFLU PO
[2025-04-10 17:22] VITALS: BP 126/93; PULSE 85; RESP 18; TEMP 97.2; O2SAT 98
--- NOTE | 2025-04-10 18:28 | ED.PDOC ---
HPI (NEURO) HPI Comments 54-year-old male presents to the ED chief complaint headache times 10 days. Reports 10/10 pain top and back of head into neck. Has taken Tylenol or Motrin with little relief. Reports no known injury. Denies nausea, vomiting does note some blurry vision in her right eye. Reports no weakness or numbness. Denies worst headache of his life notes no fevers or chills diarrhea or recent cold- like symptoms. Chief Complaint: Headache Time Seen by MD: 18:05 Primary Care Provider: UNKNOWN Reviewed Notes: Nurses Notes, Medications, Allergies Information Source: Patient Mode of Arrival: Ambulatory Past Medical History PAST MEDICAL HISTORY: DM, HIV, HTN, ID, PUD Surgical History: Denies all surgeries Family History Family History: Reviewed,noncontributory to illness, Family hx of Cancer Social History Smoker: Non-Smoker Alcohol: Denies ETOH Use Drugs: Denies Drug Use Lives In: Home All Other Systems: Reviewed and Negative (See HPI) Physical Exam General Appearance: No Apparent Distress, Normal HEENT: Normal ENT Inspection, Pharynx Normal, TMs Normal Neck: Full Range of Motion, Non-Tender Respiratory: Accessory Muscle Use, Chest Non-Tender, Lungs Clear, No Respiratory Distress, Normal Breath Sounds Cardiovascular: No Edema, No JVD, No Murmur, No Gallop, Normal Peripheral Pulses, Regular Rate/Rhythm Breast Exam: Deferred Gastrointestinal: No Organomegaly, Non Tender, No Pulsatile Mass, Normal Bowel Sounds, Soft Genitalia: Deferred Pelvic: Deferred Rectal: Deferred Extremities: Normal range of motion, No pedal edema Musculoskeletal : Apperance: Normal Neurologic: Alert, No Motor Deficits, Normal Affect, Normal Mood, No Sensory Deficits Cerebellar Function: Normal Reflexes: Normal Skin: Dry, Normal Color, Warm Lymphatic: No Adenopathy Was a procedure done? Was a procedure done?: No Differential Diagnosis (SZ) Headache: Epidural Hemorrhage, Intracerebral Hemorrhage, Subarachnoid Hemorrhage, Subdural Hemorrhage, Mass Lesion, Meningitis, Post-Traumatic, Sinusitis, Trigeminal Neuralgia X-Ray, Labs, Meds, VS Vital Signs Date Time Temp Pulse Resp B/P (MAP) Pulse Ox O2 Delivery O2 Flow Rate FiO2 04/10/25 17:22 97.2 85 18 126/93 98 97.2 Current Medications Medications (Trade) Dose Ordered Sig/Marly Route Start Time Stop Time Status Last Admin Sodium Chloride 1,000 ml @ 1,000 mls/hr Q1H ONCE IV 04/10/25 18:45 04/10/25 19:44 DC 04/10/25 18:59 Ketorolac Tromethamine (Toradol Injection) 30 mg ONCE ONCE IV 04/10/25 18:45 04/10/25 18:46 DC 04/10/25 20:17 Dexamethasone Sodium Phosphate (Decadron Injection) 10 mg ONCE ONCE IV 04/10/25 18:45 04/10/25 18:46 DC 04/10/25 20:16 Prochlorperazine Edisylate (Compazine Inj) 5 mg ONCE ONCE IV 04/10/25 18:45 04/10/25 18:46 DC 04/10/25 20:17 X-Ray, Labs, Meds, VS Comment CT brain IMPRESSION: 1. No acute territorial infarct, intracranial hemorrhage, or mass effect. If clinical symptoms persist, MRI may be beneficial in further evaluation. 2. Paranasal sinus disease as detailed. CT brain shows no acute intracranial concerns. Patient reports improvement after medication and IV fluids CT does show ethmoid sinusitis script trial of antibiotics. Advised patient to rest increase p.o. fluids with electrolytes. Follow up with his PCP in 2-3 days as necessary ER return precautions given patient indicates understanding agrees with discharge plan of care. Images Reviewed?: Images reviewed and evaluated by me Time of 1ST Reevaluation: 18:20 Reevaluation 1ST: Unchanged Reevaluation 2ND: Improved Patient Education/Counseling: Diagnosis, Treatment, Need For Follow Up Family Education/Counseling: No Family Present Departure 1 Departure Time of Disposition: 20:31 Impression: Primary Impression: Sinusitis Qualified Codes: J32.2 - Chronic ethmoidal sinusitis Additional Impression: Headache Disposition: HOME / SELF CARE / HOMELESS Condition: Stable e-Prescriptions Amoxicillin & Pot Clavulanate (AUGMENTIN TABLET) 875 Mg Tb 875 MG PO BID for 7 Days, #14 TAB Prov: IMELDA TATUM 04/10/25 Discharged With: Self Critical Care Note Critical Care Time?: No Stability Stability form required: IMELDA Valladares Apr 10, 2025 18:28
[2025-04-10] MEDS: SODIUM CHLORIDE 0.9% 1,000 ML IV ONE (18:59)
--- NOTE | 2025-04-10 20:02 | DVH ---
EXAM: CT HEAD WITHOUT CONTRAST INDICATION: Worst headache of his life TECHNIQUE: CT of the head without intravenous contrast. Radiation Dose : 1. Head: CT Dose: CTDI volume is 50.3 mGy. Dose-length product is 806.78 mGy*cm The dose indicators for CT are the volume Computed Tomography (CT) Dose Index (CTDIvol) and the Dose Length Product (DLP), and are measured in units of mGy and mGy-cm, respectively. These indicators are not patient dose, but values generated from the CT scanner acquisition factors. The report includes radiation exposure data for exposures received during this examination. COMPARISON: None FINDINGS: Motion artifact degrades fine detail. The cerebral parenchyma appears to be normal configuration and attenuation. The ventricles, cisterns, and sulci appear age-appropriate. There is no evidence for acute territorial infarct, hemorrhage, or mass effect. The orbits are normal. [id number] mucosal thickening within the ethmoid air cells. The soft tissues and osseous structures appear within normal limits. IMPRESSION: 1. No acute territorial infarct, intracranial hemorrhage, or mass effect. If clinical symptoms persist, MRI may be beneficial in further evaluation. 2. Paranasal sinus disease as detailed. Radiation optimization: All CT scans at this facility use at least one of these dose optimization techniques: automated exposure control mA and/or kV adjustment per patient size (includes targeted exams where dose is matched to clinical indication) or iterative reconstruction.
[2025-04-10] MEDS: KETOROLAC TROMETH 30 MG/ML 1ML VIAL IV ONE (20:17)
[2025-04-10] MEDS: PROCHLORPERAZINE EDISYLATE 5 MG/ML 2ML VIAL IV ONE (20:17)
[2025-04-10] MEDS ORDERED: AUG875T PO (20:32)
== END 2025-04-10 21:08 | disposition home or self-care (01) ==
LOC: ER 17:19
DX: J32.2 Chronic ethmoidal sinusitis (principal); R51.9 Headache, unspecified; E11.9 Type 2 diabetes mellitus without complications; I10 Essential (primary) hypertension; Z87.11 Personal history of peptic ulcer disease
CPT/HCPCS: 70450; 96361; 96374; 96375; 99285; J0780; J1100; J1885; J7030